=== PATIENT | female | born 1940 | race Caucasian/White ===

== ENCOUNTER 2017-04-11 11:36 | Inpatient (IN) | payer OTHER, MEDICARE ==
--- NOTE | 2017-04-11 12:20 | PDOC ---
Attending Attestation - Resident Resident Name: RomanNavneet - ED Attending Attestation I have performed the following: I have examined & evaluated the patient, The case was reviewed & discussed with the resident, I agree w/resident's findings & plan, Exceptions are as noted - HPI HPI: 04/11/17 12:33 76y F pmhx afib (on ac), cad, RA, hl, htn, presents with L neck pain radiating to the back, worsening with radaition of the L arm, has been worsening. No recent trauma/falls. Pt states it started gradually on Wednesday when she woke up , mild aching on the L shoulder/neck. Since then it had gotten gradually worse, until today it hurts with any movement. Pt states if sh eis sitting still and has her arm 'situated' sh eis pain free, but any movement of her arm, or trying to sit up will cause her pain. Pt does endorse some SOB since tihs started. Pt denies any numbness/tingling/wekaness, dizziness/vertigo, vision changes, hemoptysis, n/v, fever/chills, coughing, abd pain, back pain, trauma/falls/new excercises. On exam pt is in no distress until she tries to get up. GENERAL: The patient is awake, alert, and fully oriented, Nontoxic - in no acute distress. HEAD: Normocephalic, atraumatic. EYES: extraocular movements intact, sclera anicteric, conjunctiva clear. ENT: Normal voice, Moist mucous membranes. NECK: Normal range of motion, supple, no reproducible neck tenderness, no stridor/bruit LUNGS: bibasilar rales HEART: irregularly irregular ABDOMEN: Soft, nontender, normoactive bowel sounds. No guarding, no rebound. . No CVA tenderness EXTREMITIES: pulses symmetirc b/l, Normal range of motion, no edema. mild tendeness to the trapezius, anterior aspect of shoulder without rashes/ ecchymosis or signs of trauma NEUROLOGICAL: No facial assymetry, Normal speech, sensatio nsymmetric in face, arms/legs. PSYCH: Normal mood, normal affect. SKIN: Warm, Dry, normal turgor, ddx likely muscular pain, but consider possible carotid/aortic dissection, atypical acs will ck labs will obtain blood work, cxr ekg to screen for acs will reassess - Physicial Exam PE: 04/12/17 20:25 see above - Medical Decision Making 04/11/17 16:54 pts cxr noted for cardiomegaly obtained CTa Chest/abd to r/o disesction no dissection or PE however small to moderate effsion noted do not suspect that this is the caues of her pain, however may be relateble to her sob - will discuss with cardiology regarding disposition but anticipate admission/obs Heart Score/ECG Review - ECG Impressions Comment:: 04/11/17 13:05 Twelve-lead EKG was performed and reviewed by me. Irregularly irregular Rate of 102 T wave flattening in V5 V6, T-wave inversions in 1 and aVL
[2017-04-11] MEDS ORDERED: morphine CARPU-JECT 2 MG/1 ML DISP.SYRIN IVPUSH ONE (12:38)
[2017-04-11] MEDS ORDERED: MORPHINE SULFATE 10 MG/1 ML *VIAL ONE ×2 (12:40→15:22)
[2017-04-11 12:47] LABS: HEMATOCRIT 38.4 % (32.4-45.2); HEMOGLOBIN 13.2 GM/dL (10.7-15.3); MCH 34.9 pg (25.7-33.7); MCHC 34.3 g/dl (32.0-36.0); MEAN CELL VOLUME 101.6 fl (80-96); MEAN PLT VOLUME 7.3 fl (7.5-11.1); PLATELET COUNT 210 K/MM3 (134-434); RBC 3.78 M/mm3 (3.60-5.2); RDW 13.1 % (11.6-15.6)
[2017-04-11 12:59] LABS: INR 1.22 (0.82-1.09); PROTHROMBIN TIME (PATIENT) 13.8 SEC (9.98-11.88)
[2017-04-11 13:02] LABS: ACTIVATED PTT 40.3 SECONDS (26.9-34.4)
[2017-04-11] MEDS ORDERED: ACETAMINOPHEN 325 MG TABLET (FP) PO ONE (13:09)
[2017-04-11] MEDS ORDERED: ACETAMINOPHEN 325 MG TABLET (FP) ONE (13:41)
--- NOTE | 2017-04-11 13:44 | PDOC ---
History of Present Illness - General Chief Complaint: Chest Pain Stated Complaint: LT ARM PAIN, SOB Time Seen by Provider: 04/11/17 12:04 History Source: Patient Exam Limitations: No Limitations - History of Present Illness Initial Comments: 04/11/17 13:43 76F with pmh of gouty arthritis, cardiac disorder with stent placement, atrial fibrillation on Xarelto, hypertension, hyperlipidemia presents with pain over her left back of her neck down to her back to the right scapula and down the left arm since Wednesday. She states that she also has decreased range of motion in her left arm due to pain, No headache, nausea, vomiting, abdominal pain, weakness. 04/11/17 13:44 04/11/17 13:55 Past History - Past Medical History Allergies/Adverse Reactions: Allergies Allergy/AdvReac Type Severity Reaction Status Date / Time No Known Allergies Allergy Verified 04/11/17 11:38 Home Medications: Ambulatory Orders Aspirin 81 mg PO DAILY 04/11/17 Atorvastatin Ca [Lipitor] 20 mg PO HS 04/11/17 Diltiazem Cd [Cardizem Cd -] 240 mg PO DAILY 04/11/17 Lisinopril [Prinivil -] 40 mg PO DAILY 04/11/17 Rivaroxaban [Xarelto -] 20 mg PO DAILY 04/11/17 Cardiac Disorders: Yes (afib) CVA: No COPD: No HTN: Yes Kidney Stones: Yes - Surgical History Cardiac Surgery: Yes (card stent) - Suicide/Smoking/Psychosocial Hx Smoking History: Current every day smoker Number of Cigarettes Smoked Daily: 3 Information on smoking cessation initiated: Yes 'Breaking Loose' booklet given: 04/11/17 Hx Alcohol Use: No Drug/Substance Use Hx: No Substance Use Type: None Review of Systems - Review of Systems Able to Perform ROS?: Yes Is the patient limited Sinhala proficient: No Constitutional: No: Symptoms Reported HEENTM: No: Symptoms Reported Respiratory: No: Symptoms reported Cardiac (ROS): No: Symptoms Reported ABD/GI: No: Symptoms Reported : No: Symptoms Reported Musculoskeletal: Yes: See HPI Integumentary: No: Symptoms Reported Neurological: No: Symptoms reported All Other Systems: Reviewed and Negative *Physical Exam - Vital Signs Last Vital Signs Temp Pulse Resp BP Pulse Ox 98.3 F 94 H 18 148/100 100 04/11/17 11:39 04/11/17 11:39 04/11/17 11:39 04/11/17 11:39 04/11/17 11:39 - Physical Exam General Appearance: Yes: Nourished, Appropriately Dressed, Apparent Distress HEENT: positive: EOMI, SHANAE, Normal ENT Inspection Neck: positive: Tender Respiratory/Chest: positive: Lungs Clear, Normal Breath Sounds. negative: Chest Tender, Respiratory Distress Cardiovascular: positive: Regular Rhythm, Regular Rate, S1, S2 Gastrointestinal/Abdominal: positive: Normal Bowel Sounds, Flat, Soft. negative : Tender Extremity: positive: Normal Capillary Refill, Normal Inspection, Normal Range of Motion Neurologic: positive: Fully Oriented, Alert, Normal Mood/Affect, Normal Response ED Treatment Course - LABORATORY CBC & Chemistry Diagram: 04/11/17 12:30 04/11/17 13:53 - ADDITIONAL ORDERS Additional order review: Laboratory Results 04/11/17 04/11/17 04/11/17 Unknown 12:30 12:30 PT with INR INR PTT (Actin FS) Sodium Cancelled Potassium Cancelled Chloride Cancelled Carbon Dioxide Cancelled Anion Gap Cancelled BUN Cancelled Creatinine Cancelled Creat Clearance w eGFR Cancelled Random Glucose Cancelled Calcium Cancelled Total Bilirubin Cancelled AST Cancelled ALT Cancelled Alkaline Phosphatase Cancelled Creatine Kinase Cancelled Troponin I Cancelled Total Protein Cancelled Albumin Cancelled Blood Type O POSITIVE Antibody Screen Negative 04/11/17 12:30 PT with INR 13.80 H INR 1.22 H PTT (Actin FS) 40.3 H Sodium Potassium Chloride Carbon Dioxide Anion Gap BUN Creatinine Creat Clearance w eGFR Random Glucose Calcium Total Bilirubin AST ALT Alkaline Phosphatase Creatine Kinase Troponin I Total Protein Albumin Blood Type Antibody Screen 04/11/17 12:30 RBC 3.78 MCV 101.6 H MCHC 34.3 RDW 13.1 MPV 7.3 L Neutrophils % No Result Required. Lymphocytes % No Result Required. - Medications Given in the ED: ED Medications Discontinued Medications Generic Name Dose Route Start Last Admin Trade Name Freq PRN Reason Stop Dose Admin Morphine Sulfate 2 mg 04/11/17 12:38 04/11/17 12:44 Morphine Injection - IVPUSH 04/11/17 12:39 2 mg ONCE ONE Administration Medical Decision Making - Medical Decision Making 04/11/17 13:57 will evaluate pain with xray, b/l bp and basic labs. *DC/Admit/Observation/Transfer Diagnosis at time of Disposition: Pericardial effusion - Discharge Dispostion Disposition: HOME Condition at time of disposition: Good Admit: Yes - Referrals - Patient Instructions - Post Discharge Activity
[2017-04-11 14:06] LABS: PLATELET ESTIMATE ADEQUATE
--- NOTE | 2017-04-11 14:19 | EKG ---
Test Reason : Blood Pressure : / mmHG Vent. Rate : 102 BPM Atrial Rate : 105 BPM P-R Int : 000 ms QRS Dur : 108 ms QT Int : 336 ms P-R-T Axes : 000 -18 132 degrees QTc Int : 437 ms ATRIAL FIBRILLATION WITH RAPID VENTRICULAR RESPONSE MINIMAL VOLTAGE CRITERIA FOR LVH, MAY BE NORMAL VARIANT ABNORMAL ECG NO PREVIOUS ECGS AVAILABLE Confirmed by MD RADHA, CHRISTOPH ([id number]) on 04/11/2017 2:18:41 PM Referred By: Confirmed By:CHRISTOPH GARCIA MD
[2017-04-11 14:58] LABS: ALBUMIN 3.4 g/dl (3.4-5.0); ANION GAP 6 (8-16); BILIRUBIN,TOTAL 0.6 mg/dL (0.2-1.0); BLOOD UREA NITROGEN 10 mg/dL (7-18); CALCIUM 9.3 mg/dL (8.5-10.1); CHLORIDE 104 mmol/L (98-107); CO2 30 mmol/L (21-32); CREATININE 0.5 mg/dL (0.55-1.02); GLUCOSE,RANDOM 89 mg/dL (74-106); POTASSIUM 4.6 mmol/L (3.5-5.1); SGOT/AST 11 U/L (15-37); SGPT/ALT 13 U/L (12-78); SODIUM 140 mmol/L (136-145); TOT PROT 6.5 g/dl (6.4-8.2)
[2017-04-11 15:01] LABS: ALK PHOS 139 U/L (45-117)
[2017-04-11] MEDS ORDERED: morphine CARPU-JECT 4 MG/1 ML DISP.SYRIN IVPUSH ONE (15:20)
[2017-04-11] MEDS ORDERED: CYCLOBENZAPRINE HCL 10 MG TABLET (FP) PO ONE (16:14)
[2017-04-11] MEDS ORDERED: CYCLOBENZAPRINE HCL 10 MG TABLET (FP) ONE (16:33)
--- NOTE | 2017-04-11 19:34 | PN ---
Teaching Attending Note Name of Resident: Denice Herrera ATTENDING PHYSICIAN STATEMENT I saw and evaluated the patient. I reviewed the resident's note and discussed the case with the resident. I agree with the resident's findings and plan as documented. SUBJECTIVE: 76 F with pmhx. of gouty arthritits, Cardiac disorder?? CAD w stents, A-Fob on Xarelto, HTN, HLD, who presents with left back and neck pain radiating to right scapula. OBJECTIVE: Physical: VS: Vital Signs Period Temp Pulse Resp BP Sys/Wilder Pulse Ox Last 24 Hr 98.3 F 89-94 18-18 148-157/77-100 99-100 GEN: HEENT: CARD: RESP: ABD: EXT: CBCD WBC 8.0 K/mm3 (4.0-10.0) 04/11/17 12:30 RBC 3.78 M/mm3 (3.60-5.2) 04/11/17 12:30 Hgb 13.2 GM/dL (10.7-15.3) 04/11/17 12:30 Hct 38.4 % (32.4-45.2) 04/11/17 12:30 MCV 101.6 fl (80-96) H 04/11/17 12:30 MCHC 34.3 g/dl (32.0-36.0) 04/11/17 12:30 RDW 13.1 % (11.6-15.6) 04/11/17 12:30 Plt Count 210 K/MM3 (134-434) 04/11/17 12:30 MPV 7.3 fl (7.5-11.1) L 04/11/17 12:30 CMP Sodium 140 mmol/L (136-145) 04/11/17 13:53 Potassium 4.6 mmol/L (3.5-5.1) 04/11/17 13:53 Chloride 104 mmol/L (98-107) 04/11/17 13:53 Carbon Dioxide 30 mmol/L (21-32) 04/11/17 13:53 Anion Gap 6 (8-16) L 04/11/17 13:53 BUN 10 mg/dL (7-18) 04/11/17 13:53 Creatinine 0.5 mg/dL (0.55-1.02) L 04/11/17 13:53 Creat Clearance w eGFR > 60 (>60) 04/11/17 13:53 Random Glucose 89 mg/dL (74-106) 04/11/17 13:53 Calcium 9.3 mg/dL (8.5-10.1) 04/11/17 13:53 Total Bilirubin 0.6 mg/dL (0.2-1.0) 04/11/17 13:53 AST 11 U/L (15-37) L 04/11/17 13:53 ALT 13 U/L (12-78) 04/11/17 13:53 Alkaline Phosphatase 139 U/L (45-117) H 04/11/17 13:53 Total Protein 6.5 g/dl (6.4-8.2) 04/11/17 13:53 Albumin 3.4 g/dl (3.4-5.0) 04/11/17 13:53 CARDIAC ENZYMES Creatine Kinase Cancelled 04/11/17 Unknown Troponin I Cancelled 04/11/17 Unknown CHEST CTA: No PE, Small- Mod, Cardio Effusion, Small R. Renal Cyst 2cm, 2 cm R. adrenal lesion represents adrenal adenoma. NO Ct evidence of acute proces EKG: A-Fib 105 W RVR QtC 437, T wave flat V5/V6 TWI AVL. Abdomen CTA- Negative CXR- Cardiomegaly, No Acute Process ASSESSMENT AND PLAN: 76 F with gouty arthritis who presents with shoulder pain found to have a pericarial effusion.
[2017-04-11 21:24] VITALS: BMI 28.8
--- NOTE | 2017-04-11 22:11 | HP ---
Admitting History and Physical - Admission Chief Complaint: Left Shoulder/Arm pain, Neck Pain, SOB History of Present Illness: This is a 76 y/o woman from home. Who presents to the ED with left shoulder, left arm pain radiating to her neck and SOB x 2 days. Patient describes the pain as throbbing/aching increased on movement. Patient denies fall or recent trauma. Patient denies dizziness, CP or palpitations. Patient denies fever, chills, cough, AP, N/V/D, constipation, dysuria. History Source: Patient Limitations to Obtaining History: No Limitations - Past Medical History Cardiovascular: Yes: AFIB, CAD, HTN, Hyperlipdemia ...: No Musculoskeletal: Yes: Chronic low back pain, Osteoarthritis Rheumatology: Yes: Gout (Arthritis) - Past Surgical History Past Surgical History: Yes: Stent - Smoking History Smoking history: Current every day smoker Have you smoked in the past 12 months: Yes Aproximately how many cigarettes per day: 3 - Alcohol/Substance Use Hx Alcohol Use: No History of Substance Use: reports: None - Social History ADL: Independent History of Recent Travel: No Home Medications - Allergies Allergies/Adverse Reactions: Allergies Allergy/AdvReac Type Severity Reaction Status Date / Time No Known Allergies Allergy Verified 04/11/17 11:38 - Home Medications Home Medications: Ambulatory Orders Aspirin 81 mg PO DAILY 04/11/17 Atorvastatin Ca [Lipitor] 20 mg PO HS 04/11/17 Diltiazem Cd [Cardizem Cd -] 240 mg PO DAILY 04/11/17 Lisinopril [Prinivil -] 40 mg PO DAILY 04/11/17 Rivaroxaban [Xarelto -] 20 mg PO DAILY 04/11/17 Zolpidem Tartrate [Ambien] 10 mg PO HS 04/11/17 Review of Systems - Review of Systems Constitutional: reports: No Symptoms Eyes: reports: No Symptoms HENT: reports: No Symptoms Neck: reports: Decreased ROM, Pain on Movement Cardiovascular: reports: Shortness of Breath Respiratory: reports: SOB Gastrointestinal: reports: No Symptoms Genitourinary: reports: No Symptoms Breasts: reports: No Symptoms Reported Musculoskeletal: reports: Back Pain, Decreased ROM, Extremity Pain (left shoulder/humerus), Joint Pain Integumentary: reports: No Symptoms Neurological: reports: No Symptoms Endocrine: reports: No Symptoms Hematology/Lymphatic: reports: No Symptoms Psychiatric: reports: No Symptoms Physical Examination Vital Signs: Vital Signs Temperature 98.3 F 04/11/17 21:00 Pulse Rate 102 H 04/11/17 21:00 Respiratory Rate 20 04/11/17 21:00 Blood Pressure 178/90 04/11/17 21:00 O2 Sat by Pulse Oximetry (%) 98 04/11/17 21:00 Constitutional: Yes: Mild Distress, Obese Eyes: Yes: WNL, Conjunctiva Clear, PERRL HENT: Yes: WNL, Atraumatic, Normocephalic Neck: Yes: Supple, Trachea Midline, Decreased ROM, Tenderness Cardiovascular: Yes: Pulse Irregular, S1, S2 Respiratory: Yes: WNL, Regular, CTA Bilaterally Gastrointestinal: Yes: WNL, Normal Bowel Sounds, Soft, Abdomen, Obese ...Rectal Exam: Yes: Deferred Renal/: Yes: WNL Breast(s): Yes: WNL Musculoskeletal: Yes: Back Pain, Joint Stiffness Edema: No Peripheral Pulses WNL: Yes Integumentary: Yes: WNL Neurological: Yes: WNL, Alert, Oriented, Cran Nerves II-XII Intact ...Motor Strength: LUE (3/5), LLE (5/5), RUE (5/5), RLE (5/5) Psychiatric: Yes: WNL, Alert, Oriented Labs: CBC, BMP 04/11/17 12:30 04/11/17 13:53 Laboratory Results - last 24 hr 04/11/17 04/11/17 04/11/17 12:30 12:30 12:30 WBC 8.0 RBC 3.78 Hgb 13.2 Hct 38.4 MCV 101.6 H MCH 34.9 H MCHC 34.3 RDW 13.1 Plt Count 210 MPV 7.3 L Total Counted 100 Neutrophils % No Result Required. Neutrophils % (Manual) 71.0 Lymphocytes % No Result Required. Lymphocytes % (Manual) 6.0 L Monocytes % (Manual) 23 H* Platelet Estimate Adequate Platelet Comment No clumping noted PT with INR 13.80 H INR 1.22 H PTT (Actin FS) 40.3 H Sodium Potassium Chloride Carbon Dioxide Anion Gap BUN Creatinine Creat Clearance w eGFR Random Glucose Calcium Total Bilirubin AST ALT Alkaline Phosphatase Creatine Kinase Troponin I Total Protein Albumin Urine Color Urine Appearance Urine pH Ur Specific [place] Urine Protein Urine Glucose (UA) Urine Ketones Urine Blood Urine Nitrite Urine Bilirubin Urine Urobilinogen Ur Leukocyte Esterase Urine WBC (Auto) Urine RBC (Auto) Ur Epithelial Cells Urine Bacteria HIV 1&2 Antibody Screen HIV P24 Antigen Blood Type O POSITIVE Antibody Screen Negative 04/11/17 04/11/17 04/11/17 12:30 13:18 13:53 WBC RBC Hgb Hct MCV MCH MCHC RDW Plt Count MPV Total Counted Neutrophils % Neutrophils % (Manual) Lymphocytes % Lymphocytes % (Manual) Monocytes % (Manual) Platelet Estimate Platelet Comment PT with INR INR PTT (Actin FS) Sodium Cancelled 140 Potassium Cancelled 4.6 Chloride Cancelled 104 Carbon Dioxide Cancelled 30 Anion Gap Cancelled 6 L BUN Cancelled 10 Creatinine Cancelled 0.5 L Creat Clearance w eGFR Cancelled > 60 Random Glucose Cancelled 89 Calcium Cancelled 9.3 Total Bilirubin Cancelled 0.6 AST Cancelled 11 L ALT Cancelled 13 Alkaline Phosphatase Cancelled 139 H Creatine Kinase 21 L Troponin I < 0.02 Total Protein Cancelled 6.5 Albumin Cancelled 3.4 Urine Color Urine Appearance Urine pH Ur Specific [place] Urine Protein Urine Glucose (UA) Urine Ketones Urine Blood Urine Nitrite Urine Bilirubin Urine Urobilinogen Ur Leukocyte Esterase Urine WBC (Auto) Urine RBC (Auto) Ur Epithelial Cells Urine Bacteria HIV 1&2 Antibody Screen HIV P24 Antigen Blood Type O POSITIVE Antibody Screen 04/11/17 04/11/17 04/11/17 13:53 23:55 Unknown WBC RBC Hgb Hct MCV MCH MCHC RDW Plt Count MPV Total Counted Neutrophils % Neutrophils % (Manual) Lymphocytes % Lymphocytes % (Manual) Monocytes % (Manual) Platelet Estimate Platelet Comment PT with INR INR PTT (Actin FS) Sodium Potassium Chloride Carbon Dioxide Anion Gap BUN Creatinine Creat Clearance w eGFR Random Glucose Calcium Total Bilirubin AST ALT Alkaline Phosphatase Creatine Kinase Cancelled Troponin I < 0.02 Cancelled Total Protein Albumin Urine Color Urine Appearance Urine pH Ur Specific [place] Urine Protein Urine Glucose (UA) Urine Ketones Urine Blood Urine Nitrite Urine Bilirubin Urine Urobilinogen Ur Leukocyte Esterase Urine WBC (Auto) Urine RBC (Auto) Ur Epithelial Cells Urine Bacteria HIV 1&2 Antibody Screen Negative HIV P24 Antigen Negative Blood Type Antibody Screen 04/12/17 00:01 WBC RBC Hgb Hct MCV MCH MCHC RDW Plt Count MPV Total Counted Neutrophils % Neutrophils % (Manual) Lymphocytes % Lymphocytes % (Manual) Monocytes % (Manual) Platelet Estimate Platelet Comment PT with INR INR PTT (Actin FS) Sodium Potassium Chloride Carbon Dioxide Anion Gap BUN Creatinine Creat Clearance w eGFR Random Glucose Calcium Total Bilirubin AST ALT Alkaline Phosphatase Creatine Kinase Troponin I Total Protein Albumin Urine Color Straw Urine Appearance Clear Urine pH 6.0 Ur Specific [place] 1.019 Urine Protein 2+ H Urine Glucose (UA) Negative Urine Ketones Trace H Urine Blood Negative Urine Nitrite Negative Urine Bilirubin Negative Urine Urobilinogen Negative Ur Leukocyte Esterase Negative Urine WBC (Auto) <1 Urine RBC (Auto) 2 Ur Epithelial Cells Rare Urine Bacteria Few HIV 1&2 Antibody Screen HIV P24 Antigen Blood Type Antibody Screen Intake & Output 04/09/17 04/10/17 04/11/17 04/12/17 23:59 23:59 23:59 23:59 Output Total 100 Balance -100 Weight 78.744 kg Imaging - Results Chest X-ray: Report Reviewed, Image Reviewed Cat Scan: Report Reviewed, Image Reviewed EKG: Image Reviewed Problem List - Problems (1) Pericardial effusion Code(s): I31.3 - PERICARDIAL EFFUSION (NONINFLAMMATORY) (2) Joint effusion of knee Code(s): M25.469 - EFFUSION, UNSPECIFIED KNEE Qualifiers: Laterality: left Qualified Code(s): M25.462 - Effusion, left knee Hospitalist Screening - Colonoscopy Questionnaire Colonoscopy Questionnaire: Colonoscopy Questionnaire
[2017-04-11] MEDS: ATORVASTATIN CA 20 MG TABLET (FP) PO SCH (22:53)
[2017-04-11] MEDS: ZOLPIDEM TARTRATE 5 MG TABLET PO PRN (22:53)
[2017-04-11] MEDS: MORPHINE SULFATE 10 MG/1 ML *VIAL IVPUSH PRN (22:53)
[2017-04-11] MEDS ORDERED: RIVAROXABAN 20 MG TABLET PO ONE (23:18)
[2017-04-12 00:40] LABS: URINE APPEARANCE CLEAR; URINE BILIRUBIN NEGATIVE (NEGATIVE); URINE BLOOD NEGATIVE (NEGATIVE); URINE COLOR STRAW; URINE GLUCOSE (UA) NEGATIVE (NEGATIVE); URINE KETONE TRACE (NEGATIVE); URINE LEUK ESTERASE NEGATIVE (NEGATIVE); URINE NITRITE NEGATIVE (NEGATIVE); URINE UROBILINOGEN NEGATIVE mg/dL (0.2-1.0)
[2017-04-12 00:41] LABS: URINE PROTEIN 2+ (NEGATIVE)
[2017-04-12 00:42] LABS: EPI CELLS RARE /HPF (FEW); URINE BACTERIA FEW /hpf (NONE SEEN)
[2017-04-12] MEDS: MORPHINE SULFATE 10 MG/1 ML *VIAL IVPUSH PRN ×3 (04:50→16:27)
[2017-04-12 07:10] LABS: BASO % 0.4 % (0-2.0); EOS % 0.3 % (0-4.5); HEMATOCRIT 38.1 % (32.4-45.2); HEMOGLOBIN 13.4 GM/dL (10.7-15.3); LYMPH % 8.5 % (8-40); MCH 35.5 pg (25.7-33.7); MCHC 35.1 g/dl (32.0-36.0); MEAN CELL VOLUME 101.3 fl (80-96); MEAN PLT VOLUME 7.5 fl (7.5-11.1); MONO % 22.2 % (3.8-10.2); NEUT % 68.6 % (42.8-82.8); PLATELET COUNT 217 K/MM3 (134-434); RBC 3.76 M/mm3 (3.60-5.2); RDW 13.2 % (11.6-15.6); WHITE BLOOD COUNT 6.6 K/mm3 (4.0-10.0)
[2017-04-12 07:47] LABS: ANION GAP 10 (8-16); BLOOD UREA NITROGEN 9 mg/dL (7-18); CALCIUM 9.7 mg/dL (8.5-10.1); CHLORIDE 103 mmol/L (98-107); CO2 27 mmol/L (21-32); CREATININE 0.5 mg/dL (0.55-1.02); GLUCOSE,RANDOM 97 mg/dL (74-106); MAGNESIUM 1.7 mg/dL (1.8-2.4); PHOSPHOROUS 2.5 mg/dL (2.5-4.9); POTASSIUM 4.1 mmol/L (3.5-5.1); SODIUM 140 mmol/L (136-145)
[2017-04-12 09:34] LABS: CHOLESTEROL 167 mg/dL (50-200); HDL CHOLESTEROL 73 mg/dL (40-60); LDL CHOLESTEROL (ONLY SJRH) 81 mg/dL (5-100); TRIGLYCERIDES 117 mg/dL (35-160)
[2017-04-12] MEDS ORDERED: MAGNESIUM SULF 50% (8.12 MEQ/2 ML-1 GM VIAL) IVPB ONE (09:52)
[2017-04-12] MEDS: ASPIRIN 81 MG CHEWABLE TABLETS PO SCH (10:04)
[2017-04-12] MEDS: LISINOPRIL 20 MG TABLET (FP) PO SCH (10:04)
--- NOTE | 2017-04-12 10:43 | EKG ---
Test Reason : Blood Pressure : / mmHG Vent. Rate : 079 BPM Atrial Rate : 136 BPM P-R Int : 000 ms QRS Dur : 098 ms QT Int : 348 ms P-R-T Axes : 000 -05 142 degrees QTc Int : 399 ms ATRIAL FIBRILLATION SEPTAL INFARCT , AGE UNDETERMINED ABNORMAL ECG WHEN COMPARED WITH ECG OF 11-APR-2017 11:47, VENT. RATE HAS DECREASED Confirmed by LORE ALVAREZ MD ([id number]) on 04/12/2017 10:43:03 AM Referred By: Confirmed By:LORE ALVAREZ MD
[2017-04-12] MEDS ORDERED: MAGNESIUM SULFATE IN WATER 2 GM/50 ML IVPB IVPB ONE (11:00)
--- NOTE | 2017-04-12 11:45 | CON.CARD ---
Consult Consult Specialty:: cardio - History of Present Illness Chief Complaint: L neck/arm pain History of Present Illness: 76y F presents with severe pain in L neck pain radiating to the back, worsening with movement of the L arm. Going on few days. No pain if completely still, worse when moves the L arm. no chest pain. started noticing palpitations few days ago as well. has had this before with afib but hasn't felt this in a while. sees dr viera for cardio ([facility]), has been maintained on diltiazem at home with no palpitations in a long time. noticed episodic mild sob as well, at rest e.g. lying in bed--only since palpitations started pmhx: afib (on ac), cad, RA, hl, htn - Past Medical History Cardio/Vascular: Yes: AFIB, CAD, HTN, Hyperlipdemia ...: No Musculoskeletal: Yes: Chronic low back pain, Osteoarthritis Rheumatology: Yes: Gout (Arthritis) - Past Surgical History Past Surgical History: Yes: Stent - Alcohol/Substance Use Hx Alcohol Use: No History of Substance Use: reports: None - Smoking History Smoking history: Current every day smoker Have you smoked in the past 12 months: Yes Aproximately how many cigarettes per day: 3 - Social History ADL: Independent History of Recent Travel: No Home Medications - Allergies Allergies/Adverse Reactions: Allergies Allergy/AdvReac Type Severity Reaction Status Date / Time No Known Allergies Allergy Verified 04/11/17 11:38 - Home Medications Home Medications: Ambulatory Orders Aspirin 81 mg PO DAILY 04/11/17 Atorvastatin Ca [Lipitor] 20 mg PO HS 04/11/17 Diltiazem Cd [Cardizem Cd -] 240 mg PO DAILY 04/11/17 Lisinopril [Prinivil -] 40 mg PO DAILY 04/11/17 Rivaroxaban [Xarelto -] 20 mg PO DAILY 04/11/17 Zolpidem Tartrate [Ambien] 10 mg PO HS 04/11/17 Family Disease History - Family Disease History Family History: Denies (no known cmp) Review of Systems - Review of Systems Constitutional: denies: Chills, Fever Eyes: denies: Eye Pain HENT: denies: Nasal Congestion Neck: denies: Stiffness Cardiovascular: denies: Edema Respiratory: denies: Orthopnea, PND Gastrointestinal: denies: Diarrhea, Rectal Bleeding Genitourinary: denies: Burning, Hematuria Musculoskeletal: denies: Muscle Pain Integumentary: denies: Rash Neurological: denies: Numbness, Seizure, Syncope Endocrine: denies: Excessive Sweating Hematology/Lymphatic: denies: Excessive Bleeding Vital Signs: Vital Signs Temperature 99.4 F 04/12/17 05:40 Pulse Rate 96 H 04/12/17 05:40 Respiratory Rate 20 04/12/17 05:41 Blood Pressure 144/79 04/12/17 05:40 O2 Sat by Pulse Oximetry (%) 98 04/12/17 05:41 Constitutional: Yes: Well Nourished, No Distress Eyes: No: Sclera Icterus HENT: No: Nasal Congestion Neck: No: Decreased ROM Respiratory: Yes: CTA Bilaterally. No: Accessory Muscle Use, Rales, Wheezes Gastrointestinal: Yes: Normal Bowel Sounds. No: Distention, Hepatomegaly, Palpable Mass, Tenderness Cardiovascular: Yes: Pulse Irregular JVD: No Carotid Bruit: No PMI: Non-Displaced Heart Sounds: Yes: S1, S2. No: Gallop Murmur: No: Systolic Murmur, Diastolic Murmur Musculoskeletal: Yes: Other (No kyphosis) Extremities: No: Cold, Cyanosis Edema: No Peripheral Pulses: 2+ Left Carotid, 2+ Right Carotid, 2+ Left Doralis Pedis, 2+ Right Dorsalis Pedis Integumentary: No: Jaundice Neurological: Yes: Alert, Oriented (x3) Psychiatric: No: Agitated - Other Data Labs, Other Data: CBC, BMP 04/12/17 06:45 04/12/17 06:45 INR, PTT INR 1.22 (0.82-1.09) H 04/11/17 12:30 Troponin, BNP 04/11/17 04/11/17 04/11/17 13:53 23:55 Unknown Troponin I < 0.02 < 0.02 Cancelled 04/12/17 06:45 Troponin I < 0.02 Troponin, BNP 04/11/17 04/11/17 04/11/17 13:53 23:55 Unknown Troponin I < 0.02 < 0.02 Cancelled 04/12/17 06:45 Troponin I < 0.02 Laboratory Tests 04/11/17 04/11/17 04/12/17 13:53 23:55 06:45 WBC 6.6 Hgb 13.4 Plt Count 217 Sodium Potassium Carbon Dioxide BUN Creatinine AST 11 L ALT 13 Troponin I < 0.02 < 0.02 Triglycerides Cholesterol Total LDL Cholesterol HDL Cholesterol 04/12/17 06:45 WBC Hgb Plt Count Sodium 140 Potassium 4.1 Carbon Dioxide 27 BUN 9 Creatinine 0.5 L AST ALT Troponin I < 0.02 Triglycerides 117 Cholesterol 167 Total LDL Cholesterol 81 HDL Cholesterol 73 H tele: afib with HRs 120s-170s Assessment/Plan EKG 04/11: afib, HR 105. ? LVH with repol abn (nonsp ST-Ts). no path q's (no old ekg) #2: no change L neck/arm pain: -sx's clearly mskel, mainly occurs with movement -no isch ECG findings, trop neg x 3. -per hospitalist afib: -h/o afib, no recent sx's (palpitations) until few days prior to admission -rapid HRs here--suspect atypical sob at rest at home is related to rapid afib ( no signs chf here) -cont home cardizem 240 qd. received a dose last night and then 10am today. HR currently 100s. -add low dose metoprolol. -observe HR with activity--if HR mostly <120s with activity and no more afib sx' s, will defer to outpt f/u with cardio (dr viera) regarding ? 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
[2017-04-12] MEDS: metoPROLOL SUCCINATE 25 MG TAB.SR.24H (FP) PO SCH ×2 (13:33→21:18)
[2017-04-12 14:14] LABS: HBsAG SCREEN Negative (Negative)
[2017-04-12] MEDS: LIDOCAINE 5% TOPICAL PATCH TP SCH (16:27)
--- NOTE | 2017-04-12 17:53 | PN ---
Physical Exam: SUBJECTIVE: Patient seen and examined at the bedside. c/o of left should pain, tender to touch, unable to fully extend her left arm Denies trauma, falls, overexertion. OBJECTIVE: left shoulder xray now Lidoderm patch physical therapy Vital Signs Period Temp Pulse Resp BP Sys/Wilder Pulse Ox Last 24 Hr 98.3 F-99.7 F 82-104 18-20 134-178/64-90 96-99 GENERAL: The patient is awake, alert, and fully oriented, in no acute distress. HEAD: Normal with no signs of trauma. EYES: PERRL, extraocular movements intact, sclera anicteric, conjunctiva clear. No ptosis. ENT: Ears normal, nares patent, oropharynx clear without exudates, moist mucous membranes. NECK: Trachea midline, full range of motion, supple. LUNGS: Breath sounds equal, clear to auscultation bilaterally, no wheezes, no crackles, no accessory muscle use. HEART: Regular rate and rhythm, ABDOMEN: Soft, nontender, nondistended, normoactive bowel sounds, no guarding, no rebound, no hepatosplenomegaly, no masses. EXTREMITIES: left upper arm, limited ROM, painful/tender to touch on left shoulder, will xray left shoulder NEUROLOGICAL: Cranial nerves II through XII grossly intact. Normal speech, gait not observed. PSYCH: Normal mood, normal affect. SKIN: Warm, dry, normal turgor, no rashes or lesions noted Laboratory Results - last 24 hr 04/11/17 04/11/17 04/12/17 14:16 23:55 00:01 WBC RBC Hgb Hct MCV MCH MCHC RDW Plt Count MPV Neutrophils % Lymphocytes % Monocytes % Eosinophils % Basophils % Sodium Potassium Chloride Carbon Dioxide Anion Gap BUN Creatinine Random Glucose Hemoglobin A1c % Calcium Phosphorus Magnesium Troponin I < 0.02 Triglycerides Cholesterol Total LDL Cholesterol HDL Cholesterol Urine Color Straw Urine Appearance Clear Urine pH 6.0 Ur Specific Dudley 1.019 Urine Protein 2+ H Urine Glucose (UA) Negative Urine Ketones Trace H Urine Blood Negative Urine Nitrite Negative Urine Bilirubin Negative Urine Urobilinogen Negative Ur Leukocyte Esterase Negative Urine WBC (Auto) <1 Urine RBC (Auto) 2 Ur Epithelial Cells Rare Urine Bacteria Few Hep Bs Antigen Negative 04/12/17 04/12/17 04/12/17 06:45 06:45 06:45 WBC 6.6 RBC 3.76 Hgb 13.4 Hct 38.1 MCV 101.3 H MCH 35.5 H MCHC 35.1 RDW 13.2 Plt Count 217 MPV 7.5 Neutrophils % 68.6 Lymphocytes % 8.5 Monocytes % 22.2 H Eosinophils % 0.3 Basophils % 0.4 Sodium 140 Potassium 4.1 Chloride 103 Carbon Dioxide 27 Anion Gap 10 BUN 9 Creatinine 0.5 L Random Glucose 97 Hemoglobin A1c % Calcium 9.7 Phosphorus 2.5 Magnesium 1.7 L Troponin I < 0.02 Triglycerides 117 Cancelled Cholesterol 167 Cancelled Total LDL Cholesterol 81 Cancelled HDL Cholesterol 73 H Cancelled Urine Color Urine Appearance Urine pH Ur Specific Dudley Urine Protein Urine Glucose (UA) Urine Ketones Urine Blood Urine Nitrite Urine Bilirubin Urine Urobilinogen Ur Leukocyte Esterase Urine WBC (Auto) Urine RBC (Auto) Ur Epithelial Cells Urine Bacteria Hep Bs Antigen 04/12/17 06:45 WBC RBC Hgb Hct MCV MCH MCHC RDW Plt Count MPV Neutrophils % Lymphocytes % Monocytes % Eosinophils % Basophils % Sodium Potassium Chloride Carbon Dioxide Anion Gap BUN Creatinine Random Glucose Hemoglobin A1c % 4.8 Calcium Phosphorus Magnesium Troponin I Triglycerides Cholesterol Total LDL Cholesterol HDL Cholesterol Urine Color Urine Appearance Urine pH Ur Specific Dudley Urine Protein Urine Glucose (UA) Urine Ketones Urine Blood Urine Nitrite Urine Bilirubin Urine Urobilinogen Ur Leukocyte Esterase Urine WBC (Auto) Urine RBC (Auto) Ur Epithelial Cells Urine Bacteria Hep Bs Antigen Active Medications Generic Name Dose Route Start Last Admin Trade Name Freq PRN Reason Stop Dose Admin Aspirin 81 mg 04/12/17 10:00 04/12/17 10:04 Asa - PO 81 mg DAILY BRYCE Administration Atorvastatin Calcium 20 mg 04/11/17 22:00 04/11/17 22:53 Lipitor - PO 20 mg HS BRYCE Administration Diltiazem HCl 240 mg 04/12/17 10:00 04/12/17 10:05 Cardizem Cd - PO 240 mg DAILY BRYCE Administration Lidocaine 1 patch 04/12/17 15:45 04/12/17 16:27 Lidoderm Patch - TP 1 patch DAILY BRYCE Administration Lisinopril 40 mg 04/12/17 10:00 04/12/17 10:04 Prinivil PO 40 mg DAILY BRYCE Administration Metoprolol Succinate 25 mg 04/12/17 12:00 04/12/17 13:33 Toprol Xl - PO 25 mg BID BRYCE Administration Miscellaneous 1 each 04/12/17 22:00 Lidoderm Patch Removal MC DAILY@2200 [facility] Morphine Sulfate 4 mg 04/11/17 22:19 04/12/17 16:27 Morphine Injection - IVPUSH 04/12/17 22:18 4 mg Q6H PRN Administration PAIN LEVEL 7 - 10 Rivaroxaban 20 mg 04/12/17 17:30 Xarelto - PO DAILY@1730 [facility] Zolpidem Tartrate 5 mg 04/11/17 22:23 04/11/17 22:53 Ambien - PO 5 mg HS PRN Administration INSOMNIA ASSESSMENT/PLAN: Patient is a 76 year old female with a significant past medical history of atrial fibrillation, CAD, hypertension and hyperlipidemia. She presents to the ED with c/o left shoulder pain that radiates to her upper back into her right shoulder. She also presents with shortness of breath x 2 days. Patient describes the left shoulder pain as tender to touch 10/10 pain that limits her ability to move her left arm. She denies trauma of this arm, denies falls. She denies dizziness, chest pain or palpitations. On exam the left shoulder pain worsens with movement, there is a tender spot above the shoulder that is very tender to touch. She denies any shortness of breath, no chest pain. Imaging: Chest CTA: normal appearing thoracic and abd. aorta down through its bifurcation without evidence of aneurysmal dilatation aortic dissection. No PE. Small to moderate cardio effusion. Muscular: Left should pain, acute Pain on palpation of left shoulder Likely muscular, Will xray left shoulder CTA negative for PE No reported injury/trauma Lidoderm patch and pain control with Tylenol 650mg scheduled Ortho consult if pain not improving Physical therapy Cardiology: Atrial Fib, controlled hypertension, controlled Had episodes of rapid afib, now on metoprolol 25mg bid On Cardizem On Xarelto Shortness of breath, improving Troponins negative x 3 Tolerating room air ruled out for NC per cardiology CAD On ASA, Statin, Xarelto, Lisinopril 40mg daily HLD, chronic On Lipitor F.E.N. Fluids: tolerating PO Electrolytes: hypomag repleted Nutrition: low sodium diet Prophylaxis: DVT: on Xarelso GI: deferred Disposition: full code. On discharge, will need pre and post and follow up appointment with billet assembler. Visit type - Emergency Visit Emergency Visit: Yes ED Registration Date: 04/11/17 Care time: The patient presented to the Emergency Department on the above date and was hospitalized for further evaluation of their emergent condition. - New Patient This patient is new to me today: Yes Date on this admission: 04/12/17 - Critical Care Critical Care patient: No
[2017-04-12] MEDS ORDERED: ACETAMINOPHEN 325 MG TABLET (FP) PO PRN (17:58)
[2017-04-12] MEDS: RIVAROXABAN 20 MG TABLET PO SCH (18:29)
[2017-04-12] MEDS: ATORVASTATIN CA 20 MG TABLET (FP) PO SCH (21:18)
[2017-04-12] MEDS: ZOLPIDEM TARTRATE 5 MG TABLET PO PRN (21:18)
[2017-04-12] MEDS: ACETAMINOPHEN 325 MG TABLET (FP) PO SCH (21:18)
[2017-04-12] MEDS ORDERED: LIDOCAINE PATCH REMOVAL MC SCH (22:00)
[2017-04-12] MEDS ORDERED: oxyCODONE HCL 5 MG TABLET PO ONE (23:20)
[2017-04-13] MEDS ORDERED: oxyCODONE HCL 5 MG TABLET PO ONE (05:23)
[2017-04-13 07:06] LABS: HEMATOCRIT 39.4 % (32.4-45.2); HEMOGLOBIN 13.6 GM/dL (10.7-15.3); MCH 34.8 pg (25.7-33.7); MCHC 34.6 g/dl (32.0-36.0); MEAN CELL VOLUME 100.6 fl (80-96); MEAN PLT VOLUME 7.5 fl (7.5-11.1); PLATELET COUNT 245 K/MM3 (134-434); RBC 3.91 M/mm3 (3.60-5.2); RDW 13.4 % (11.6-15.6); WHITE BLOOD COUNT 8.2 K/mm3 (4.0-10.0)
[2017-04-13 07:34] LABS: ALBUMIN 3.3 g/dl (3.4-5.0); ALK PHOS 146 U/L (45-117); ANION GAP 10 (8-16); BILIRUBIN,TOTAL 0.8 mg/dL (0.2-1.0); BLOOD UREA NITROGEN 13 mg/dL (7-18); CALCIUM 9.7 mg/dL (8.5-10.1); CHLORIDE 100 mmol/L (98-107); CO2 28 mmol/L (21-32); CREATININE 0.6 mg/dL (0.55-1.02); GLUCOSE,RANDOM 113 mg/dL (74-106); MAGNESIUM 2.1 mg/dL (1.8-2.4); POTASSIUM 4.1 mmol/L (3.5-5.1); SGOT/AST 11 U/L (15-37); SGPT/ALT 10 U/L (12-78); SODIUM 138 mmol/L (136-145); TOT PROT 7.1 g/dl (6.4-8.2)
[2017-04-13] MEDS: metoPROLOL SUCCINATE 25 MG TAB.SR.24H (FP) PO SCH ×2 (09:44→21:42)
[2017-04-13] MEDS: ASPIRIN 81 MG CHEWABLE TABLETS PO SCH (09:44)
[2017-04-13] MEDS: ACETAMINOPHEN 325 MG TABLET (FP) PO SCH ×4 (09:44→21:39)
[2017-04-13] MEDS: LIDOCAINE 5% TOPICAL PATCH TP SCH ×2 (09:44→14:44)
[2017-04-13] MEDS: LISINOPRIL 20 MG TABLET (FP) PO SCH (09:45)
--- NOTE | 2017-04-13 10:58 | PN ---
Physical Exam: SUBJECTIVE: Patient seen and examined. Did not have a good night, was in alot of pain. Left shoulder pain improved with lidoderm patch, but now right shoulder hurts Left knee swollen, painful. No falls or trauma overnight. Patient informed me that she takes allopurinol at home,but does not take it daily. 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 Mary Oliveros April 15 @ 1pm. Waiting for physical therapy to come see patient prior to discharge. Vital Signs Period Temp Pulse Resp BP Sys/Wilder Pulse Ox Last 24 Hr 98 F-100.0 F 80-98 18-20 119-140/72-82 97-97 GENERAL: The patient is awake, alert, and fully oriented, facial grimacing, uncomfortable secondary to pain HEAD: Normal with no signs of trauma. EYES: PERRL, extraocular movements intact, sclera anicteric, conjunctiva clear. No ptosis. ENT: Ears normal, nares patent, oropharynx clear without exudates, moist mucous membranes. NECK: Trachea midline, full range of motion, supple. LUNGS: Breath sounds equal, clear to auscultation bilaterally, no wheezes, no crackles, no accessory muscle use. HEART: Regular rate and rhythm, ABDOMEN: Soft, nontender, nondistended, normoactive bowel sounds, no guarding, no rebound, no hepatosplenomegaly, no masses. EXTREMITIES: left upper arm, limited ROM but improving, painful/tender to touch on left shoulder, Right shoulder pain, left knee swelling, hot to touch NEUROLOGICAL: Normal speech, gait not observed. PSYCH: Normal mood, normal affect. Laboratory Results - last 24 hr 04/11/17 04/13/17 04/13/17 14:16 06:30 06:30 WBC 8.2 RBC 3.91 Hgb 13.6 Hct 39.4 MCV 100.6 H MCH 34.8 H MCHC 34.6 RDW 13.4 Plt Count 245 MPV 7.5 Sodium 138 Potassium 4.1 Chloride 100 Carbon Dioxide 28 Anion Gap 10 BUN 13 Creatinine 0.6 Creat Clearance w eGFR > 60 Random Glucose 113 H Calcium 9.7 Magnesium 2.1 Total Bilirubin 0.8 D AST 11 L ALT 10 L Alkaline Phosphatase 146 H Total Protein 7.1 Albumin 3.3 L Hep Bs Antigen Negative Active Medications Generic Name Dose Route Start Last Admin Trade Name Freq PRN Reason Stop Dose Admin Acetaminophen 650 mg 04/12/17 22:00 04/13/17 09:44 Tylenol - PO 650 mg QID BRYCE Administration Aspirin 81 mg 04/12/17 10:00 04/13/17 09:44 Asa - PO 81 mg DAILY BRYCE Administration Atorvastatin Calcium 20 mg 04/11/17 22:00 04/12/17 21:18 Lipitor - PO 20 mg HS BRYCE Administration Diltiazem HCl 240 mg 04/12/17 10:00 04/13/17 09:44 Cardizem Cd - PO 240 mg DAILY BRYCE Administration Lidocaine 1 patch 04/12/17 15:45 04/13/17 09:44 Lidoderm Patch - TP 1 patch DAILY BRYCE Administration Lisinopril 40 mg 04/12/17 10:00 04/13/17 09:45 Prinivil PO 40 mg DAILY BRYCE Administration Metoprolol Succinate 25 mg 04/12/17 12:00 04/13/17 09:44 Toprol Xl - PO 25 mg BID BRYCE Administration Miscellaneous 1 each 04/12/17 22:00 04/12/17 21:21 Lidoderm Patch Removal MC 1 each DAILY@2200 BRYCE Administration Rivaroxaban 20 mg 04/12/17 17:30 04/12/17 18:29 Xarelto - PO 20 mg DAILY@1730 BRYCE Administration Zolpidem Tartrate 5 mg 04/11/17 22:23 04/12/17 21:18 Ambien - PO 5 mg HS PRN Administration INSOMNIA ASSESSMENT/PLAN: Patient is a 76 year old female with a significant past medical history of atrial fibrillation, CAD, hypertension and hyperlipidemia. She presents to the ED with c/o left shoulder pain that radiates to her upper back into her right shoulder. She also presents with shortness of breath x 2 days. Patient describes the left shoulder pain as tender to touch 10/10 pain that limits her ability to move her left arm. She denies trauma of this arm, denies falls. She denies dizziness, chest pain or palpitations. On exam the left shoulder pain worsens with movement, there is a tender spot above the shoulder that is very tender to touch. She denies any shortness of breath, no chest pain. Imaging: Chest CTA: normal appearing thoracic and abd. aorta down through its bifurcation without evidence of aneurysmal dilatation aortic dissection. No PE. Small to moderate cardio effusion. Muscular: Left should pain and right shoulder, improving/resolving with Lidoderm patches No reported injury/trauma, Shoulder xray pending CTA negative for PE Ortho consulted but patient can also follow up outpatient Left knee swelling/hot, tender to touch Likely gout flare Given Allopurinol and Prednisone 40mg daily (continue this daily until seen by Dr. Randall Oliveros) Discussed with patient's primary care physician Dr.Cruz Oliveros Patient having difficulty ambulating 2/2 to left knee gout flare, can be discharged once PT evaluates Outpatient follow up with Dr. Randall Oliveros on , appt made for 1pm 04/15 Cardiology: Atrial Fib, controlled hypertension, controlled Had episodes of rapid afib, now on metoprolol 25mg bid On Cardizem 240mg, On Xarelto Shortness of breath, resolved Troponins negative x 3 Tolerating room air ruled out for [place] per cardiology CAD On ASA, Statin, Xarelto, Lisinopril 40mg daily HLD, chronic On Lipitor F.E.N. Fluids: tolerating PO Electrolytes: hypomag repleted Nutrition: low sodium diet Prophylaxis: DVT: on Xarelso GI: deferred Disposition: full code. Physical therapy prior to discharge to assess ambulatory status and safety. Visit type - Emergency Visit Emergency Visit: Yes ED Registration Date: 04/11/17 Care time: The patient presented to the Emergency Department on the above date and was hospitalized for further evaluation of their emergent condition. - New Patient This patient is new to me today: No - Critical Care Critical Care patient: No - Discharge Referral Referred to [facility] No
[2017-04-13] MEDS ORDERED: ALLOPURINOL 100 MG TABLET (FP) PO ONE ×2 (11:06→15:00)
--- NOTE | 2017-04-13 13:20 | PN ---
Progress Note (short form) - Note Progress Note: Chief Complaint: L neck/arm pain History of Present Illness: MSK pain on left flank, shoulder, arm is still severe. Exacerbated by inhalation --> unable to take a deep breath. had echo yesterday - reviewed. Added toprol 25 bid yesterday and rate control significantly improved today. no palps, sob, dizziness. cards dr viera for cardio (penny) Current Medications Acetaminophen (Tylenol -) 650 mg PO QID [facility] Last Admin: 04/13/17 09:44 Dose: 650 mg Aspirin (Asa -) 81 mg PO DAILY [facility] Last Admin: 04/13/17 09:44 Dose: 81 mg Atorvastatin Calcium (Lipitor -) 20 mg PO HS [facility] Last Admin: 04/12/17 21:18 Dose: 20 mg Diltiazem HCl (Cardizem Cd -) 240 mg PO DAILY [facility] Last Admin: 04/13/17 09:44 Dose: 240 mg Lidocaine (Lidoderm Patch -) 3 patch TP DAILY [facility] Lisinopril (Prinivil) 40 mg PO DAILY [facility] Last Admin: 04/13/17 09:45 Dose: 40 mg Metoprolol Succinate (Toprol Xl -) 25 mg PO BID [facility] Last Admin: 04/13/17 09:44 Dose: 25 mg Miscellaneous (Lidoderm Patch Removal) 1 each MC DAILY@2200 [facility] Prednisone (Deltasone -) 40 mg PO ONCE ONE Stop: 04/13/17 12:50 Rivaroxaban (Xarelto -) 20 mg PO DAILY@1730 [facility] Last Admin: 04/12/17 18:29 Dose: 20 mg Zolpidem Tartrate (Ambien -) 5 mg PO PRN PRN Reason: INSOMNIA Last Admin: 04/12/17 21:18 Dose: 5 mg Vital Signs - 24 hr 04/12/17 04/12/17 04/13/17 18:00 21:00 02:00 Temperature 100.0 F H 99.1 F 98.8 F Pulse Rate 98 H 87 80 Respiratory 20 18 18 Rate Blood Pressure 130/82 140/76 120/77 O2 Sat by Pulse 97 Oximetry (%) 04/13/17 04/13/17 06:00 07:47 Temperature 98 F 98 F Pulse Rate 89 84 Respiratory 18 18 Rate Blood Pressure 119/72 128/78 O2 Sat by Pulse 97 Oximetry (%) Intake & Output 04/11/17 04/12/17 04/13/17 04/14/17 07:59 07:59 07:59 07:59 Intake Total 600 Output Total 100 Balance -100 600 Weight 173 lb 9.6 oz Constitutional: Yes: Well Nourished, No Distress Eyes: No: Sclera Icterus HENT: No: Nasal Congestion Neck: No: Decreased ROM Respiratory: Yes: CTA Bilaterally. poor effort due to discomfort. No: Accessory Muscle Use, Rales, Wheezes Gastrointestinal: Yes: Normal Bowel Sounds. No: Distention, Hepatomegaly, Palpable Mass, Tenderness Cardiovascular: Yes: Pulse Irregular JVD: No Carotid Bruit: No PMI: Non-Displaced Heart Sounds: Yes: S1, S2. No: Gallop Murmur: No: Systolic Murmur, Diastolic Murmur Musculoskeletal: Yes: Other (No kyphosis) Extremities: No: Cold, Cyanosis Edema: No Peripheral Pulses: 2+ Left Carotid, 2+ Right Carotid, 2+ Left Doralis Pedis, 2+ Right Dorsalis Pedis Integumentary: No: Jaundice Neurological: Yes: Alert, Oriented (x3) Psychiatric: No: Agitated - Other Data Labs, Other Data: CBC, BMP 04/13/17 06:30 04/13/17 06:30 Laboratory Tests 04/13/17 06:30 Magnesium 2.1 Total Bilirubin 0.8 D AST 11 L ALT 10 L Alkaline Phosphatase 146 H Albumin 3.3 L tele: rate controlled afib echo 04/2017: nl lv/rv size/fn + LAE. mod mac. 1+ mr. mild phtn. mild ao dilation. small pericardial effusion EKG 04/11: afib, HR 105. ? LVH with repol abn (nonsp ST-Ts). no path q's (no old ekg) #2: no change Assessment/Plan 76 yo smoker with h/o afib, cad, htn, hl, RA, OA, gout presents with severe pain in L neck pain radiating to the back, worsening with movement of the L arm with associated palps. L neck/arm pain: -sx's clearly mskel/arthritic (in patient with known h/o RA, OA, gout), mainly occurs with movement including inspiration -no isch ECG findings, trop neg x 3. -per hospitalist afib: -h/o afib, no recent sx's (palpitations) until few days prior to admission -rapid HRs here--suspect atypical sob at rest at home is related to rapid afib ( no signs chf here) -cont home cardizem 240 qd. added low dose metoprolol 04/12 --> now rate controlled. . -will defer to outpt f/u with cardio (dr viera) regarding ? 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
[2017-04-13] MEDS: predniSONE 20 MG TABLET (UD) PO ONE ×2 (13:40→14:43)
--- NOTE | 2017-04-13 17:16 | PN ---
Progress Note (short form) - Note Progress Note: Pt seen and examined. She is a 76 yo Female pt with about 5 days of severe pain in the left side of the neck, going up the cervical muscles to the left posterior base of the skull. That pain has largely resolved. She still has pain in the left shoulder with motion. She has no pain in the shoulder when she is still. PE Cervical spine has good ROM throughout, only very mild stiffness. Left shoulder is not swollen, no erythema, no effusion, no signs of infection. + pain with any motion Looks like acute bursitis. Xrays Left shoulder - are normal. No acute or chronic christian pathology. Imp Left shoulder acute bursitis. Rec She is on Xeralto, so she cannot take NSAIDS. I recommend a cortisone injection into the left shoulder if cleared by PMD and cardiology. Can also be done as an out pt.
[2017-04-13] MEDS: RIVAROXABAN 20 MG TABLET PO SCH (17:50)
[2017-04-13] MEDS: ZOLPIDEM TARTRATE 5 MG TABLET PO PRN (21:42)
[2017-04-13] MEDS: ATORVASTATIN CA 20 MG TABLET (FP) PO SCH (21:42)
[2017-04-13] MEDS ORDERED: LIDOCAINE PATCH REMOVAL MC SCH ×2 (22:00)
--- NOTE | 2017-04-13 22:18 | DS ---
Physical Exam: SUBJECTIVE: Patient seen and examined OBJECTIVE: Vital Signs Period Temp Pulse Resp BP Sys/Wilder Pulse Ox Last 24 Hr 97.5 F-98.9 F 78-89 18-18 119-128/69-78 97 PHYSICAL EXAM GENERAL: The patient is awake, alert, and fully oriented, in no acute distress. HEAD: Normal with no signs of trauma. EYES: PERRL, extraocular movements intact, sclera anicteric, conjunctiva clear. ENT: Ears normal, nares patent, oropharynx clear without exudates, moist mucous membranes. NECK: Trachea midline, full range of motion, supple. LUNGS: Breath sounds equal, clear to auscultation bilaterally, no wheezes, no crackles, no accessory muscle use. HEART: Regular rate and rhythm, S1, S2 without murmur, rub or gallop. ABDOMEN: Soft, nontender, nondistended, normoactive bowel sounds, no guarding, no rebound, no hepatosplenomegaly, no masses. EXTREMITIES: 2+ pulses, warm, well-perfused, no edema. NEUROLOGICAL: Cranial nerves II through XII grossly intact. Normal speech, gait not observed. PSYCH: Normal mood, normal affect. SKIN: Warm, dry, normal turgor, no rashes or lesions noted. LABS Laboratory Results - last 24 hr 04/13/17 04/13/17 06:30 06:30 WBC 8.2 RBC 3.91 Hgb 13.6 Hct 39.4 MCV 100.6 H MCH 34.8 H MCHC 34.6 RDW 13.4 Plt Count 245 MPV 7.5 Sodium 138 Potassium 4.1 Chloride 100 Carbon Dioxide 28 Anion Gap 10 BUN 13 Creatinine 0.6 Creat Clearance w eGFR > 60 Random Glucose 113 H Calcium 9.7 Magnesium 2.1 Total Bilirubin 0.8 D AST 11 L ALT 10 L Alkaline Phosphatase 146 H Total Protein 7.1 Albumin 3.3 L HOSPITAL COURSE: Date of Admission:04/11/17 Date of Discharge: 04/13/17 Discharge Summary Reason For Visit: PERICARDIAL EFFUSION Current Active Problems Pericardial effusion (Acute) Condition: Improved - Instructions Diet, Activity, Other Instructions: Mrs. Winters Please return to the ER with any new or worsening symptoms. You have an appointment with your primary care doctor, Dr. Fajardo on 04/15/2017 , @ 1pm. Please follow up with Dr. Yanez, next week as discussed. New Medications: Allopurinol 100mg daily (for gout flare) Prednisone 40mg daily (until you see your primary care doctor on , She may taper you off this steriod as your gout resolves). Metoprolol 25mg twice day (helps control your heart rate) Thank you for allowing us to care for you. In addition, we recommend that you follow up with Dr. Hernandez (orthopedic) for your shoulder pain. A brick offbearer referral is included in your discharge packet. [facility] [phone] Referrals: Mary Morejon MD [Staff Physician] - (April 15 1pm) Luis Antonio Tracey MD [Staff Physician] - 1 Week Garrison Hernandez MD [Staff Physician] - 1 Week Disposition: HOME - Home Medications Comprehensive Discharge Medication List: Ambulatory Orders Aspirin 81 mg PO DAILY 04/11/17 Atorvastatin Ca [Lipitor] 20 mg PO HS 04/11/17 Diltiazem Cd [Cardizem Cd -] 240 mg PO DAILY 04/11/17 Lisinopril [Prinivil -] 40 mg PO DAILY 04/11/17 Rivaroxaban [Xarelto -] 20 mg PO DAILY 04/11/17 Zolpidem Tartrate [Ambien] 10 mg PO HS 04/11/17 Allopurinol [Zyloprim -] 100 mg PO DAILY #30 tablet 04/13/17 Diltiazem Cd [Cardizem Cd -] 240 mg PO DAILY #0 cap.cd.24h 04/13/17 Lidocaine 5% Patch [Lidoderm -] 3 patch TP DAILY #10 patch 04/13/17 Metoprolol Succinate [Toprol XL -] 25 mg PO BID #60 tab.sr.24h 04/13/17 Prednisone [Deltasone] 40 mg PO DAILY #10 tablet 04/13/17 - Discharge Referral Referred to [facility] No
[2017-04-14 06:01] VITALS: TEMP 98.3
[2017-04-14 09:05] VITALS: BP 115/66; PULSE 81
[2017-04-14] MEDS: ACETAMINOPHEN 325 MG TABLET (FP) PO SCH (09:24)
[2017-04-14] MEDS: LISINOPRIL 20 MG TABLET (FP) PO SCH (09:25)
[2017-04-14] MEDS: LIDOCAINE 5% TOPICAL PATCH TP SCH (09:25)
[2017-04-14] MEDS: metoPROLOL SUCCINATE 25 MG TAB.SR.24H (FP) PO SCH (09:25)
[2017-04-14] MEDS: ASPIRIN 81 MG CHEWABLE TABLETS PO SCH (09:25)
[2017-04-14] MEDS ORDERED: predniSONE 20 MG TABLET (UD) PO SCH (10:00)
[2017-04-14] MEDS ORDERED: ALLOPURINOL 100 MG TABLET (FP) PO SCH (10:00)
--- NOTE | 2017-04-14 10:15 | HOSP ---
Physical Examination Vital Signs: Vital Signs Temperature 98.3 F 04/14/17 06:00 Pulse Rate 81 04/14/17 09:05 Respiratory Rate 20 04/14/17 09:05 Blood Pressure 115/66 04/14/17 09:05 O2 Sat by Pulse Oximetry (%) 98 04/14/17 09:00 Findings/Remarks: PE Neuro: alert, awake, cn 2-12intact Pulm: diminished, cler R>L - tenderness with deep inspiration CV: s1 s2 irregular rhythm regular rate Abd: s nt nd + bs Ext: L knee lateral tenderness to palpation, swelling, no erythema Labs: CBC, BMP 04/13/17 06:30 04/13/17 06:30 Hospitalist Encounter Assessment: Patient seen and examined. She is able to ambulate with PT. L knee tenderness and swelling however tolerable with lidocaine patches Will DC home with prednisone 20mg x3 more days for acute gout and lidocaine patches Pt and son aware and agree to above plan
--- NOTE | 2017-04-14 10:28 | PN ---
Progress Note (short form) - Note Progress Note: Chief Complaint: L neck/arm pain History of Present Illness: MSK pain on left flank, shoulder, arm is better. Exacerbated by inhalation. no palps, sob, dizziness. cards dr viera for cardio ([place]) Current Medications Generic Name Dose Route Start Last Admin Trade Name Freq PRN Reason Stop Dose Admin Acetaminophen 650 mg 04/12/17 22:00 04/14/17 09:24 Tylenol - PO 650 mg QID BRYCE Administration Allopurinol 100 mg 04/14/17 10:00 04/14/17 09:25 Zyloprim - PO 100 mg DAILY BRYCE Administration Aspirin 81 mg 04/12/17 10:00 04/14/17 09:25 Asa - PO 81 mg DAILY BRYCE Administration Atorvastatin Calcium 20 mg 04/11/17 22:00 04/13/17 21:42 Lipitor - PO 20 mg HS BRYCE Administration Diltiazem HCl 240 mg 04/12/17 10:00 04/14/17 09:25 Cardizem Cd - PO 240 mg DAILY BRYCE Administration Lidocaine 3 patch 04/13/17 11:15 04/14/17 09:25 Lidoderm Patch - TP 3 patch DAILY BRYCE Administration Lisinopril 40 mg 04/12/17 10:00 04/14/17 09:25 Prinivil PO 40 mg DAILY BRYCE Administration Metoprolol Succinate 25 mg 04/12/17 12:00 04/14/17 09:25 Toprol Xl - PO 25 mg BID BRYCE Administration Miscellaneous 1 each 04/13/17 22:00 04/13/17 21:40 Lidoderm Patch Removal MC 1 each DAILY@2200 BRYCE Administration Prednisone 40 mg 04/14/17 10:00 04/14/17 09:25 Deltasone - PO 40 mg DAILY BRYCE Administration Rivaroxaban 20 mg 04/12/17 17:30 04/13/17 17:50 Xarelto - PO 20 mg DAILY@1730 BRYCE Administration Zolpidem Tartrate 5 mg 04/11/17 22:23 04/13/17 21:42 Ambien - PO 5 mg HS PRN Administration INSOMNIA Vital Signs Period Temp Pulse Resp BP Sys/Wilder Pulse Ox Last 24 Hr 97.5 F-99.2 F 75-89 18-20 115-135/65-78 98-98 Constitutional: Yes: Well Nourished, No Distress Eyes: No: Sclera Icterus HENT: No: Nasal Congestion Neck: No: Decreased ROM Respiratory: Yes: CTA Bilaterally. poor effort due to discomfort. No: Accessory Muscle Use, Rales, Wheezes Gastrointestinal: Yes: Normal Bowel Sounds. No: Distention, Hepatomegaly, Palpable Mass, Tenderness Cardiovascular: Yes: Pulse Irregular JVD: No Heart Sounds: Yes: S1, S2. No: Gallop Murmur: No: Systolic Murmur, Diastolic Murmur Extremities: No: Cold, Cyanosis Edema: No Integumentary: No: Jaundice Neurological: Yes: Alert, Oriented (x3) Psychiatric: No: Agitated - Other Data Labs, Other Data: CBC, BMP 04/13/17 06:30 04/13/17 06:30 tele: rate controlled afib echo 04/2017: nl lv/rv size/fn + LAE. mod mac. 1+ mr. mild phtn. mild ao dilation. small pericardial effusion EKG 04/11: afib, HR 105. ? LVH with repol abn (nonsp ST-Ts). no path q's (no old ekg) #2: no change Assessment/Plan 76 yo smoker with h/o afib, cad, htn, hl, RA, OA, gout presents with severe pain in L neck pain radiating to the back, worsening with movement of the L arm with associated palps. L neck/arm pain: -sx's clearly mskel/arthritic (in patient with known h/o RA, OA, gout), mainly occurs with movement including inspiration -no isch ECG findings, trop neg x 3. -per hospitalist afib: -h/o afib, no recent sx's (palpitations) until few days prior to admission -rapid HRs here--suspect atypical sob at rest at home is related to rapid afib ( no signs chf here) -cont home cardizem 240 qd. added low dose metoprolol 3/ --> now rate controlled. . -will defer to outpt f/u with cardio (dr viera) regarding ? 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
== END 2017-04-14 10:49 | disposition home or self-care (01) | DRG 558 ==
LOC: JER 11:36 → JERBED 19:21 → J4W 20:54
PROVIDERS: ADMIT Internal Medicine; ATTEND Nurse Practitioner Acute Care
DX: M75.52 Bursitis of left shoulder (principal); I31.3 Pericardial effusion (noninflammatory); J90 Pleural effusion, not elsewhere classified; I48.91 Unspecified atrial fibrillation; I25.10 Atherosclerotic heart disease of native coronary artery without angina pectoris; I10 Essential (primary) hypertension; M10.9 Gout, unspecified; E78.5 Hyperlipidemia, unspecified
CPT/HCPCS: 36415; 71046-TC-FY; 71275-TC; 73030-TC-LT-FY; 74175-TC; 80048; 80053; 80061; 81003; 81015; 82550; 83036; 83721; 83735; 84100; 84484; 85025; 85027; 85610; 85730; 86850; 86900; 86901; 87040; 87340; 87389; 93005; 93010; 93306-TC; 97116-GP; 97161-GP; 99284-25

== ENCOUNTER 2017-09-13 10:15 | Inpatient (IN) | payer OTHER ==
[2017-09-13 10:25] VITALS: BMI 29.9
[2017-09-13] MEDS ORDERED: SODIUM CHLORIDE 1,000 ML IV STA ×2 (10:57→13:48)
--- NOTE | 2017-09-13 11:19 | PDOC ---
History of Present Illness - General Chief Complaint: Weakness Stated Complaint: VAGINAL BLEEDING, VOMITING Time Seen by Provider: 09/13/17 10:55 History Source: Patient Exam Limitations: No Limitations - History of Present Illness Initial Comments: 09/13/17 12:55 Patient is a 77-year-old female with past medical history of A. fib on the rolled toe, hypertension, hyperlipidemia, who presents to the emergency department today with 3 days of hematuria, right flank pain, right abdominal discomfort. Patient states that she has also felt nauseous and has been unable to eat or drink during this time. She states that she feels lightheaded. Denies fevers, chills, shortness of breath, difficulty breathing, chest pain, diarrhea , constipation and vomiting. Past History - Travel Traveled outside of the country in the last 30 days: No Close contact w/someone who was outside of country & ill: No - Past Medical History Allergies/Adverse Reactions: Allergies Allergy/AdvReac Type Severity Reaction Status Date / Time No Known Allergies Allergy Verified 09/13/17 10:19 Home Medications: Ambulatory Orders Aspirin 81 mg PO DAILY 04/11/17 Atorvastatin Ca [Lipitor] 20 mg PO HS 04/11/17 Lisinopril [Prinivil -] 40 mg PO DAILY 04/11/17 Rivaroxaban [Xarelto -] 20 mg PO DAILY 04/11/17 Allopurinol [Zyloprim -] 100 mg PO DAILY #30 tablet 04/13/17 Diltiazem Cd [Cardizem Cd -] 240 mg PO DAILY #0 cap.cd.24h 04/13/17 Cardiac Disorders: Yes (afib) CVA: No COPD: No HTN: Yes Hypercholesterolemia: Yes Kidney Stones: Yes - Surgical History Cardiac Surgery: Yes (card stent) - Suicide/Smoking/Psychosocial Hx Smoking History: Current some day smoker Have you smoked in the past 12 months: Yes Number of Cigarettes Smoked Daily: 3 Information on smoking cessation initiated: No 'Breaking Loose' booklet given: 04/11/17 Hx Alcohol Use: No Drug/Substance Use Hx: No Substance Use Type: None Hx Substance Use Treatment: No Review of Systems - Review of Systems Able to Perform ROS?: Yes Comments:: 09/13/17 11:47 CONSTITUTIONAL: Present: fatigue Absent: fever, chills, diaphoresis, generalized weakness, malaise, loss of appetite HEENT: Absent: rhinorrhea, nasal congestion, throat pain, throat swelling, difficulty swallowing, mouth swelling, ear pain, eye pain, visual Changes CARDIOVASCULAR: Absent: chest pain, loss of consciousness, palpitations, irregular heart rate, peripheral edema RESPIRATORY: Absent: cough, shortness of breath, dyspnea with exertion, orthopnea, wheezing, stridor, hemoptysis GASTROINTESTINAL: Present: nausea Absent: abdominal pain, abdominal distension, vomiting, diarrhea, constipation, melena, hematochezia GENITOURINARY: Present: hematuria vs vaginal bleeding Absent: dysuria, frequency, urgency, hesitancy, flank pain, genital pain MUSCULOSKELETAL: Absent: myalgia, arthralgia, joint swelling SKIN: Absent: rash, itching, pallor HEMATOLOGIC/IMMUNOLOGIC: Absent: easy bleeding, easy bruising, lymphadenopathy, frequent infections ENDOCRINE: Absent: unexplained weight gain, unexplained weight loss, heat intolerance, cold intolerance NEUROLOGIC: Absent: headache, focal weakness or paresthesias, dizziness, unsteady gait, seizure, mental status changes, bladder or bowel incontinence PSYCHIATRIC: Absent: anxiety, depression, suicidal or homicidal ideation, hallucinations. Is the patient limited Vietnamese proficient: No *Physical Exam - Vital Signs Last Vital Signs Temp Pulse Resp BP Pulse Ox 98.4 F 95 H 20 103/55 96 09/13/17 10:19 09/13/17 10:19 09/13/17 10:19 09/13/17 10:19 09/13/17 10:19 - Physical Exam Comments: 09/13/17 11:52 GENERAL: Well developed, well nourished. Awake and alert. No acute distress. HEENT: Normocephalic, atraumatic. PERRLA, EOMI. No conjunctival pallor. Sclera are non- icteric. Moist mucous membranes. Oropharynx is clear. NECK: Supple. Full ROM. No JVD. Carotid pulses 2+ and symmetric, without bruits. No thyromegaly. No lymphadenopathy. CARDIOVASCULAR: Regular rate and rhythm. No murmurs, rubs, or gallops. Distal pulses are 2+ and symmetric. PULMONARY: No evidence of respiratory distress. Lungs clear to auscultation bilaterally. No wheezing, rales or rhonchi. ABDOMINAL: RLQ, RUQ , eipgastric discomfort. Soft. Non-tender. Non-distended. No rebound or guarding. No organomegaly. Normoactive bowel sounds. MUSCULOSKELETAL (+) R sided CVA tenderness. Normal range of motion at all joints. No bony deformities or tenderness. Exam: Bimanual exam: no blood noted on glove. No CMT, adenexal tenderness. Rectal exam : good rectal tone. Multiple external hemorrhoids surrounding the entire rectum. No internal hemorrhoids palpated. EXTREMITIES: No cyanosis. No clubbing. No edema. No calf tenderness. SKIN: Warm and dry. Normal capillary refill. No rashes. No jaundice. NEUROLOGICAL: Alert, awake, appropriate. Cranial nerves 2-12 intact. No deficits to light touch and temperature in face, upper extremities and lower extremities. No motor deficits in the in face, upper extremities and lower extremities. Normoreflexic in the upper and lower extremities. Normal speech. Toes are down- going bilaterally. Gait is normal without ataxia. PSYCHIATRIC: Cooperative. Good eye contact. Appropriate mood and affect. ED Treatment Course - LABORATORY CBC & Chemistry Diagram: 09/13/17 11:00 09/13/17 11:03 - RADIOLOGY Radiology Studies Ordered: Category Date Time Status CHEST X-RAY PORTABLE* [RAD] Stat Radiology 09/13/17 10:56 Ordered Medical Decision Making - Medical Decision Making 09/13/17 12:55 Patient is a 77-year-old female with past medical history of A. fib on Xarelto, hypertension, hyperlipidemia, who presents emergency department today with 3 days of flank pain, nausea and hematuria. On exam patient with discomfort to the right lower and right upper quadrants. Positive CVA tenderness on the right. Vaginal exam is negative for blood. I suspect the patient has Pedro versus UTI versus stones at this time. 1.labs, urine, urine culture, blood culture 2.IV fluids, pain control 3.CT AP, 4.EKG 5.reevaluate 09/13/17 16:21 Lab work is notable for positive urine. Patient also with BERNIE at this time. Creatinine bump to 1.2 from 0.5. Lactic acid also elevated at 2.1 --> 2.2 in the ED despite fluids. Troponin is 0.06. I suspect that this is demand ischemia due to the elevated creatinine. Stool for occult blood negative. Patient still pending CT scan. CT scan shows no evidence of hydronephrosis, ureteral stones, or other acute pathology. Given findings patient with clinical pyelonephritis. Dose of Rocephin given in the emergency department. Patient to be admitted to the hospitalist. 09/13/17 16:[address] Quispe, who agrees with admission at this time. Given elevated troponin we'll place patient to telemetry. Repeat troponin ordered. EKG rate 88 bpm, patient A. fib at this time with occasional PVCs. Inverted T waves in lead 1, aVL. Abnormal EKG however unchanged for patient. *DC/Admit/Observation/Transfer Diagnosis at time of Disposition: BERNIE (acute kidney injury), Pyelonephritis - Discharge Dispostion Condition at time of disposition: Stable Decision to Admit order: Yes - Referrals Referrals: Mary Morejon MD [Primary Care Provider] - - Patient Instructions - Post Discharge Activity
--- NOTE | 2017-09-13 11:22 | PDOC ---
*Physical Exam - Vital Signs Last Vital Signs Temp Pulse Resp BP Pulse Ox 98.4 F 95 H 20 103/55 96 09/13/17 10:19 09/13/17 10:19 09/13/17 10:19 09/13/17 10:19 09/13/17 10:19 ED Treatment Course - LABORATORY CBC & Chemistry Diagram: 09/16/17 05:30 09/14/17 06:30 - ADDITIONAL ORDERS Additional order review: Laboratory Results 09/13/17 11:00 Sodium Cancelled Potassium Cancelled Chloride Cancelled Carbon Dioxide Cancelled Anion Gap Cancelled BUN Cancelled Creatinine Cancelled Creat Clearance w eGFR Cancelled Random Glucose Cancelled Calcium Cancelled Total Bilirubin Cancelled AST Cancelled ALT Cancelled Alkaline Phosphatase Cancelled Total Protein Cancelled Albumin Cancelled Medical Decision Making - Medical Decision Making 09/13/17 11:22 Case discussed with BLANE Gaston. Plan as per BLANE Gaston *DC/Admit/Observation/Transfer Diagnosis at time of Disposition: BERNIE (acute kidney injury), Pyelonephritis - Discharge Dispostion Condition at time of disposition: Stable - Referrals - Patient Instructions - Post Discharge Activity
[2017-09-13 11:24] LABS: BASO % 0.2 % (0-2.0); HEMATOCRIT 39.4 % (32.4-45.2); HEMOGLOBIN 13.7 GM/dL (10.7-15.3); LYMPH % 4.4 % (8-40); MCH 35.5 pg (25.7-33.7); MCHC 34.8 g/dl (32.0-36.0); MEAN PLT VOLUME 8.2 fl (7.5-11.1); NEUT % 69.4 % (42.8-82.8); PLATELET COUNT 109 K/MM3 (134-434); RBC 3.87 M/mm3 (3.60-5.2); RDW 13.9 % (11.6-15.6); WHITE BLOOD COUNT 10.6 K/mm3 (4.0-10.0)
[2017-09-13 11:44] LABS: ALBUMIN 3.2 g/dl (3.4-5.0); ANION GAP 9 (8-16); BILIRUBIN,TOTAL 0.6 mg/dL (0.2-1.0); BLOOD UREA NITROGEN 27 mg/dL (7-18); CALCIUM 9.1 mg/dL (8.5-10.1); CHLORIDE 103 mmol/L (98-107); CO2 27 mmol/L (21-32); CREATININE 1.2 mg/dL (0.55-1.02); GLUCOSE,RANDOM 149 mg/dL (74-106); POTASSIUM 3.3 mmol/L (3.5-5.1); SGOT/AST 20 U/L (15-37); SGPT/ALT 18 U/L (12-78); SODIUM 139 mmol/L (136-145); TOT PROT 6.6 g/dl (6.4-8.2)
[2017-09-13 11:47] LABS: ALK PHOS 104 U/L (45-117)
[2017-09-13 12:02] LABS: INR 1.36 (0.83-1.09); PROTHROMBIN TIME (PATIENT) 15.4 SEC (9.7-13.0)
[2017-09-13 12:25] LABS: URINE APPEARANCE CLOUDY; URINE BILIRUBIN NEGATIVE (<2.0 mg/dL); URINE COLOR AMBER; URINE GLUCOSE (UA) NEGATIVE (NEGATIVE); URINE KETONE NEGATIVE (NEGATIVE); URINE NITRITE NEGATIVE (NEGATIVE)
[2017-09-13 12:38] LABS: URINE LEUK ESTERASE 2+ (NEGATIVE); URINE PROTEIN 3+ (NEGATIVE)
[2017-09-13 12:47] LABS: EPI CELLS FEW /HPF (FEW); URINE HYALINE CAST 7 /lpf; URINE MUCUS RARE
[2017-09-13 14:19] LABS: ANISOCYTOSIS 0; MACROCYTOSIS 1+; PLATELET ESTIMATE DECREASED
[2017-09-13] MEDS ORDERED: ACETAMINOPHEN 1000 MG/100 ML VIAL (NON FORMULARY) IVPB ONE (14:32)
[2017-09-13] MEDS ORDERED: ACETAMINOPHEN INJECTION 100 ML IVPB ONE (15:14)
[2017-09-13] MEDS ORDERED: CEFTRIAXONE 1,000 MG in DEXTROSE 5%-WATER - 50 ML IVPB ONE (15:57)
[2017-09-13] MEDS ORDERED: morphine CARPU-JECT 4 MG/1 ML DISP.SYRIN IVPUSH ONE (15:57)
[2017-09-13] MEDS ORDERED: ONDANSETRON 4 MG/2 ML VIAL IVPUSH ONE (16:00)
[2017-09-13] MEDS ORDERED: ONDANSETRON 4 MG/2 ML VIAL ONE (17:47)
[2017-09-13] MEDS ORDERED: MORPHINE SULFATE 2 MG/ML VIAL ONE (17:47)
[2017-09-13] MEDS ORDERED: CEFTRIAXONE 1 GM/50 ML BAG ONE (17:48)
--- NOTE | 2017-09-13 18:38 | PN ---
Teaching Attending Note Name of Resident: Niesha Loya ATTENDING PHYSICIAN STATEMENT I saw and evaluated the patient. I reviewed the resident's note and discussed the case with the resident. I agree with the resident's findings and plan as documented with exceptions below. SUBJECTIVE: 77 yof with PMhx of Afib on xarelto, CAD s/p RI/LCx PCI in 2009, CHF, (last Echo 2018 EF 50-55% with normal LV function), small pericardial effusion, obesity, nephrolithiais s/p stent years ago, comes with right flank pain constant, associated with nausea, chills, urinary frequency, weakness and minimal oral intake. She also reports non productive cough and some blood on her tissues yesterday. Denies any chest pain, palpitations, diaphoresis, jaw or arm pain or recent h/o exertional chest pain/dyspnea, orthopnea, PND, leg swelling or weight gain. 12 point ROS neg except above. Currently feels overall unchanged than prior. OBJECTIVE: Vital Signs Period Temp Pulse Resp BP Sys/Wilder Pulse Ox Last 24 Hr 98.4 F 90-95 18-20 103-116/55-70 96-96 Intake & Output 09/10/17 09/11/17 09/12/17 09/13/17 23:59 23:59 23:59 23:59 Weight 180 lb GENERAL: Awake, alert, and fully oriented, in no acute distress. HEAD: Normal with no signs of trauma. EYES: Pupils equal, round and reactive to light, extraocular movements intact, sclera anicteric, conjunctiva clear. No lid lag. EARS, NOSE, THROAT: Ears normal, nares patent, oropharynx clear without exudates. mildy dry mucous membrane NECK: soft, supple, no JVD visualized LUNGS: Breath sounds equal, clear to auscultation bilaterally. No wheezes, and no crackles. No accessory muscle use. HEART: S1S2 irregular ABDOMEN: Soft,tenderness RMQ/Right pradeep-umbilical area, not distended, normoactive bowel sounds, no guarding, no rebound, no masses. MUSCULOSKELETAL: Right CVA tenderness UPPER EXTREMITIES: 2+ pulses, warm, well-perfused. No cyanosis. No clubbing. No peripheral edema. LOWER EXTREMITIES: 2+ pulses, warm, well-perfused. No calf tenderness. No peripheral edema. NEUROLOGICAL: Cranial nerves II-XII intact. Normal speech. gait deferred, facial symmetry, tongue midline PSYCHIATRIC: Cooperative. Good eye contact. Appropriate mood and affect. SKIN: Warm, dry, mild decreased turgor, no rashes or lesions noted, normal capillary refill. Home Medications Medication Instructions Recorded Aspirin 81 mg PO DAILY 04/11/17 Atorvastatin Ca [Lipitor] 20 mg PO HS 04/11/17 Lisinopril [Prinivil -] 40 mg PO DAILY 04/11/17 Rivaroxaban [Xarelto -] 20 mg PO DAILY 04/11/17 Allopurinol [Zyloprim -] 100 mg PO DAILY #30 tablet 04/13/17 Diltiazem Cd [Cardizem Cd -] 240 mg PO DAILY #0 cap.cd.24h 04/13/17 Laboratory Results - last 24 hr 09/13/17 09/13/17 09/13/17 11:00 11:00 11:00 WBC 10.6 H RBC 3.87 Hgb 13.7 Hct 39.4 MCV 102.0 H MCH 35.5 H MCHC 34.8 RDW 13.9 Plt Count 109 L D MPV 8.2 Absolute Neuts (auto) 7.3 Neutrophils % 69.4 Neutrophils % (Manual) 71.0 Band Neutrophils % 2.1 Lymphocytes % 4.4 L D Lymphocytes % (Manual) 4.3 L D Monocytes % 26.0 H Monocytes % (Manual) 23 H Eosinophils % 0.0 D Eosinophils % (Manual) 0.0 Basophils % 0.2 Basophils % (Manual) 0.0 Myelocytes % (Man) 0 Promyelocytes % (Man) 0 Blast Cells % (Manual) 0 Nucleated RBC % 1 H Metamyelocytes 0 Hypochromia 0 Platelet Estimate Decreased Polychromasia 1+ Poikilocytosis 0 Anisocytosis 0 Microcytosis 0 Macrocytosis 1+ PT with INR 15.40 H INR 1.36 H Sodium Cancelled Potassium Cancelled Chloride Cancelled Carbon Dioxide Cancelled Anion Gap Cancelled BUN Cancelled Creatinine Cancelled Creat Clearance w eGFR Cancelled Random Glucose Cancelled Lactic Acid Calcium Cancelled Total Bilirubin Cancelled AST Cancelled ALT Cancelled Alkaline Phosphatase Cancelled Creatine Kinase Troponin I Total Protein Cancelled Albumin Cancelled Urine Color Urine Appearance Urine pH Ur Specific Stopover Urine Protein Urine Glucose (UA) Urine Ketones Urine Blood Urine Nitrite Urine Bilirubin Urine Urobilinogen Ur Leukocyte Esterase Urine WBC (Auto) Urine RBC (Auto) Ur Epithelial Cells Hyaline Casts Urine Mucus Stool Occult Blood 09/13/17 09/13/17 09/13/17 11:00 11:03 12:15 WBC RBC Hgb Hct MCV MCH MCHC RDW Plt Count MPV Absolute Neuts (auto) Neutrophils % Neutrophils % (Manual) Band Neutrophils % Lymphocytes % Lymphocytes % (Manual) Monocytes % Monocytes % (Manual) Eosinophils % Eosinophils % (Manual) Basophils % Basophils % (Manual) Myelocytes % (Man) Promyelocytes % (Man) Blast Cells % (Manual) Nucleated RBC % Metamyelocytes Hypochromia Platelet Estimate Polychromasia Poikilocytosis Anisocytosis Microcytosis Macrocytosis PT with INR INR Sodium 139 Potassium 3.3 L Chloride 103 Carbon Dioxide 27 Anion Gap 9 BUN 27 H Creatinine 1.2 H Creat Clearance w eGFR 43.68 Random Glucose 149 H Lactic Acid 2.1 H Calcium 9.1 Total Bilirubin 0.6 AST 20 ALT 18 Alkaline Phosphatase 104 Creatine Kinase 47 Troponin I 0.06 H Total Protein 6.6 Albumin 3.2 L Urine Color Becky Urine Appearance Cloudy Urine pH 5.0 Ur Specific Stopover 1.022 Urine Protein 3+ H Urine Glucose (UA) Negative Urine Ketones Negative Urine Blood 3+ H Urine Nitrite Negative Urine Bilirubin Negative Urine Urobilinogen 2.0 H Ur Leukocyte Esterase 2+ H Urine WBC (Auto) 1107 Urine RBC (Auto) 615 Ur Epithelial Cells Few Hyaline Casts 7 Urine Mucus Rare Stool Occult Blood 09/13/17 09/13/17 09/13/17 12:30 13:10 16:02 WBC RBC Hgb Hct MCV MCH MCHC RDW Plt Count MPV Absolute Neuts (auto) Neutrophils % Neutrophils % (Manual) Band Neutrophils % Lymphocytes % Lymphocytes % (Manual) Monocytes % Monocytes % (Manual) Eosinophils % Eosinophils % (Manual) Basophils % Basophils % (Manual) Myelocytes % (Man) Promyelocytes % (Man) Blast Cells % (Manual) Nucleated RBC % Metamyelocytes Hypochromia Platelet Estimate Polychromasia Poikilocytosis Anisocytosis Microcytosis Macrocytosis PT with INR INR Sodium Potassium Chloride Carbon Dioxide Anion Gap BUN Creatinine Creat Clearance w eGFR Random Glucose Lactic Acid 2.2 H* Calcium Total Bilirubin AST ALT Alkaline Phosphatase Creatine Kinase 71 Troponin I 0.03 Total Protein Albumin Urine Color Urine Appearance Urine pH Ur Specific Stopover Urine Protein Urine Glucose (UA) Urine Ketones Urine Blood Urine Nitrite Urine Bilirubin Urine Urobilinogen Ur Leukocyte Esterase Urine WBC (Auto) Urine RBC (Auto) Ur Epithelial Cells Hyaline Casts Urine Mucus Stool Occult Blood Negative CT A/P - Cardiomegaly with mild pericardial effusion, non obstructive uropathy, renal vascular calcification, right inguinal hernia EKG Afib with PVC, no acute ST-T changes CXR - no active pulmonary disease ASSESSMENT AND PLAN: 77 yof with PMHx of Afib on xarelto, CAD s/p RI/LCx PCI in 2009, CHF, (last Echo 2018 EF 50-55% with normal LV function), small pericardial effusion, obesity, nephrolithiais s/p stent years ago, comes with urinary/flank symptoms and decreased oral intake. -Acute lower uncomplicated UTI _Acute right pyelonephritis -BERNIE, likely from hpovolumia -Non obstructive uropathy -Elevated troponin suspect demand from above, repeat Neg. -Lactic acidosis, likely hypovolumia, +/- early sepsis -Chronic small pericardial effusoin -Chronic CHF (recent EF improved) -HTN -CAD -HLD Plan: Ceftriaxone, blood/urine cultures sent from ED. Urology input if fails to improve or new concerns. Gentle hdyration with 1/2 NS at 42 ml/hr. Patient advised to drink more fluids today. Hold lisinopril for now. Monitor renal function, strict I/Os, daily weights. Repeat trop neg. EKG non concerning. Telemetry, cardiology input. Repeat 2D echo. Renally dose xarelto to 15 mg daily. ASA as tolerated. Continue statin. DVTPPX as above Dispo pending clinical improvement. PT eval once improved Plan discussed with patient in detail, all questions answered. Total admit time 60 min.
--- NOTE | 2017-09-13 18:41 | HP ---
CHIEF COMPLAINT: PCP: Dr. Morejon Cardiology: Dr. Yanez ([facility]) HISTORY OF PRESENT ILLNESS: 77 y/o F with PMHx significant for AFib (on xarelto), CAD (NSTEMI s/p LCX stent in 2009), Kidney stones (R Kidney Stent placed 3 years ago at [facility]), HTN, HLD , Gout and CHF presents with Nausea and back pain. Patient has had decrease PO intake and been unable to keep anything down since Wednesday. Patient complains of Nightly chills that last 2 hours, Shakes (?Rigors), Wet cough, Fatigued, 9/ 10 R Flank pain, Headache, Urinary urgency and frequency. Patient has noted some blood in the bowl and blood when wiping after urination. She has tried 2 extra strength tylenols that have helped somewhat. She has not had a BM in 2 days. Patient has not taken her home medications taste. Denies recent Abx use, Medication changes, Recent travel, sick contacts. ER course was notable for: (1) UA: 3+ Protein, 3+ Blood, 2.0 Urobilinogen, 2+ Leuk Esterase, 1107 WBC, 614 RBC (2) WBC 10.6, K+ 3.3, BUN 27, Cr 1.2, Lactic acid 2.1 --> 2.2, Trop 0.06 --> 0.03, FOBT negative (3) Rocephin, Zofran, NS, Morphine Recent Travel: Denies PAST MEDICAL HISTORY: - Paroxysmal AFib (on xarelto) - CAD (NSTEMI s/p LCX stent in 2009) - Kidney stones (R Kidney Stent placed 3 years ago at [facility]) - HTN - Valvular Heart disease - HLD - Gout - CHF PAST SURGICAL HISTORY: Denies Social History: Smokin cigarettes/day x 14 years Alcohol: 4-5 drinks every other weekend Drugs: Denies Family History: Denies Allergies No Known Allergies Allergy (Verified 09/13/17 10:19) HOME MEDICATIONS: Home Medications Medication Instructions Recorded Aspirin 81 mg PO DAILY 04/11/17 Atorvastatin Ca [Lipitor] 20 mg PO HS 04/11/17 Lisinopril [Prinivil -] 40 mg PO DAILY 04/11/17 Rivaroxaban [Xarelto -] 20 mg PO DAILY 04/11/17 Allopurinol [Zyloprim -] 100 mg PO DAILY #30 tablet 04/13/17 Diltiazem Cd [Cardizem Cd -] 240 mg PO DAILY #0 cap.cd.24h 04/13/17 REVIEW OF SYSTEMS CONSTITUTIONAL: Present: chills, Fatigue Absent: fever, diaphoresis, generalized weakness, malaise, loss of appetite, weight change HEENT: Absent: rhinorrhea, nasal congestion, throat pain, throat swelling, difficulty swallowing, mouth swelling, ear pain, eye pain, visual changes CARDIOVASCULAR: Absent: chest pain, syncope, palpitations, irregular heart rate, lightheadedness , peripheral edema RESPIRATORY: Present: Cough Absent: shortness of breath, dyspnea with exertion, orthopnea, wheezing, stridor , hemoptysis GASTROINTESTINAL: Present: nausea Absent: abdominal pain, abdominal distension, vomiting, diarrhea, constipation , melena, hematochezia GENITOURINARY: Present: frequency, urgency, hematuria, flank pain Absent: dysuria, hesitancy, genital pain MUSCULOSKELETAL: Present: CVA Tenderness Absent: myalgia, arthralgia, joint swelling, back pain, neck pain SKIN: Absent: rash, itching, pallor HEMATOLOGIC/IMMUNOLOGIC: Absent: easy bleeding, easy bruising, lymphadenopathy, frequent infections ENDOCRINE: Absent: unexplained weight gain, unexplained weight loss, heat intolerance, cold intolerance NEUROLOGIC: Present: Headache Absent: focal weakness or paresthesias, dizziness, unsteady gait, seizure, mental status changes, bladder or bowel incontinence PSYCHIATRIC: Absent: anxiety, depression, suicidal or homicidal ideation, hallucinations. PHYSICAL EXAMINATION Vital Signs - 24 hr 09/13/17 09/13/17 10:19 13:05 Temperature 98.4 F Pulse Rate 95 H Pulse Rate [ 90 Radial] Respiratory 20 18 Rate Blood Pressure 103/55 Blood Pressure 116/70 [Right Arm] O2 Sat by Pulse 96 96 Oximetry (%) GENERAL: Awake, alert, and fully oriented, in no acute distress. NECK: No JVD LUNGS: Breath sounds equal, clear to auscultation bilaterally. No wheezes, and no crackles. No accessory muscle use. HEART: Regular rate and rhythm, normal S1 and S2 without murmur. ABDOMEN: Soft, Right lateral tenderness, not distended, normoactive bowel sounds , no guarding, no rebound BACK: Right CVA tenderness, + [employer] punch UPPER EXTREMITIES: 2+ pulses, warm, Tophi present on each first digit LOWER EXTREMITIES: 2+ pulses, warm, No peripheral edema. Laboratory Results - last 24 hr 09/13/17 09/13/17 09/13/17 11:00 11:00 11:00 WBC 10.6 H RBC 3.87 Hgb 13.7 Hct 39.4 MCV 102.0 H MCH 35.5 H MCHC 34.8 RDW 13.9 Plt Count 109 L D MPV 8.2 Absolute Neuts (auto) 7.3 Neutrophils % 69.4 Neutrophils % (Manual) 71.0 Band Neutrophils % 2.1 Lymphocytes % 4.4 L D Lymphocytes % (Manual) 4.3 L D Monocytes % 26.0 H Monocytes % (Manual) 23 H Eosinophils % 0.0 D Eosinophils % (Manual) 0.0 Basophils % 0.2 Basophils % (Manual) 0.0 Myelocytes % (Man) 0 Promyelocytes % (Man) 0 Blast Cells % (Manual) 0 Nucleated RBC % 1 H Metamyelocytes 0 Hypochromia 0 Platelet Estimate Decreased Polychromasia 1+ Poikilocytosis 0 Anisocytosis 0 Microcytosis 0 Macrocytosis 1+ PT with INR 15.40 H INR 1.36 H Sodium Cancelled Potassium Cancelled Chloride Cancelled Carbon Dioxide Cancelled Anion Gap Cancelled BUN Cancelled Creatinine Cancelled Creat Clearance w eGFR Cancelled Random Glucose Cancelled Lactic Acid Calcium Cancelled Total Bilirubin Cancelled AST Cancelled ALT Cancelled Alkaline Phosphatase Cancelled Creatine Kinase Troponin I Total Protein Cancelled Albumin Cancelled Urine Color Urine Appearance Urine pH Ur Specific [place] Urine Protein Urine Glucose (UA) Urine Ketones Urine Blood Urine Nitrite Urine Bilirubin Urine Urobilinogen Ur Leukocyte Esterase Urine WBC (Auto) Urine RBC (Auto) Ur Epithelial Cells Hyaline Casts Urine Mucus Stool Occult Blood 09/13/17 09/13/17 09/13/17 11:00 11:03 12:15 WBC RBC Hgb Hct MCV MCH MCHC RDW Plt Count MPV Absolute Neuts (auto) Neutrophils % Neutrophils % (Manual) Band Neutrophils % Lymphocytes % Lymphocytes % (Manual) Monocytes % Monocytes % (Manual) Eosinophils % Eosinophils % (Manual) Basophils % Basophils % (Manual) Myelocytes % (Man) Promyelocytes % (Man) Blast Cells % (Manual) Nucleated RBC % Metamyelocytes Hypochromia Platelet Estimate Polychromasia Poikilocytosis Anisocytosis Microcytosis Macrocytosis PT with INR INR Sodium 139 Potassium 3.3 L Chloride 103 Carbon Dioxide 27 Anion Gap 9 BUN 27 H Creatinine 1.2 H Creat Clearance w eGFR 43.68 Random Glucose 149 H Lactic Acid 2.1 H Calcium 9.1 Total Bilirubin 0.6 AST 20 ALT 18 Alkaline Phosphatase 104 Creatine Kinase 47 Troponin I 0.06 H Total Protein 6.6 Albumin 3.2 L Urine Color Becky Urine Appearance Cloudy Urine pH 5.0 Ur Specific [place] 1.022 Urine Protein 3+ H Urine Glucose (UA) Negative Urine Ketones Negative Urine Blood 3+ H Urine Nitrite Negative Urine Bilirubin Negative Urine Urobilinogen 2.0 H Ur Leukocyte Esterase 2+ H Urine WBC (Auto) 1107 Urine RBC (Auto) 615 Ur Epithelial Cells Few Hyaline Casts 7 Urine Mucus Rare Stool Occult Blood 09/13/17 09/13/17 09/13/17 12:30 13:10 16:02 WBC RBC Hgb Hct MCV MCH MCHC RDW Plt Count MPV Absolute Neuts (auto) Neutrophils % Neutrophils % (Manual) Band Neutrophils % Lymphocytes % Lymphocytes % (Manual) Monocytes % Monocytes % (Manual) Eosinophils % Eosinophils % (Manual) Basophils % Basophils % (Manual) Myelocytes % (Man) Promyelocytes % (Man) Blast Cells % (Manual) Nucleated RBC % Metamyelocytes Hypochromia Platelet Estimate Polychromasia Poikilocytosis Anisocytosis Microcytosis Macrocytosis PT with INR INR Sodium Potassium Chloride Carbon Dioxide Anion Gap BUN Creatinine Creat Clearance w eGFR Random Glucose Lactic Acid 2.2 H* Calcium Total Bilirubin AST ALT Alkaline Phosphatase Creatine Kinase 71 Troponin I 0.03 Total Protein Albumin Urine Color Urine Appearance Urine pH Ur Specific [place] Urine Protein Urine Glucose (UA) Urine Ketones Urine Blood Urine Nitrite Urine Bilirubin Urine Urobilinogen Ur Leukocyte Esterase Urine WBC (Auto) Urine RBC (Auto) Ur Epithelial Cells Hyaline Casts Urine Mucus Stool Occult Blood Negative Active Medications Ceftriaxone Sodium 1 gm/ (Dextrose) 50 mls @ 100 mls/hr IVPB DAILY BRYCE; Protocol Sodium Chloride (1/2 Normal Saline) 1,000 mls @ 42 mls/hr IV ASDIR BRYCE Last Admin: 09/13/17 20:50 Dose: 42 mls/hr IMAGING: - CT A/P: Cardiomegaly and pericardial effusion. Bilateral renal vascular calcification and nonobstructing calculi with no evidence of hydronephrosis or obstructive uropathy. Right inguinal hernia. No evidence of acute pathology within the abdomen or pelvis. Please see above discussion. - CXR: No evidence of active pulmonary disease - EKG: AFib with PVC, No acute ST-T wave changes ASSESSMENT/PLAN: 77 y/o F with PMHx significant for AFib (on xarelto), CAD (NSTEMI s/p LCX stent in 2009), Kidney stones (R Kidney Stent placed 3 years ago at [facility]) HTN, HLD, Gout and CHF presents with Nausea, back pain and decreased PO intake is found to have a UTI, BERNIE and elevated troponins. 1. Acute right Pyleonephritis - Hx of Kidney stones (R Kidney Stent placed 3 years ago at [facility]) - Complains of Urinary urgency and frequency, Blood in bowl and with vaginal wiping - + R [employer] punch, + R CVA Tenderness - Afebrile, WBC 10.6, Cr 1.2 - UA: 3+ Protein, 3+ Blood, 2.0 Urobilinogen, 2+ Leuk Esterase, 1107 WBC, 614 RBC - CT A/P: Bilateral renal vascular calcification and nonobstructing calculi with no evidence of hydronephrosis or obstructive uropathy. - Blood cx, Urine Cx pending - Started on Ceftriaxone 1 gm IVPB (09/13) - Continue 1/2 Normal Saline @ 42 mls/hr IV - Pain control via IV Acetaminophen - IV Zofran 4mg - Nephrology and Urology consult considered if failure to improve - Monitor Renal function - Strict I/O's, daily wieghts 2. UTI - Complains of Urinary urgency and frequency, Blood in bowl and with vaginal wiping - UA: 3+ Protein, 3+ Blood, 2.0 Urobilinogen, 2+ Leuk Esterase, 1107 WBC, 614 RBC - Urine Cx pending - Started on Ceftriaxone 1 gm IVPB (09/13) - Continue 1/2 Normal Saline @ 42 mls/hr IV 3. BERNIE - Cr 1.2 - Likely from hypovolemia - Continue 1/2 Normal Saline @ 42 mls/hr IV - Avoid Nephrotoxic medications - Nephrology consult considered if failure to improve - Monitor Renal function 4. Tropinemia - 0.06 --> 0.03 - EKG: AFib with PVC, No acute ST-T wave changes - Denies any chest pain, pressure or tightness - Likely demand from Acute Pyleonephritis and Acute UTI - Telemetry - Cardiology (Dr. Garza) consulted - Repeat Echo 5. Atrial fibrillation - EKG: AFib with PVC, No acute ST-T wave changes - Renally dose Xarelto to 15mg daily - Continue home dose aspirin as tolerated 6. CAD (NSTEMI s/p LCX stent in 2009) - Cardiology (Dr. Garza) consulted - Repeat Echo - Continue to monitor 7. HTN - BP: 103/55 - Home dose lisinopril held 8. HLD - Continue home dose Atorvastatin 20 mg PO HS 9. Gout - Tophi present on each first digit - Continue home dose Allopurinol 100 mg PO DAILY 10. FEN - Continue 1/2 Normal Saline @ 42 mls/hr IV - Replete as needed - Cardiac (Cholesterol/Na) diet Dispo: Admit to tele Visit type - Emergency Visit Emergency Visit: Yes ED Registration Date: 09/13/17 Care time: The patient presented to the Emergency Department on the above date and was hospitalized for further evaluation of their emergent condition. - New Patient This patient is new to me today: Yes Date on this admission: 09/14/17 - Critical Care Critical Care patient: No Hospitalist Screening - Colonoscopy Questionnaire Colonoscopy Questionnaire: Colonoscopy Questionnaire - Patient: 50 - 75 years old and never had a screening colonoscopy: Unknown History of colon or rectal polyps, or CA: Unknown History of IBD, Crohn's disease or UC: Unknown History of abdominal radiation therapy as a child: Unknown - Relative: 1 with colon or rectal CA, or polyps at age 60 or younger: Unknown Colon or rectal CA diagnosed at age 45 or younger: Unknown Multiple relatives with colon or rectal CA: Unknown - Outcome: Screening Result: Negative Screen
[2017-09-13] MEDS: SODIUM CHLORIDE 0.45% 1,000 ML IV SCH (20:50)
[2017-09-13] MEDS: ZOLPIDEM TARTRATE 5 MG TABLET PO PRN (22:48)
[2017-09-13] MEDS ORDERED: ZOLPIDEM TARTRATE 5 MG TABLET ONE (22:49)
[2017-09-13] MEDS ORDERED: ZOLPIDEM TARTRATE 5 MG TABLET PO ONE (23:15)
[2017-09-14] MEDS ORDERED: ACETAMINOPHEN 325 MG TABLET (FP) ONE ×3 (01:18→16:41)
[2017-09-14] MEDS ORDERED: ONDANSETRON 4 MG/2 ML VIAL ONE (01:26)
[2017-09-14] MEDS: ONDANSETRON 4 MG/2 ML VIAL IVPUSH PRN (01:28)
[2017-09-14] MEDS: ACETAMINOPHEN 325 MG TABLET (FP) PO PRN ×2 (01:28→22:00)
[2017-09-14 07:43] LABS: BASO % 0.1 % (0-2.0); HEMATOCRIT 34.6 % (32.4-45.2); MCH 35.6 pg (25.7-33.7); MCHC 34.7 g/dl (32.0-36.0); MEAN CELL VOLUME 102.6 fl (80-96); MEAN PLT VOLUME 8.4 fl (7.5-11.1); MONO % 28.9 % (3.8-10.2); PLATELET COUNT 85 K/MM3 (134-434); RBC 3.37 M/mm3 (3.60-5.2); RDW 13.7 % (11.6-15.6); WHITE BLOOD COUNT 10.8 K/mm3 (4.0-10.0)
[2017-09-14 08:11] LABS: ALBUMIN 2.7 g/dl (3.4-5.0); ANION GAP 10 (8-16); BLOOD UREA NITROGEN 19 mg/dL (7-18); CALCIUM 8.9 mg/dL (8.5-10.1); CHLORIDE 107 mmol/L (98-107); CO2 27 mmol/L (21-32); GLUCOSE,RANDOM 100 mg/dL (74-106); MAGNESIUM 1.9 mg/dL (1.8-2.4); POTASSIUM 3.8 mmol/L (3.5-5.1); SODIUM 144 mmol/L (136-145)
[2017-09-14 08:14] LABS: ALK PHOS 86 U/L (45-117); BILIRUBIN,TOTAL 0.8 mg/dL (0.2-1.0); CREATININE 0.8 mg/dL (0.55-1.02); PHOSPHOROUS 2.5 mg/dL (2.5-4.9); SGOT/AST 14 U/L (15-37); SGPT/ALT 13 U/L (12-78); TOT PROT 5.4 g/dl (6.4-8.2)
[2017-09-14] MEDS ORDERED: CEFTRIAXONE 1 GM in DEXTROSE 5%-WATER - 50 ML IVPB SCH (10:00)
[2017-09-14] MEDS ORDERED: CEFTRIAXONE 1 GM/50 ML BAG ONE (10:12)
--- NOTE | 2017-09-14 10:37 | CON.CARD ---
Consult Consult Specialty:: Cardiology Referred by:: Hospitalist Reason for Consultation:: Cardiac evaluation - History of Present Illness Chief Complaint: Right flank pain History of Present Illness: Patient is a 77 year old female with underlying history of persistent AF on NOAC (Xarelto), CAD with history of NSTEMI s/p PCI/stent to LCx in 2009, nephrolithiasis (history of stone extraction and stent at [facility]), HTN, hyperlipidemia, gout and CHF who presents with back pain and right flank pain. Monitor reveals AF with RVR at 120's. She denies chest pain or SOB. She denies nausea, vomiting, diarrhea or abdominal pain. She complains of chills but no fever. She also complains of shakes and also has had hematuria and urinary urgency. She sees Dr. Natanael Yanez ([employer] affiliated with [facility] [place]). ER course is noted abnormal UA with protein and blood in the urine and probable UTI. Troponin was also elevated likely due to demand ischemia. She states she has not taken her cardiac medications since Wednesday due to pain. - History Source History Provided By: Patient, Medical Record Limitations to Obtaining History: No Limitations - Past Medical History Cardio/Vascular: Yes: AFIB, CAD, HTN, Hyperlipdemia Renal/: Yes: Hematuria, Renal Calculi Musculoskeletal: Yes: Chronic low back pain, Osteoarthritis Rheumatology: Yes: Gout (Arthritis) Endocrine: No: Diabetes Mellitus - Past Surgical History Past Surgical History: Yes: Stent Additional Surgical History: Surgery for nephrolithiasis - Alcohol/Substance Use Hx Alcohol Use: No History of Substance Use: reports: None - Smoking History Smoking history: Current some day smoker Have you smoked in the past 12 months: Yes Aproximately how many cigarettes per day: 3 - Social History ADL: Independent History of Recent Travel: No Home Medications - Allergies Allergies/Adverse Reactions: Allergies Allergy/AdvReac Type Severity Reaction Status Date / Time No Known Allergies Allergy Verified 09/13/17 10:19 - Home Medications Home Medications: Ambulatory Orders Aspirin 81 mg PO DAILY 04/11/17 Atorvastatin Ca [Lipitor] 20 mg PO HS 04/11/17 Lisinopril [Prinivil -] 40 mg PO DAILY 04/11/17 Rivaroxaban [Xarelto -] 20 mg PO DAILY 04/11/17 Allopurinol [Zyloprim -] 100 mg PO DAILY #30 tablet 04/13/17 Diltiazem Cd [Cardizem Cd -] 240 mg PO DAILY #0 cap.cd.24h 04/13/17 Zolpidem Tartrate [Ambien] 10 mg PO HS 09/13/17 Review of Systems - Review of Systems Constitutional: reports: Chills. denies: Fever Cardiovascular: denies: Chest Pain, Palpitations, Shortness of Breath Respiratory: denies: Cough, Hemoptysis, Orthopnea, PND, SOB, SOB on Exertion Gastrointestinal: denies: Abdominal Pain, Constipation, Diarrhea, Melena, Nausea , Rectal Bleeding, Vomiting Genitourinary: reports: Flank Pain, Hematuria, Urgency Musculoskeletal: reports: Back Pain. denies: Joint Pain Neurological: denies: Dizziness, Headache, Seizure, Syncope Vital Signs: Vital Signs Temperature 99.0 F 09/14/17 08:51 Pulse Rate 100 H 09/14/17 08:51 Respiratory Rate 18 09/14/17 08:51 Blood Pressure 141/82 09/14/17 08:51 O2 Sat by Pulse Oximetry (%) 100 09/14/17 08:51 Eyes: Yes: PERRL HENT: Yes: Atraumatic Neck: Yes: Supple Respiratory: Yes: CTA Bilaterally Gastrointestinal: Yes: Normal Bowel Sounds, Soft. No: Tenderness Renal/: Yes: CVA Tenderness - Right, Hematuria Cardiovascular: Yes: Tachycardia, Pulse Irregular JVD: No Carotid Bruit: No PMI: Non-Displaced Heart Sounds: Yes: S1, S2. No: Gallop Edema: No - Other Data Labs, Other Data: CBC, BMP 09/14/17 06:30 09/14/17 06:30 INR, PTT INR 1.36 (0.83-1.09) H 09/13/17 11:00 Troponin, BNP 09/13/17 09/13/17 09/14/17 11:03 16:02 01:25 Troponin I 0.06 H 0.03 0.02 Laboratory Results - last 24 hr 09/13/17 09/13/17 09/13/17 11:00 11:00 11:00 WBC 10.6 H RBC 3.87 Hgb 13.7 Hct 39.4 MCV 102.0 H MCH 35.5 H MCHC 34.8 RDW 13.9 Plt Count 109 L D MPV 8.2 Absolute Neuts (auto) 7.3 Neutrophils % 69.4 Neutrophils % (Manual) 71.0 Band Neutrophils % 2.1 Lymphocytes % 4.4 L D Lymphocytes % (Manual) 4.3 L D Monocytes % 26.0 H Monocytes % (Manual) 23 H Eosinophils % 0.0 D Eosinophils % (Manual) 0.0 Basophils % 0.2 Basophils % (Manual) 0.0 Myelocytes % (Man) 0 Promyelocytes % (Man) 0 Blast Cells % (Manual) 0 Nucleated RBC % 1 H Metamyelocytes 0 Hypochromia 0 Platelet Estimate Decreased Polychromasia 1+ Poikilocytosis 0 Anisocytosis 0 Microcytosis 0 Macrocytosis 1+ PT with INR 15.40 H INR 1.36 H Sodium Cancelled Potassium Cancelled Chloride Cancelled Carbon Dioxide Cancelled Anion Gap Cancelled BUN Cancelled Creatinine Cancelled Creat Clearance w eGFR Cancelled Random Glucose Cancelled Lactic Acid Calcium Cancelled Phosphorus Magnesium Total Bilirubin Cancelled AST Cancelled ALT Cancelled Alkaline Phosphatase Cancelled Creatine Kinase Troponin I Total Protein Cancelled Albumin Cancelled Urine Color Urine Appearance Urine pH Ur Specific [place] Urine Protein Urine Glucose (UA) Urine Ketones Urine Blood Urine Nitrite Urine Bilirubin Urine Urobilinogen Ur Leukocyte Esterase Urine WBC (Auto) Urine RBC (Auto) Ur Epithelial Cells Hyaline Casts Urine Mucus Stool Occult Blood 09/13/17 09/13/17 09/13/17 11:00 11:03 12:15 WBC RBC Hgb Hct MCV MCH MCHC RDW Plt Count MPV Absolute Neuts (auto) Neutrophils % Neutrophils % (Manual) Band Neutrophils % Lymphocytes % Lymphocytes % (Manual) Monocytes % Monocytes % (Manual) Eosinophils % Eosinophils % (Manual) Basophils % Basophils % (Manual) Myelocytes % (Man) Promyelocytes % (Man) Blast Cells % (Manual) Nucleated RBC % Metamyelocytes Hypochromia Platelet Estimate Polychromasia Poikilocytosis Anisocytosis Microcytosis Macrocytosis PT with INR INR Sodium 139 Potassium 3.3 L Chloride 103 Carbon Dioxide 27 Anion Gap 9 BUN 27 H Creatinine 1.2 H Creat Clearance w eGFR 43.68 Random Glucose 149 H Lactic Acid 2.1 H Calcium 9.1 Phosphorus Magnesium Total Bilirubin 0.6 AST 20 ALT 18 Alkaline Phosphatase 104 Creatine Kinase 47 Troponin I 0.06 H Total Protein 6.6 Albumin 3.2 L Urine Color Becky Urine Appearance Cloudy Urine pH 5.0 Ur Specific [place] 1.022 Urine Protein 3+ H Urine Glucose (UA) Negative Urine Ketones Negative Urine Blood 3+ H Urine Nitrite Negative Urine Bilirubin Negative Urine Urobilinogen 2.0 H Ur Leukocyte Esterase 2+ H Urine WBC (Auto) 1107 Urine RBC (Auto) 615 Ur Epithelial Cells Few Hyaline Casts 7 Urine Mucus Rare Stool Occult Blood 09/13/17 09/13/17 09/13/17 12:30 13:10 16:02 WBC RBC Hgb Hct MCV MCH MCHC RDW Plt Count MPV Absolute Neuts (auto) Neutrophils % Neutrophils % (Manual) Band Neutrophils % Lymphocytes % Lymphocytes % (Manual) Monocytes % Monocytes % (Manual) Eosinophils % Eosinophils % (Manual) Basophils % Basophils % (Manual) Myelocytes % (Man) Promyelocytes % (Man) Blast Cells % (Manual) Nucleated RBC % Metamyelocytes Hypochromia Platelet Estimate Polychromasia Poikilocytosis Anisocytosis Microcytosis Macrocytosis PT with INR INR Sodium Potassium Chloride Carbon Dioxide Anion Gap BUN Creatinine Creat Clearance w eGFR Random Glucose Lactic Acid 2.2 H* Calcium Phosphorus Magnesium Total Bilirubin AST ALT Alkaline Phosphatase Creatine Kinase 71 Troponin I 0.03 Total Protein Albumin Urine Color Urine Appearance Urine pH Ur Specific [place] Urine Protein Urine Glucose (UA) Urine Ketones Urine Blood Urine Nitrite Urine Bilirubin Urine Urobilinogen Ur Leukocyte Esterase Urine WBC (Auto) Urine RBC (Auto) Ur Epithelial Cells Hyaline Casts Urine Mucus Stool Occult Blood Negative 09/14/17 09/14/17 09/14/17 01:25 06:30 06:30 WBC 10.8 H RBC 3.37 L Hgb 12.0 Hct 34.6 MCV 102.6 H MCH 35.6 H MCHC 34.7 RDW 13.7 Plt Count 85 L D MPV 8.4 Absolute Neuts (auto) 7.0 Neutrophils % 65.0 Neutrophils % (Manual) Band Neutrophils % Lymphocytes % 6.0 L D Lymphocytes % (Manual) Monocytes % 28.9 H Monocytes % (Manual) Eosinophils % 0.0 Eosinophils % (Manual) Basophils % 0.1 Basophils % (Manual) Myelocytes % (Man) Promyelocytes % (Man) Blast Cells % (Manual) Nucleated RBC % 0 Metamyelocytes Hypochromia Platelet Estimate Polychromasia Poikilocytosis Anisocytosis Microcytosis Macrocytosis PT with INR INR Sodium 144 Potassium 3.8 Chloride 107 Carbon Dioxide 27 Anion Gap 10 BUN 19 H Creatinine 0.8 Creat Clearance w eGFR > 60 Random Glucose 100 Lactic Acid Calcium 8.9 Phosphorus 2.5 Magnesium 1.9 Total Bilirubin 0.8 AST 14 L ALT 13 Alkaline Phosphatase 86 D Creatine Kinase Troponin I 0.02 Total Protein 5.4 L Albumin 2.7 L Urine Color Urine Appearance Urine pH Ur Specific [place] Urine Protein Urine Glucose (UA) Urine Ketones Urine Blood Urine Nitrite Urine Bilirubin Urine Urobilinogen Ur Leukocyte Esterase Urine WBC (Auto) Urine RBC (Auto) Ur Epithelial Cells Hyaline Casts Urine Mucus Stool Occult Blood Atrial fibrillation with RVR Imaging - Results Chest X-ray: Report Reviewed (Unremarkable) Cat Scan: Report Reviewed (Abdominal CT: renal calculi, cardiomegaly and ? pericardial effusion) EKG: Report Reviewed Problem List - Problems (1) Atrial fibrillation Code(s): I48.91 - UNSPECIFIED ATRIAL FIBRILLATION Qualifiers: Atrial fibrillation type: persistent Qualified Code(s): I48.1 - Persistent atrial fibrillation (2) HTN (hypertension) Code(s): I10 - ESSENTIAL (PRIMARY) HYPERTENSION Qualifiers: Hypertension type: essential hypertension Qualified Code(s): I10 - Essential (primary) hypertension (3) Hypercholesterolemia Code(s): E78.00 - PURE HYPERCHOLESTEROLEMIA, UNSPECIFIED (4) Demand ischemia Code(s): I24.8 - OTHER FORMS OF ACUTE ISCHEMIC HEART DISEASE (5) BERNIE (acute kidney injury) Code(s): N17.9 - ACUTE KIDNEY FAILURE, UNSPECIFIED (6) Pyelonephritis Code(s): N12 - TUBULO-INTERSTITIAL NEPHRITIS, NOT SPCF ACUTE OR CHRONIC Assessment/Plan 1. Atrial fibrillation with RVR due to pain 2. Nephrolithiasis with right flank pain 3. Pyelonephritis 4. HTN 5. Hypercholesterolemia 6. Demand ischemia PLAN: 1. Continue Xarelto 20 mg once a day (not the lower dose) 2 Continue Cardizem CD 3. Continue Lisinopril 4. Statin therapy 5. Antibiotic coverage for presumed pyelonephritis 6. input to follow 7. Trend troponin (back to normal) Follow up with Dr. Natanael Yanez upon discharge Ricky Hassan MD
[2017-09-14 12:44] LABS: ANISOCYTOSIS 1+; MACROCYTOSIS 1+; OVALOCYTE 1+; PLATELET ESTIMATE DECREASED
--- NOTE | 2017-09-14 13:23 | PN ---
Progress Note (short form) - Note Progress Note: ID Consult dictated Gram Negative bacteremia/ sepsis secondary to Acute R pyelonephritis Await c/s Empiric ceftriaxone IVF hydration
--- NOTE | 2017-09-14 16:28 | EKG ---
Test Reason : Blood Pressure : / mmHG Vent. Rate : 088 BPM Atrial Rate : 277 BPM P-R Int : 000 ms QRS Dur : 096 ms QT Int : 352 ms P-R-T Axes : 000 -10 158 degrees QTc Int : 425 ms ATRIAL FIBRILLATION WITH PREMATURE VENTRICULAR OR ABERRANTLY CONDUCTED COMPLEXES MINIMAL VOLTAGE CRITERIA FOR LVH, MAY BE NORMAL VARIANT SEPTAL INFARCT (CITED ON OR BEFORE 11-APR-2017) ABNORMAL ECG WHEN COMPARED WITH ECG OF 11-APR-2017 20:00, NO SIGNIFICANT CHANGE WAS FOUND Confirmed by Bj Mathis MD ([id number]) on 09/14/2017 4:27:23 PM Referred By: Confirmed By:Bj Mathis MD
--- NOTE | 2017-09-14 16:36 | CONS ---
INFECTIOUS DISEASE CONSULTATION DATE OF CONSULTATION: DATE OF DICTATION: 09/14/2017 The patient is a 77-year-old female who is evaluated for sepsis. She presents to the emergency room with a 3-day history of worsening right flank pain, urinary frequency, hematuria, nausea, chills. She was found on exam to have right CVA tenderness. The urinalysis showed many white cells. Blood and urine cultures are now growing gram-negative gaurav. Patient reports urinary frequency and urgency. She had a history of gross hematuria. She has been feeling nauseous and has been unable to eat or drink anything. She has a history of nephrolithiasis in the past and had undergone placement of a right ureteral stent approximately 3 years ago. She denies any recent hospitalizations or recent antibiotic therapy. No known history of resistant urinary tract pathogens. PAST MEDICAL HISTORY: Positive for atrial fibrillation, hypertension, hyperlipidemia, coronary artery disease, congestive heart failure. PAST SURGICAL HISTORY: Status post coronary artery stent, a history of nephrolithiasis with right ureteral stent. ALLERGIES: No known allergies. MEDICATIONS: Aspirin, Lipitor, Prinivil, Xarelto, Zyloprim, Cardizem. SOCIAL HISTORY: Positive for tobacco use. SYSTEMS REVIEW: Neurologic: No loss of consciousness, seizure activity, focal weakness. Cardiac: Negative chest pain or palpitations. Respiratory: Negative cough or sputum production. Gastrointestinal: Positive for nausea. No vomiting or diarrhea. Genitourinary: As per HPI. LABORATORY DATA: White count 10.8, hematocrit 34.6, platelet count 85. Creatinine 0.8. Urinalysis 1107 white cells. Blood and urine cultures are pending. CAT scan: Cardiomegaly with pericardial effusion, bilateral renal vascular calcification, nonobstructing calculi. Negative hydronephrosis. Right inguinal hernia. PHYSICAL EXAMINATION: General: She is awake and alert. She is in moderate distress secondary to right flank pain. Vital Signs: Temperature is 99; blood pressure 133/90; pulse 99, regular; respirations 20 per minute. HEENT: Sclerae are anicteric. Heart: Sounds S1, S2. Lungs: Clear. Abdomen: Soft. Right-sided abdominal tenderness to palpation. Right CVA tenderness to palpation. Extremities: Edema 1+. IMPRESSION: 1. Gram-negative bacteremia/sepsis secondary to genitourinary tract. 2. Acute right pyelonephritis. 3. Thrombocytopenia, likely secondary to sepsis. Await culture results. Empiric antibiotic therapy with ceftriaxone. IV fluid hydration. Consider a urology consult. Will follow. Thank you for the kind referral. RAZ JORDAN M.D. [id number]
[2017-09-14] MEDS ORDERED: CEFTRIAXONE 1 GM in DEXTROSE 5%-WATER - 50 ML IVPB ONE (16:45)
--- NOTE | 2017-09-14 17:46 | PN ---
Progress Note (short form) - Note Progress Note: Subjective: The patient was seen and examined at the bedside, she still has complaints of right flank pain. Afebrile Blood culture prelim 1/2 bottles lactose fermenting neg bacilli Urine culture with lactose fermenting neg bacilli Current Medications Generic Name Dose Route Start Last Admin Trade Name Freq PRN Reason Stop Dose Admin Acetaminophen 650 mg 09/13/17 22:22 09/14/17 01:28 Tylenol - PO 650 mg Q6H PRN Administration Pain Atorvastatin Calcium 40 mg 09/14/17 22:00 Lipitor - PO HS BRYCE Diltiazem HCl 240 mg 09/14/17 10:45 09/14/17 13:04 Cardizem Cd - PO 240 mg DAILY BRYCE Administration Sodium Chloride 1,000 mls @ 42 mls/hr 09/13/17 19:30 09/13/17 20:50 1/2 Normal Saline IV 42 mls/hr ASDIR BRYCE Administration Ceftriaxone Sodium 2 gm/ 100 mls @ 200 mls/hr 09/15/17 10:00 Dextrose IVPB DAILY [facility] Protocol Ondansetron HCl 4 mg 09/13/17 22:24 09/14/17 01:28 Zofran Injection IVPUSH 4 mg Q6H PRN Administration NAUSEA AND/OR VOMITING Rivaroxaban 20 mg 09/14/17 18:00 Xarelto - PO DAILY@1800 BRYCE Zolpidem Tartrate 5 mg 09/13/17 22:27 09/13/17 22:48 Ambien - PO 5 mg HS PRN Administration INSOMNIA Objective: Vital Signs Period Temp Pulse Resp BP Sys/Wilder Pulse Ox Last 24 Hr 98.9 F-99.0 F 85-128 18-24 130-141/74-90 96-100 Physical Exam: General: NAD, A&Ox3 Lungs: CTA bilaterally Heart: Irregular pulse, S1S2 Abd: Soft, non-tender, non-distended Ext: Warm, well-perfused CBCD WBC 10.8 K/mm3 (4.0-10.0) H 09/14/17 06:30 RBC 3.37 M/mm3 (3.60-5.2) L 09/14/17 06:30 Hgb 12.0 GM/dL (10.7-15.3) 09/14/17 06:30 Hct 34.6 % (32.4-45.2) 09/14/17 06:30 MCV 102.6 fl (80-96) H 09/14/17 06:30 MCHC 34.7 g/dl (32.0-36.0) 09/14/17 06:30 RDW 13.7 % (11.6-15.6) 09/14/17 06:30 Plt Count 85 K/MM3 (134-434) L D 09/14/17 06:30 MPV 8.4 fl (7.5-11.1) 09/14/17 06:30 CMP Sodium 144 mmol/L (136-145) 09/14/17 06:30 Potassium 3.8 mmol/L (3.5-5.1) 09/14/17 06:30 Chloride 107 mmol/L (98-107) 09/14/17 06:30 Carbon Dioxide 27 mmol/L (21-32) 09/14/17 06:30 Anion Gap 10 (8-16) 09/14/17 06:30 BUN 19 mg/dL (7-18) H 09/14/17 06:30 Creatinine 0.8 mg/dL (0.55-1.02) 09/14/17 06:30 Creat Clearance w eGFR > 60 (>60) 09/14/17 06:30 Random Glucose 100 mg/dL (74-106) 09/14/17 06:30 Calcium 8.9 mg/dL (8.5-10.1) 09/14/17 06:30 Total Bilirubin 0.8 mg/dL (0.2-1.0) 09/14/17 06:30 AST 14 U/L (15-37) L 09/14/17 06:30 ALT 13 U/L (12-78) 09/14/17 06:30 Alkaline Phosphatase 86 U/L (45-117) D 09/14/17 06:30 Total Protein 5.4 g/dl (6.4-8.2) L 09/14/17 06:30 Albumin 2.7 g/dl (3.4-5.0) L 09/14/17 06:30 CARDIAC ENZYMES Creatine Kinase 71 IU/L (26-192) 09/13/17 16:02 Troponin I 0.02 ng/ml (0.00-0.05) 09/14/17 01:25 Microbiology 09/13/17 13:02 Blood - Peripheral Venous Blood Culture - Preliminary Lactose Fermenting Neg Bacilli 09/13/17 13:02 Blood - Peripheral Venous Blood Culture - Preliminary NO GROWTH OBTAINED AFTER 24 HOURS, INCUBATION TO CONTINUE FOR 4 DAYS. 09/13/17 12:15 Urine - Urine Clean Catch Urine Culture - Preliminary Lactose Fermenting Neg Bacilli Pending Organism Assessment: This is a 77 year old female with PMHx of A.fib (on Xarelto), CAD, NSTEMI 2010, kidney stones, HTN, hyperlipidemia, gout, chf who presented to the ED with nausea, right flank pain. Plan: 1) Sepsis 2/2 UTI, acute pyelonephritis, gram negative bacteremia - Continue empiric Ceftriaxone - Awaiting final cultures and sensitivities - Lactic acidosis resolved - Monitor for fevers - Monitor WBC - Appreciate ID consult 2) BERNIE - Resolved 3) Elevated troponins - Mildly elevated, peaked at 0.06 4) A.fib - Continue Xarelto 20mg po daily 5) CAD - Continue home medications 6) F/E/N: - Cardiac diet - Monitor electrolytes 7) Prophylaxis: - On Xarelto - PT evaluation 8) Dispo: - Requires continued inpatient care CODE STATUS: FULL CODE Visit type - Emergency Visit Emergency Visit: Yes ED Registration Date: 09/13/17 Care time: The patient presented to the Emergency Department on the above date and was hospitalized for further evaluation of their emergent condition. - New Patient This patient is new to me today: Yes Date on this admission: 09/14/17 - Critical Care Critical Care patient: No
[2017-09-14] MEDS ORDERED: RIVAROXABAN 15 MG TABLET PO SCH (18:00)
[2017-09-14] MEDS: RIVAROXABAN 20 MG TABLET PO SCH (18:54)
[2017-09-14] MEDS: SODIUM CHLORIDE 0.45% 1,000 ML IV SCH (20:00)
[2017-09-14] MEDS: ATORVASTATIN CA 40 MG TABLET (FP) PO SCH (22:00)
[2017-09-14] MEDS: ZOLPIDEM TARTRATE 5 MG TABLET PO PRN (22:01)
[2017-09-15] MEDS: ACETAMINOPHEN 325 MG TABLET (FP) PO PRN ×2 (06:30→17:24)
[2017-09-15 06:36] LABS: BASO % 0.2 % (0-2.0); EOS % 0.2 % (0-4.5); HEMATOCRIT 32.3 % (32.4-45.2); HEMOGLOBIN 11.4 GM/dL (10.7-15.3); LYMPH % 7.6 % (8-40); MCH 35.8 pg (25.7-33.7); MCHC 35.2 g/dl (32.0-36.0); MEAN CELL VOLUME 101.6 fl (80-96); MEAN PLT VOLUME 8.3 fl (7.5-11.1); MONO % 23.1 % (3.8-10.2); NEUT % 68.9 % (42.8-82.8); PLATELET COUNT 98 K/MM3 (134-434); RBC 3.18 M/mm3 (3.60-5.2); RDW 13.8 % (11.6-15.6); WHITE BLOOD COUNT 8.2 K/mm3 (4.0-10.0)
--- NOTE | 2017-09-15 09:39 | PN ---
Progress Note, Physician History of Present Illness: Continued right flank, no further chills, afib rate-controlled. - Current Medication List Current Medications: Active Medications Acetaminophen (Tylenol -) 650 mg PO Q6H PRN PRN Reason: Pain Last Admin: 09/15/17 06:30 Dose: 650 mg Atorvastatin Calcium (Lipitor -) 40 mg PO HS BRYCE Last Admin: 09/14/17 22:00 Dose: 40 mg Diltiazem HCl (Cardizem Cd -) 240 mg PO DAILY [facility] Last Admin: 09/14/17 13:04 Dose: 240 mg Sodium Chloride (1/2 Normal Saline) 1,000 mls @ 42 mls/hr IV ASDIR BRYCE Last Admin: 09/14/17 20:00 Dose: 42 mls/hr Ceftriaxone Sodium 2 gm/ (Dextrose) 100 mls @ 200 mls/hr IVPB DAILY [facility]; Protocol Ondansetron HCl (Zofran Injection) 4 mg IVPUSH Q6H PRN PRN Reason: NAUSEA AND/OR VOMITING Last Admin: 09/14/17 01:28 Dose: 4 mg Rivaroxaban (Xarelto -) 20 mg PO DAILY@1800 BR[facility]CE Last Admin: 09/14/17 18:54 Dose: 20 mg Zolpidem Tartrate (Ambien -) 5 mg PO HS PRN PRN Reason: INSOMNIA Last Admin: 09/14/17 22:01 Dose: 5 mg - Objective Vital Signs: Vital Signs Temperature 99.0 F 09/15/17 05:40 Pulse Rate 90 09/15/17 05:40 Respiratory Rate 20 09/15/17 05:40 Blood Pressure 137/76 09/15/17 05:40 O2 Sat by Pulse Oximetry (%) 99 09/14/17 21:00 Constitutional: Yes: No Distress, Calm Neck: Yes: Supple Cardiovascular: Yes: Pulse Irregular Respiratory: Yes: Regular, Diminished, On Nasal O2 Gastrointestinal: Yes: Normal Bowel Sounds, Soft Genitourinary: Yes: CVA Tenderness - Right Edema: No Labs: CBC, BMP 09/15/17 05:30 09/14/17 06:30 INR, PTT INR 1.36 (0.83-1.09) H 09/13/17 11:00 - ....Imaging EKG: Report Reviewed (Tele: Rate-controlled afib) Problem List - Problems (1) S/P coronary artery stent placement Code(s): Z95.5 - PRESENCE OF CORONARY ANGIOPLASTY IMPLANT AND GRAFT (2) Diastolic dysfunction Code(s): I51.9 - HEART DISEASE, UNSPECIFIED (3) Old myocardial infarction Code(s): I25.2 - OLD MYOCARDIAL INFARCTION (4) Coronary artery disease Code(s): I25.10 - ATHSCL HEART DISEASE OF [place] CORONARY ARTERY W/O ANG PCTRS Qualifiers: Coronary Disease-Associated Artery/Lesion type: [place] artery [place] vs. transplanted heart: [place] heart Associated angina: without angina Qualified Code(s): I25.10 - Atherosclerotic heart disease of [place] coronary artery without angina pectoris (5) BERNIE (acute kidney injury) Code(s): N17.9 - ACUTE KIDNEY FAILURE, UNSPECIFIED (6) Atrial fibrillation Code(s): I48.91 - UNSPECIFIED ATRIAL FIBRILLATION Qualifiers: Atrial fibrillation type: persistent Qualified Code(s): I48.1 - Persistent atrial fibrillation (7) Demand ischemia Code(s): I24.8 - OTHER FORMS OF ACUTE ISCHEMIC HEART DISEASE (8) HTN (hypertension) Code(s): I10 - ESSENTIAL (PRIMARY) HYPERTENSION Qualifiers: Hypertension type: essential hypertension Qualified Code(s): I10 - Essential (primary) hypertension (9) Hypercholesterolemia Code(s): E78.00 - PURE HYPERCHOLESTEROLEMIA, UNSPECIFIED (10) Pyelonephritis Code(s): N12 - TUBULO-INTERSTITIAL NEPHRITIS, NOT SPCF ACUTE OR CHRONIC Assessment/Plan 1. Atrial fibrillation with RVR due to pain 2. Nephrolithiasis with right flank pain 3. Pyelonephritis 4. HTN 5. Hypercholesterolemia 6. CAD h/o NSTEMI s/p LCX stent in 2009, demand ischemia 7. Diastolic dysfunction PLAN: 1. Continue Xarelto 20 mg once a day 2 Continue Cardizem CD 240 qd, Lipitor 40 qhs, resume lisinopril 10 qd now that renal function improved to baseline & titrate as hemodynamics tolerate 3. Complete antibiotic coverage for presumed pyelonephritis 4. input to follow 5. Troponin have peaked
[2017-09-15] MEDS ORDERED: DEXTROSE 5%-WATER 100 ML IVPB ONE (10:24)
--- NOTE | 2017-09-15 10:50 | PN ---
Progress Note (short form) - Note Progress Note: Subjective: The patient was seen and examined at the bedside, she states she is feeling better today Current Medications Generic Name Dose Route Start Last Admin Trade Name Lui PRN Reason Stop Dose Admin Acetaminophen 650 mg 09/13/17 22:22 09/15/17 06:30 Tylenol - PO 650 mg Q6H PRN Administration Pain Atorvastatin Calcium 40 mg 09/14/17 22:00 09/14/17 22:00 Lipitor - PO 40 mg HS BRYCE Administration Diltiazem HCl 240 mg 09/14/17 10:45 09/14/17 13:04 Cardizem Cd - PO 240 mg DAILY BRYCE Administration Sodium Chloride 1,000 mls @ 42 mls/hr 09/13/17 19:30 09/14/17 20:00 1/2 Normal Saline IV 42 mls/hr ASDIR BRYCE Administration Ceftriaxone Sodium 2 gm/ 100 mls @ 200 mls/hr 09/15/17 10:00 Dextrose IVPB DAILY BRYCE Protocol Lisinopril 10 mg 09/15/17 10:00 Prinivil PO DAILY BRYCE Ondansetron HCl 4 mg 09/13/17 22:24 09/14/17 01:28 Zofran Injection IVPUSH 4 mg Q6H PRN Administration NAUSEA AND/OR VOMITING Rivaroxaban 20 mg 09/14/17 18:00 09/14/17 18:54 Xarelto - PO 20 mg DAILY@1800 BRYCE Administration Zolpidem Tartrate 5 mg 09/13/17 22:27 09/14/17 22:01 Ambien - PO 5 mg HS PRN Administration INSOMNIA Objective: Vital Signs Period Temp Pulse Resp BP Sys/Wilder Pulse Ox Last 24 Hr 97.6 F-99.0 F 82-99 18-20 130-137/74-90 99-100 Physical Exam: General: NAD, A&Ox3 Lungs: CTA bilaterally Heart: Irregular pulse, S1S2 Abd: Soft, non-tender, non-distended Ext: Warm, well-perfused CBCD WBC 8.2 K/mm3 (4.0-10.0) 09/15/17 05:30 RBC 3.18 M/mm3 (3.60-5.2) L 09/15/17 05:30 Hgb 11.4 GM/dL (10.7-15.3) 09/15/17 05:30 Hct 32.3 % (32.4-45.2) L 09/15/17 05:30 MCV 101.6 fl (80-96) H 09/15/17 05:30 MCHC 35.2 g/dl (32.0-36.0) 09/15/17 05:30 RDW 13.8 % (11.6-15.6) 09/15/17 05:30 Plt Count 98 K/MM3 (134-434) L 09/15/17 05:30 MPV 8.3 fl (7.5-11.1) 09/15/17 05:30 CMP Sodium 144 mmol/L (136-145) 09/14/17 06:30 Potassium 3.8 mmol/L (3.5-5.1) 09/14/17 06:30 Chloride 107 mmol/L (98-107) 09/14/17 06:30 Carbon Dioxide 27 mmol/L (21-32) 09/14/17 06:30 Anion Gap 10 (8-16) 09/14/17 06:30 BUN 19 mg/dL (7-18) H 09/14/17 06:30 Creatinine 0.8 mg/dL (0.55-1.02) 09/14/17 06:30 Creat Clearance w eGFR > 60 (>60) 09/14/17 06:30 Random Glucose 100 mg/dL (74-106) 09/14/17 06:30 Calcium 8.9 mg/dL (8.5-10.1) 09/14/17 06:30 Total Bilirubin 0.8 mg/dL (0.2-1.0) 09/14/17 06:30 AST 14 U/L (15-37) L 09/14/17 06:30 ALT 13 U/L (12-78) 09/14/17 06:30 Alkaline Phosphatase 86 U/L (45-117) D 09/14/17 06:30 Total Protein 5.4 g/dl (6.4-8.2) L 09/14/17 06:30 Albumin 2.7 g/dl (3.4-5.0) L 09/14/17 06:30 CARDIAC ENZYMES Creatine Kinase 71 IU/L (26-192) 09/13/17 16:02 Troponin I 0.02 ng/ml (0.00-0.05) 09/14/17 01:25 Microbiology 09/13/17 12:15 Urine - Urine Clean Catch Urine Culture - Preliminary Lactose Fermenting Neg Bacilli Pending Organism 09/13/17 13:02 Blood - Peripheral Venous Blood Culture - Preliminary Lactose Fermenting Neg Bacilli Pending Organism 09/13/17 13:02 Blood - Peripheral Venous Blood Culture - Preliminary NO GROWTH OBTAINED AFTER 24 HOURS, INCUBATION TO CONTINUE FOR 4 DAYS. Assessment: This is a 77 year old female with PMHx of A.fib (on Xarelto), CAD, NSTEMI 2009, kidney stones, HTN, hyperlipidemia, gout, chf who presented to the ED with nausea, right flank pain. Plan: 1) Sepsis 2/2 UTI, acute pyelonephritis, gram negative bacteremia - Continue empiric Ceftriaxone - Awaiting final cultures and sensitivities - Lactic acidosis resolved - Monitor for fevers - WBC wnl - Repeat blood cultures - Appreciate ID consult 2) BERNIE - Resolved 3) Elevated troponins - Mildly elevated, peaked at 0.06 4) A.fib - Continue Xarelto 20mg po daily 5) CAD - Continue home medications 6) HTN - Resume Lisinopril 6) F/E/N: - Cardiac diet - Monitor electrolytes 7) Prophylaxis: - On Xarelto - PT evaluation 8) Dispo: - Requires continued inpatient care CODE STATUS: FULL CODE Visit type - Emergency Visit Emergency Visit: Yes ED Registration Date: 09/13/17 Care time: The patient presented to the Emergency Department on the above date and was hospitalized for further evaluation of their emergent condition. - New Patient This patient is new to me today: No - Critical Care Critical Care patient: No
[2017-09-15] MEDS: CEFTRIAXONE 2 GM in DEXTROSE 5%-WATER 100 ML IVPB SCH (10:54)
[2017-09-15] MEDS: LISINOPRIL 10 MG TABLET (FP) PO SCH (10:55)
[2017-09-15] MEDS ORDERED: oxyCODONE HCL 5 MG TABLET PO ONE (10:59)
[2017-09-15 12:23] LABS: ANISOCYTOSIS 1+; MACROCYTOSIS 1+; OVALOCYTE 1+; PLATELET ESTIMATE DECREASED
[2017-09-15] MEDS: RIVAROXABAN 20 MG TABLET PO SCH (17:24)
[2017-09-15] MEDS: SODIUM CHLORIDE 0.45% 1,000 ML IV SCH (20:00)
[2017-09-15] MEDS: ATORVASTATIN CA 40 MG TABLET (FP) PO SCH (21:16)
[2017-09-15] MEDS: ZOLPIDEM TARTRATE 5 MG TABLET PO PRN (21:17)
[2017-09-16] MEDS: ACETAMINOPHEN 325 MG TABLET (FP) PO PRN ×3 (01:54→17:04)
[2017-09-16 06:33] LABS: BASO % 0.3 % (0-2.0); EOS % 0.3 % (0-4.5); HEMATOCRIT 32.2 % (32.4-45.2); HEMOGLOBIN 11.5 GM/dL (10.7-15.3); LYMPH % 12.5 % (8-40); MCH 35.7 pg (25.7-33.7); MCHC 35.6 g/dl (32.0-36.0); MEAN CELL VOLUME 100.4 fl (80-96); NEUT % 64.9 % (42.8-82.8); PLATELET COUNT 119 K/MM3 (134-434); RDW 13.7 % (11.6-15.6); WHITE BLOOD COUNT 6.1 K/mm3 (4.0-10.0)
[2017-09-16] MEDS: ONDANSETRON 4 MG/2 ML VIAL IVPUSH PRN (08:00)
[2017-09-16] MEDS ORDERED: DEXTROSE 5%-WATER 100 ML IVPB ONE (09:00)
[2017-09-16] MEDS ORDERED: traMADol HCL 50 MG TABLET PO ONE (09:15)
[2017-09-16] MEDS ORDERED: ALBUTEROL SO4 2.5/IPRATROPIUM 0.5 INH SOL 3 ML VIAL.NEB. NEB ONE (09:15)
[2017-09-16] MEDS: LISINOPRIL 10 MG TABLET (FP) PO SCH (09:19)
--- NOTE | 2017-09-16 09:38 | PN ---
Progress Note, Physician History of Present Illness: Continued right flank, afebrile no further chills, afib rate-controlled. - Current Medication List Current Medications: Active Medications Acetaminophen (Tylenol -) 650 mg PO Q6H PRN PRN Reason: Pain Last Admin: 09/16/17 08:01 Dose: 650 mg Atorvastatin Calcium (Lipitor -) 40 mg PO HS [facility] Last Admin: 09/15/17 21:16 Dose: 40 mg Diltiazem HCl (Cardizem Cd -) 240 mg PO DAILY [facility] Last Admin: 09/16/17 09:20 Dose: 240 mg Sodium Chloride (1/2 Normal Saline) 1,000 mls @ 42 mls/hr IV ASDIR [facility] Last Admin: 09/15/17 20:00 Dose: 42 mls/hr Ceftriaxone Sodium 2 gm/ (Dextrose) 100 mls @ 200 mls/hr IVPB DAILY [facility]; Protocol Last Admin: 09/15/17 10:54 Dose: 200 mls/hr Lisinopril (Prinivil) 10 mg PO DAILY [facility] Last Admin: 09/16/17 09:19 Dose: 10 mg Ondansetron HCl (Zofran Injection) 4 mg IVPUSH Q6H PRN PRN Reason: NAUSEA AND/OR VOMITING Last Admin: 09/16/17 08:00 Dose: 4 mg Rivaroxaban (Xarelto -) 20 mg PO DAILY@1800 [facility] Last Admin: 09/15/17 17:24 Dose: 20 mg Zolpidem Tartrate (Ambien -) 5 mg PO HS PRN PRN Reason: INSOMNIA Last Admin: 09/15/17 21:17 Dose: 5 mg - Objective Vital Signs: Vital Signs Temperature 98.6 F 09/16/17 06:00 Pulse Rate 91 H 09/16/17 06:00 Respiratory Rate 20 09/16/17 06:00 Blood Pressure 152/91 09/16/17 06:00 O2 Sat by Pulse Oximetry (%) 95 09/15/17 20:54 Constitutional: Yes: No Distress, Calm Neck: Yes: Supple Cardiovascular: Yes: Pulse Irregular Respiratory: Yes: Regular, Diminished Gastrointestinal: Yes: Normal Bowel Sounds, Soft Genitourinary: Yes: CVA Tenderness - Right (Improved) Edema: No Labs: CBC, BMP 09/16/17 05:30 09/14/17 06:30 INR, PTT INR 1.36 (0.83-1.09) H 09/13/17 11:00 - ....Imaging EKG: Report Reviewed (Tele: Rate-controlled afib) Problem List - Problems (1) S/P coronary artery stent placement Code(s): Z95.5 - PRESENCE OF CORONARY ANGIOPLASTY IMPLANT AND GRAFT (2) Diastolic dysfunction Code(s): I51.9 - HEART DISEASE, UNSPECIFIED (3) Old myocardial infarction Code(s): I25.2 - OLD MYOCARDIAL INFARCTION (4) Coronary artery disease Code(s): I25.10 - ATHSCL HEART DISEASE OF [place] CORONARY ARTERY W/O ANG PCTRS Qualifiers: Coronary Disease-Associated Artery/Lesion type: [place] artery [place] vs. transplanted heart: [place] heart Associated angina: without angina Qualified Code(s): I25.10 - Atherosclerotic heart disease of [place] coronary artery without angina pectoris (5) BERNIE (acute kidney injury) Code(s): N17.9 - ACUTE KIDNEY FAILURE, UNSPECIFIED (6) Atrial fibrillation Code(s): I48.91 - UNSPECIFIED ATRIAL FIBRILLATION Qualifiers: Atrial fibrillation type: persistent Qualified Code(s): I48.1 - Persistent atrial fibrillation (7) Demand ischemia Code(s): I24.8 - OTHER FORMS OF ACUTE ISCHEMIC HEART DISEASE (8) HTN (hypertension) Code(s): I10 - ESSENTIAL (PRIMARY) HYPERTENSION Qualifiers: Hypertension type: essential hypertension Qualified Code(s): I10 - Essential (primary) hypertension (9) Hypercholesterolemia Code(s): E78.00 - PURE HYPERCHOLESTEROLEMIA, UNSPECIFIED (10) Pyelonephritis Code(s): N12 - TUBULO-INTERSTITIAL NEPHRITIS, NOT SPCF ACUTE OR CHRONIC Assessment/Plan 1. Atrial fibrillation with RVR due to pain 2. Nephrolithiasis with right flank pain 3. Pyelonephritis, e. coli sepsis 4. HTN 5. Hypercholesterolemia 6. CAD h/o NSTEMI s/p LCX stent in 2009, demand ischemia 7. Diastolic dysfunction PLAN: 1. Continue Xarelto 20 mg once a day 2. Continue Cardizem CD 240 qd, Lipitor 40 qhs, increase lisinopril 20 qd now that renal function improved to baseline & titrate as hemodynamics tolerate 3. Complete antibiotic coverage for pyelonephritis 4. input to follow 5. Troponin have peaked
--- NOTE | 2017-09-16 09:57 | PN ---
Physical Exam: SUBJECTIVE: Patient seen and examined. Pt c/o frontal MELTON and back pain. She is eager to go home. Denies SOB. OBJECTIVE: Vital Signs Period Temp Pulse Resp BP Sys/Wilder Pulse Ox Last 24 Hr 98.0 F-98.7 F 85-92 18-20 122-152/74-91 95-99 PE Neuro: alert, awake, cn 2-12intact Pulm: clear bases bilaterally, anterior wheeze + nc CV: s1 s2 irregular Abd: s nt nd +bs Ext: no le edema Laboratory Results - last 24 hr 09/15/17 09/16/17 05:30 05:30 WBC 6.1 RBC 3.20 L Hgb 11.5 Hct 32.2 L MCV 100.4 H MCH 35.7 H MCHC 35.6 RDW 13.7 Plt Count 119 L D MPV 8.0 Absolute Neuts (auto) 4.0 Neutrophils % 64.9 Neutrophils % (Manual) 64.2 Band Neutrophils % 3.2 Lymphocytes % 12.5 D Lymphocytes % (Manual) 8.4 D Monocytes % 22.0 H Monocytes % (Manual) 22 H Eosinophils % 0.3 Eosinophils % (Manual) 0.0 Basophils % 0.3 Basophils % (Manual) 0.0 Myelocytes % (Man) 2 D Promyelocytes % (Man) 0 Blast Cells % (Manual) 0 Nucleated RBC % 0 Metamyelocytes 0 D Hypochromia 0 Platelet Estimate Decreased Polychromasia 0 Poikilocytosis 1+ Anisocytosis 1+ Microcytosis 1+ Macrocytosis 1+ Ovalocytes 1+ Active Medications Generic Name Dose Route Start Last Admin Trade Name Lucienq PRN Reason Stop Dose Admin Acetaminophen 650 mg 09/13/17 22:22 09/16/17 08:01 Tylenol - PO 650 mg Q6H PRN Administration Pain Atorvastatin Calcium 40 mg 09/14/17 22:00 09/15/17 21:16 Lipitor - PO 40 mg HS [facility] Administration Diltiazem HCl 240 mg 09/14/17 10:45 09/16/17 09:20 Cardizem Cd - PO 240 mg DAILY [facility] Administration Sodium Chloride 1,000 mls @ 42 mls/hr 09/13/17 19:30 09/15/17 20:00 1/2 Normal Saline IV 42 mls/hr ASDIR [facility] Administration Ceftriaxone Sodium 2 gm/ 100 mls @ 200 mls/hr 09/15/17 10:00 09/15/17 10:54 Dextrose IVPB 200 mls/hr DAILY [facility] Administration Protocol Lisinopril 20 mg 09/16/17 09:51 Prinivil PO DAILY [facility] Ondansetron HCl 4 mg 09/13/17 22:24 09/16/17 08:00 Zofran Injection IVPUSH 4 mg Q6H PRN Administration NAUSEA AND/OR VOMITING Rivaroxaban 20 mg 09/14/17 18:00 09/15/17 17:24 Xarelto - PO 20 mg DAILY@1800 [facility] Administration Zolpidem Tartrate 5 mg 09/13/17 22:27 09/15/17 21:17 Ambien - PO 5 mg HS PRN Administration INSOMNIA Microbiology 09/13/17 13:02 Blood - Peripheral Venous Blood Culture - Preliminary Escherichia Coli Staphylococcus Coagulase Neg 09/13/17 13:02 Blood - Peripheral Venous Blood Culture - Preliminary NO GROWTH OBTAINED AFTER 48 HOURS, INCUBATION TO CONTINUE FOR 3 DAYS. 09/13/17 12:15 Urine - Urine Clean Catch Urine Culture - Final Escherichia Coli Diphtheroid/Corynebacterium Assessment: 77 year old female with PMHx of A.fib (on Xarelto), CAD, NSTEMI 2010 , kidney stones, HTN, hyperlipidemia, gout, chf admitted with nausea, right flank pain. Plan: 1. Sepsis 2/2 E coli UTI, acute pyelonephritis, gram negative bacteremia - Repeat BC pending - Pending clearance; transition to PO abx 2. BERNIE - Resolved 3. Elevated troponins - Mildly elevated, peaked at 0.06 4. A.fib - Continue Xarelto 20mg po daily - Cardizem CD 240mg daily 5. HTN - Lisinopril 20mg daily 6. DVT ppx - On Xarelto - Daily PT Visit type - Emergency Visit Emergency Visit: Yes ED Registration Date: 09/13/17 Care time: The patient presented to the Emergency Department on the above date and was hospitalized for further evaluation of their emergent condition. - New Patient This patient is new to me today: Yes Date on this admission: 09/16/17 - Critical Care Critical Care patient: No
[2017-09-16] MEDS: CEFTRIAXONE 2 GM in DEXTROSE 5%-WATER 100 ML IVPB SCH (10:43)
[2017-09-16 10:59] LABS: MACROCYTOSIS 1+; PLATELET ESTIMATE SLT DECREASE
[2017-09-16] MEDS ORDERED: LISINOPRIL 10 MG TABLET (FP) PO ONE (15:16)
[2017-09-16 16:43] LABS: ANION GAP 8 (8-16); BLOOD UREA NITROGEN 13 mg/dL (7-18); CALCIUM 9.8 mg/dL (8.5-10.1); CHLORIDE 105 mmol/L (98-107); CO2 33 mmol/L (21-32); CREATININE 0.7 mg/dL (0.55-1.02); GLUCOSE,RANDOM 155 mg/dL (74-106); MAGNESIUM 1.7 mg/dL (1.8-2.4); PHOSPHOROUS 3.5 mg/dL (2.5-4.9); POTASSIUM 4.2 mmol/L (3.5-5.1); SODIUM 146 mmol/L (136-145)
[2017-09-16] MEDS ORDERED: MAGNESIUM SULF 50% (8.12 MEQ/2 ML-1 GM VIAL) IVPB ONE (17:00)
--- NOTE | 2017-09-16 17:57 | PN ---
Progress Note, Physician History of Present Illness: Reports improvement R flank pain + Polyuria Denies dysuria/ hematuria No c/o fever/ chills Afebrile WBC , plt improved - Current Medication List Current Medications: Active Medications Acetaminophen (Tylenol -) 650 mg PO Q6H PRN PRN Reason: Pain Last Admin: 09/16/17 17:04 Dose: 650 mg Atorvastatin Calcium (Lipitor -) 40 mg PO HS [facility] Last Admin: 09/15/17 21:16 Dose: 40 mg Diltiazem HCl (Cardizem Cd -) 240 mg PO DAILY [facility] Last Admin: 09/16/17 09:20 Dose: 240 mg Diphenhydramine HCl (Benadryl -) 25 mg PO HS [facility] Ceftriaxone Sodium 2 gm/ (Dextrose) 100 mls @ 200 mls/hr IVPB DAILY [facility]; Protocol Last Admin: 09/16/17 10:43 Dose: 200 mls/hr Lisinopril (Prinivil) 20 mg PO DAILY [facility] Ondansetron HCl (Zofran Injection) 4 mg IVPUSH Q6H PRN PRN Reason: NAUSEA AND/OR VOMITING Last Admin: 09/16/17 08:00 Dose: 4 mg Rivaroxaban (Xarelto -) 20 mg PO DAILY@1800 [facility] Last Admin: 09/15/17 17:24 Dose: 20 mg Zolpidem Tartrate (Ambien -) 5 mg PO HS PRN PRN Reason: INSOMNIA Last Admin: 09/15/17 21:17 Dose: 5 mg - Objective Vital Signs: Vital Signs Temperature 97.6 F 09/16/17 15:00 Pulse Rate 88 09/16/17 15:00 Respiratory Rate 20 09/16/17 15:00 Blood Pressure 144/90 09/16/17 15:00 O2 Sat by Pulse Oximetry (%) 90 L 09/16/17 10:00 Constitutional: Yes: No Distress Eyes: Yes: Conjunctiva Clear Cardiovascular: Yes: Regular Rate and Rhythm, S1, S2 Respiratory: Yes: CTA Bilaterally Gastrointestinal: Yes: Normal Bowel Sounds, Soft. No: Tenderness Genitourinary: No: CVA Tenderness - Left, CVA Tenderness - Right Labs: CBC, BMP 09/16/17 05:30 09/16/17 14:30 INR, PTT INR 1.36 (0.83-1.09) H 09/13/17 11:00 Assessment/Plan Gram Negative bacteremia/ sepsis secondary to source Pyelonephritis Thrombocytopenia secondary to sepsis Lactic acidosis- resolved + BC SCN= contaminant Day #4 IV antibiotics Continue ceftriaxone ?PICC for outpatient antibiotic therapy
[2017-09-16] MEDS: RIVAROXABAN 20 MG TABLET PO SCH (18:51)
[2017-09-16] MEDS: ZOLPIDEM TARTRATE 5 MG TABLET PO PRN (21:17)
[2017-09-16] MEDS: ATORVASTATIN CA 40 MG TABLET (FP) PO SCH (21:17)
[2017-09-16] MEDS ORDERED: diphenhydrAMINE HCL 25 MG CAPSULE (FP) PO SCH (22:00)
[2017-09-17] MEDS: ACETAMINOPHEN 325 MG TABLET (FP) PO PRN ×2 (03:23→09:50)
--- NOTE | 2017-09-17 08:31 | PN ---
Progress Note, Physician History of Present Illness: Right flank has resolved, afebrile no further chills, afib rate-controlled. - Current Medication List Current Medications: Active Medications Acetaminophen (Tylenol -) 650 mg PO Q6H PRN PRN Reason: Pain Last Admin: 09/17/17 03:23 Dose: 650 mg Atorvastatin Calcium (Lipitor -) 40 mg PO HS [facility] Last Admin: 09/16/17 21:17 Dose: 40 mg Diltiazem HCl (Cardizem Cd -) 240 mg PO DAILY [facility] Last Admin: 09/16/17 09:20 Dose: 240 mg Diphenhydramine HCl (Benadryl -) 25 mg PO HS [facility] Last Admin: 09/16/17 21:17 Dose: 25 mg Ceftriaxone Sodium 2 gm/ (Dextrose) 100 mls @ 200 mls/hr IVPB DAILY [facility]; Protocol Last Admin: 09/16/17 10:43 Dose: 200 mls/hr Lisinopril (Prinivil) 20 mg PO DAILY [facility] Ondansetron HCl (Zofran Injection) 4 mg IVPUSH Q6H PRN PRN Reason: NAUSEA AND/OR VOMITING Last Admin: 09/16/17 08:00 Dose: 4 mg Rivaroxaban (Xarelto -) 20 mg PO DAILY@1800 [facility] Last Admin: 09/16/17 18:51 Dose: 20 mg - Objective Vital Signs: Vital Signs Temperature 98.9 F 09/17/17 06:00 Pulse Rate 87 09/17/17 06:00 Respiratory Rate 18 09/17/17 06:00 Blood Pressure 177/100 09/17/17 06:00 O2 Sat by Pulse Oximetry (%) 93 L 09/16/17 21:00 Constitutional: Yes: No Distress, Calm Neck: Yes: Supple Cardiovascular: Yes: Pulse Irregular Respiratory: Yes: Regular, CTA Bilaterally Gastrointestinal: Yes: Normal Bowel Sounds, Soft, Abdomen, Obese Edema: No Labs: CBC, BMP 09/16/17 05:30 09/16/17 14:30 INR, PTT INR 1.36 (0.83-1.09) H 09/13/17 11:00 Problem List - Problems (1) S/P coronary artery stent placement Code(s): Z95.5 - PRESENCE OF CORONARY ANGIOPLASTY IMPLANT AND GRAFT (2) Diastolic dysfunction Code(s): I51.9 - HEART DISEASE, UNSPECIFIED (3) Old myocardial infarction Code(s): I25.2 - OLD MYOCARDIAL INFARCTION (4) Coronary artery disease Code(s): I25.10 - ATHSCL HEART DISEASE OF [place] CORONARY ARTERY W/O ANG PCTRS Qualifiers: Coronary Disease-Associated Artery/Lesion type: [place] artery [place] vs. transplanted heart: [place] heart Associated angina: without angina Qualified Code(s): I25.10 - Atherosclerotic heart disease of [place] coronary artery without angina pectoris (5) BERNIE (acute kidney injury) Code(s): N17.9 - ACUTE KIDNEY FAILURE, UNSPECIFIED (6) Atrial fibrillation Code(s): I48.91 - UNSPECIFIED ATRIAL FIBRILLATION Qualifiers: Atrial fibrillation type: persistent Qualified Code(s): I48.1 - Persistent atrial fibrillation (7) Demand ischemia Code(s): I24.8 - OTHER FORMS OF ACUTE ISCHEMIC HEART DISEASE (8) HTN (hypertension) Code(s): I10 - ESSENTIAL (PRIMARY) HYPERTENSION Qualifiers: Hypertension type: essential hypertension Qualified Code(s): I10 - Essential (primary) hypertension (9) Hypercholesterolemia Code(s): E78.00 - PURE HYPERCHOLESTEROLEMIA, UNSPECIFIED (10) Pyelonephritis Code(s): N12 - TUBULO-INTERSTITIAL NEPHRITIS, NOT SPCF ACUTE OR CHRONIC Assessment/Plan 1. Atrial fibrillation with RVR due to pain 2. Nephrolithiasis with right flank pain 3. Pyelonephritis, e. coli sepsis 4. HTN 5. Hypercholesterolemia 6. CAD h/o NSTEMI s/p LCX stent in 2009, demand ischemia 7. Diastolic dysfunction PLAN: 1. Continue Xarelto 20 mg once a day 2. Continue Cardizem CD 240 qd, Lipitor 40 qhs, increase lisinopril 40 qd (home dose) now that renal function improved to baseline & titrate as hemodynamics tolerate 3. Complete antibiotic coverage for pyelonephritis via PICC
[2017-09-17] MEDS ORDERED: DEXTROSE 5%-WATER 100 ML IVPB ONE (09:28)
[2017-09-17] MEDS: CEFTRIAXONE 2 GM in DEXTROSE 5%-WATER 100 ML IVPB SCH (09:51)
[2017-09-17] MEDS ORDERED: LISINOPRIL 20 MG TABLET (FP) PO SCH ×2 (10:00→10:03)
[2017-09-17] MEDS ORDERED: PICC LINE 8 ML FLUSH PROTOCOL IVPUSH PRN (10:39)
--- NOTE | 2017-09-17 11:10 | DS ---
Physical Exam: SUBJECTIVE: Patient seen and examined. C/o left knee pain similar to gout attacks in past OBJECTIVE: Vital Signs Period Temp Pulse Resp BP Sys/[place]ilder Pulse Ox Last 24 Hr 97.6 F-98.9 F 86-94 18-20 144-177/70-103 93 PE Neuro: alert, awake, cn 2-12intact Pulm: clear bases bilaterally, anterior wheeze + nc CV: s1 s2 irregular Abd: s nt nd +bs Ext: Left knee mild swelling, no erythema, no warmth, small area of effusion Laboratory Results - last 24 hr 09/16/17 14:30 Sodium 146 H Potassium 4.2 Chloride 105 Carbon Dioxide 33 H Anion Gap 8 BUN 13 Creatinine 0.7 Creat Clearance w eGFR > 60 Random Glucose 155 H Calcium 9.8 Phosphorus 3.5 Magnesium 1.7 L HOSPITAL COURSE: Date of Admission:09/13/17 Date of Discharge: 09/17/17 Minutes to complete discharge: 36 Discharge Summary Reason For Visit: ACUTE KIDNEY INJURY/ELEVATED TROPONIN LEVEL/PYELON Current Active Problems BERNIE (acute kidney injury) (Acute) Atrial fibrillation (Acute) Coronary artery disease (Acute) Demand ischemia (Acute) Diastolic dysfunction (Acute) HTN (hypertension) (Acute) Hypercholesterolemia (Acute) Old myocardial infarction (Acute) Pyelonephritis (Acute) S/P coronary artery stent placement (Acute) Hospital Course: Initial Hospital Course: Briefly, this 77 year old female with PMHx significant for AFib (on xarelto), CAD (NSTEMI s/p LCX stent in 2009), Kidney stones (R Kidney Stent placed 3 years ago at [place]), HTN, HLD, Gout and CHF presented with Nausea and back pain. Patient had decrease PO intake and been unable to keep anything down since Wednesday. Patient complained of chills that last 2 hours, rigors, cough, fatigue 9/10 R Flank pain, Headache, Urinary urgency and frequency. Patient has noted some blood in the bowl and blood when wiping after urination. She has tried 2 extra strength tylenols that have helped somewhat. She has not had a BM in 2 days Subsequent Hospital Course/Progress Note/ DC summary: Assessment: 77 year old female with PMHx of A.fib (on Xarelto), CAD, NSTEMI 2009 , kidney stones, HTN, hyperlipidemia, gout, chf admitted with nausea, right flank pain. Plan: 1. Sepsis 2/2 E coli UTI, acute pyelonephritis, gram negative bacteremia - Repeat BC negative - Will need at least 7 days IV abx, ceftriaxone 2mg daily - PICC line insertion today for IV home infusion, home nurse 2. BERNIE - Resolved 3. Elevated troponins - Mildly elevated, peaked at 0.06 4. A.fib - Continue Xarelto 20mg po daily - Cardizem CD 240mg daily 5. HTN - Resume home dose lisinopril 40mg daily 6. Left knee pain, swelling, hx of gout - Allopurinol daily at home, was held here - L knee xray neg for acute pathology - Can send home with prednisone 30mg x4days , first dose now - Follow up with ortho if worsens, referral enclosed Dispo: - Home with IV abx infusion - PCP Follow up in 1 week Condition: Stable - Instructions Diet, Activity, Other Instructions: Please return to the ED for any new, persistent, or worsening symptoms. Follow up with your PCP in 1 week Resume home medications as directed Continue antibiotic infusions as directed and until completed Referrals: Ivan Miguel MD [Staff Physician] - Mary Morejon MD [Primary Care Provider] - Bro Garza MD [Staff Physician] - Tru Freedman MD [Staff Physician] - (follow up in 1 week if left knee gout does not improve. may need an aspiration of fluid ) Disposition: VNS/HOME HEALTH CARE - Home Medications Comprehensive Discharge Medication List: Ambulatory Orders Aspirin 81 mg PO DAILY 04/11/17 Atorvastatin Ca [Lipitor] 20 mg PO HS 04/11/17 Lisinopril [Prinivil -] 40 mg PO DAILY 04/11/17 Rivaroxaban [Xarelto -] 20 mg PO DAILY 04/11/17 Allopurinol [Zyloprim -] 100 mg PO DAILY #30 tablet 04/13/17 Diltiazem Cd [Cardizem Cd -] 240 mg PO DAILY #0 cap.cd.24h 04/13/17 Zolpidem Tartrate [Ambien] 10 mg PO HS 09/13/17 This patient is new to me today: No Emergency Visit: Yes ED Registration Date: 09/13/17 Care time: The patient presented to the Emergency Department on the above date and was hospitalized for further evaluation of their emergent condition. Critical Care patient: No - Discharge Referral Referred to [facility] Med P.C.: No
--- NOTE | 2017-09-17 13:48 | PN ---
Progress Note, Physician History of Present Illness: Reports resolution R flank pain Now with L knee pain attributed to gout by pt Denies dysuria/ hematuria No c/o fever/ chills Afebrile WBC , plt improved - Current Medication List Current Medications: Active Medications Acetaminophen (Tylenol -) 650 mg PO Q6H PRN PRN Reason: Pain Last Admin: 09/17/17 09:50 Dose: 650 mg Atorvastatin Calcium (Lipitor -) 40 mg PO HS [facility] Last Admin: 09/16/17 21:17 Dose: 40 mg Diltiazem HCl (Cardizem Cd -) 240 mg PO DAILY [facility] Last Admin: 09/17/17 09:51 Dose: 240 mg Diphenhydramine HCl (Benadryl -) 25 mg PO HS [facility] Last Admin: 09/16/17 21:17 Dose: 25 mg IV Flush (Picc Line Flush) 8 ml IVPUSH PRN PRN PRN Reason: Protocol Ceftriaxone Sodium 2 gm/ (Dextrose) 100 mls @ 200 mls/hr IVPB DAILY [facility]; Protocol Last Admin: 09/17/17 09:51 Dose: 200 mls/hr Lisinopril (Prinivil) 40 mg PO DAILY [facility] Ondansetron HCl (Zofran Injection) 4 mg IVPUSH Q6H PRN PRN Reason: NAUSEA AND/OR VOMITING Last Admin: 09/16/17 08:00 Dose: 4 mg Rivaroxaban (Xarelto -) 20 mg PO DAILY@1800 [facility] Last Admin: 09/16/17 18:51 Dose: 20 mg - Objective Vital Signs: Vital Signs Temperature 98.7 F 09/17/17 10:03 Pulse Rate 94 H 09/17/17 10:03 Respiratory Rate 18 09/17/17 09:00 Blood Pressure 148/103 09/17/17 10:03 O2 Sat by Pulse Oximetry (%) 95 09/17/17 09:00 Constitutional: Yes: No Distress Cardiovascular: Yes: Regular Rate and Rhythm, S1, S2 Respiratory: Yes: CTA Bilaterally Gastrointestinal: Yes: Normal Bowel Sounds, Soft. No: Tenderness Genitourinary: No: CVA Tenderness - Left, CVA Tenderness - Right Extremities: Yes: Other (L knee swelling No erythema/ tenderness) Labs: CBC, BMP 09/16/17 05:30 09/16/17 14:30 INR, PTT INR 1.36 (0.83-1.09) H 09/13/17 11:00 Assessment/Plan Gram Negative bacteremia/ sepsis secondary to source Pyelonephritis Thrombocytopenia secondary to sepsis Lactic acidosis- resolved + BC SCN= contaminant Continue ceftriaxone 2gm IVPB q24h via PICC x 7d
[2017-09-17] MEDS ORDERED: predniSONE 10 MG TABLET (UD) PO ONE (16:00)
[2017-09-17] MEDS: RIVAROXABAN 20 MG TABLET PO SCH ×2 (16:00→17:51)
[2017-09-17 18:08] VITALS: BP 140/78; PULSE 96; TEMP 97.8
== END 2017-09-17 18:06 | disposition home health service (06) | DRG 872 ==
LOC: JER 10:15 → JERBED 16:04 → J4W 09-14 16:55
PROVIDERS: ADMIT Hospitalist; ATTEND Nurse Practitioner Acute Care
DX: A41.51 Sepsis due to Escherichia coli [E. coli] (principal); N10 Acute pyelonephritis; N17.9 Acute kidney failure, unspecified; E87.2 Acidosis; I24.8 Other forms of acute ischemic heart disease; I11.0 Hypertensive heart disease with heart failure; I25.10 Atherosclerotic heart disease of native coronary artery without angina pectoris; I50.9 Heart failure, unspecified; I48.2 Chronic atrial fibrillation; E78.5 Hyperlipidemia, unspecified; Z95.5 Presence of coronary angioplasty implant and graft; Z79.01 Long term (current) use of anticoagulants; I25.2 Old myocardial infarction; E66.9 Obesity, unspecified; Z68.30 Body mass index [BMI] 30.0-30.9, adult; K40.90 Unilateral inguinal hernia, without obstruction or gangrene, not specified as recurrent; E86.1 Hypovolemia; M10.9 Gout, unspecified; F17.210 Nicotine dependence, cigarettes, uncomplicated; M25.562 Pain in left knee
CPT/HCPCS: 36415; 36569; 71045-TC-FY; 73562-TC-LT-FY; 74176; 77001-TC-FY; 80048; 80053; 81003; 81015; 82272; 82550; 83605; 83735; 84100; 84484; 85025; 85610; 87040; 87077; 87086; 87186; 93005; 93010; 94640; 97116-GP; 97161-GP; 99285-25; C1751; J0131; J7030; J7620

== ENCOUNTER 2021-11-16 20:03 | Emergency (ER) | payer OTHER ==
[2021-11-16 20:19] VITALS: BP 178/86; PULSE 54; RESP 18; TEMP 97.3; BMI 27.4
[2021-11-16] MEDS ORDERED: ACETAMINOPHEN 500 MG TABLET (FP) PO ONE (20:30)
[2021-11-16] MEDS ORDERED: LIDOCAINE 5% TOPICAL PATCH TP ONE (21:01)
[2021-11-16] MEDS ORDERED: METOCLOPRAMIDE HCL INJECTION 10 MG/2 ML VIAL IVPUSH ONE (21:08)
[2021-11-16] MEDS ORDERED: LIDOCAINE 5% TOPICAL PATCH ONE (21:20)
[2021-11-16] MEDS ORDERED: METOCLOPRAMIDE HCL INJECTION 10 MG/2 ML VIAL ONE (21:20)
[2021-11-16 21:29] LABS: CALCIUM 9.7 mg/dL (8.5-10.1)
[2021-11-16 21:31] LABS: ALBUMIN 3.6 g/dl (3.4-5.0); BASO % 0.3 % (0-2.0); BLOOD UREA NITROGEN 11.1 mg/dL (7-18); EOS % 0.2 % (0-4.5); HEMATOCRIT 40.8 % (32.4-45.2); HEMOGLOBIN 13.5 GM/dL (10.7-15.3); LYMPH % 19.1 % (8-40); MCH 35.7 pg (25.7-33.7); MCHC 33.1 g/dl (32.0-36.0); MEAN PLT VOLUME 7.2 fl (7.5-11.1); MONO % 27.7 % (3.8-10.2); NEUT % 52.7 % (42.8-82.8); PLATELET COUNT 148 10^3/uL (134-434); RBC 3.78 M/mm3 (3.60-5.2); RDW 14.8 % (11.6-15.6); WHITE BLOOD COUNT 4.4 K/mm3 (4.0-10.0)
[2021-11-16 21:33] LABS: CREATININE 0.6 mg/dL (0.55-1.3)
[2021-11-16 21:34] LABS: BILIRUBIN,TOTAL 0.4 mg/dL (0.2-1); EPI CELLS 15 /uL (0-25.1); HYALINE CASTS 2 /uL (0-3.1); URINE APPEARANCE TURBID; URINE BACTERIA 49 /uL (0-1359); URINE BILIRUBIN 1+ (NEGATIVE); URINE COLOR RED; URINE GLUCOSE (UA) NEGATIVE (NEGATIVE); URINE KETONE NEGATIVE (NEGATIVE); URINE LEUK ESTERASE 1+ (NEGATIVE); URINE NITRITE NEGATIVE (NEGATIVE); URINE PROTEIN 3+ (NEGATIVE); URINE RBC 24147 /uL (0-23.9); URINE UROBILINOGEN 0.2 mg/dL (0.2-1.0); URINE WBC 59 /uL (0-25.8)
[2021-11-16 21:35] LABS: TOT PROT 6.7 g/dl (6.4-8.2)
[2021-11-16 21:39] LABS: INR 1.75 (0.83-1.09); PROTHROMBIN TIME (PATIENT) 20.2 SEC (9.7-13.0)
[2021-11-16] MEDS ORDERED: IBUPROFEN 600 MG TABLET (FP) PO ONE (21:56)
[2021-11-16] MEDS ORDERED: IBUPROFEN 400 MG TABLET (FP) PO ONE (21:59)
[2021-11-16] MEDS ORDERED: LIDOCAINE PATCH REMOVAL MC SCH (22:00)
[2021-11-16 22:09] LABS: ANISOCYTOSIS 2+; MACROCYTOSIS 0; OVALOCYTE 1+
== END 2021-11-16 22:41 | disposition home or self-care (01) ==
LOC: JER 20:03
DX: M54.9 Dorsalgia, unspecified (principal); R31.9 Hematuria, unspecified
CPT/HCPCS: 36415; 80053; 81003; 85025; 85610; 85730; 86850; 86900; 86901; 87086; 99284-25

== ENCOUNTER → 2021-12-03 | Day surgery (SDC) | payer OTHER ==
[2021-12-01 12:10] VITALS: BMI 27.4
[~2021-12-03] MED LIST: ACETAMINOPHEN INJECTION 100 ML IVPB ONE; IBUPROFEN 800 MG/8 ML IJ IVPB ONE; ONDANSETRON 4 MG/2 ML VIAL ONE
== END | disposition home or self-care (01) ==
LOC: JASU-SURG 04:08
PROVIDERS: ATTEND Urology
DX: Z53.8 Procedure and treatment not carried out for other reasons (principal)

== ENCOUNTER 2021-12-08 04:22 | Day surgery (SDC) | payer OTHER ==
[2021-12-05 17:34] VITALS: BMI 27.4
[2021-12-08] MEDS ORDERED: LIDOCAINE HCL/PF 2% SDV 5ML VIAL ONE (14:31)
[2021-12-08] MEDS ORDERED: ceFAZolin SODIUM 1 GM VIAL IVPB ONE (14:34)
[2021-12-08] MEDS ORDERED: ceFAZolin SODIUM 1 GM VIAL ONE (14:36)
[2021-12-08] MEDS ORDERED: ONDANSETRON 4 MG/2 ML VIAL IVPUSH PRN (15:26)
[2021-12-08] MEDS ORDERED: ACETAMINOPHEN 1000 MG/100 ML BAG IVPB ONE (16:22)
[2021-12-08 17:09] VITALS: TEMP 97.6
[2021-12-08 17:26] VITALS: RESP 20
[2021-12-08] MEDS ORDERED: oxyCODONE HCL 5 MG TABLET PO PRN (18:13)
[2021-12-08] MEDS ORDERED: IBUPROFEN 800 MG/8 ML IJ IVPB PRN (18:13)
[2021-12-08 19:30] VITALS: BP 180/91; PULSE 76
== END 2021-12-08 18:55 | disposition home or self-care (01) ==
LOC: JASU-SURG 04:22
PROVIDERS: ATTEND Urology
PROC: 0TC48ZZ Extirpation of Matter from Left Kidney Pelvis, Via Natural or Artificial Opening Endoscopic (ICD-10-PCS; principal; 2021-12-08 13:00)
PROC: 0T778DZ Dilation of Left Ureter with Intraluminal Device, Via Natural or Artificial Opening Endoscopic (ICD-10-PCS; 2021-12-08 13:00)
PROC: BT1FYZZ Fluoroscopy of Left Kidney, Ureter and Bladder using Other Contrast (ICD-10-PCS; 2021-12-08 13:00)
DX: N20.0 Calculus of kidney (principal); N39.0 Urinary tract infection, site not specified
CPT/HCPCS: 76000-TC-FY; 94760; C1758; C1769; C2617

== ENCOUNTER → 2022-03-23 | Emergency (ER) | payer OTHER ==
[~2022-03-23] MED LIST changes: +ACETAMINOPHEN 1000 MG/100 ML BAG IVPB ONE; -IBUPROFEN 800 MG/8 ML IJ IVPB ONE; +LACTATED RINGERS SOLUTION 1000 ML INFUS.BAG IV ONE; -ONDANSETRON 4 MG/2 ML VIAL ONE; +morphine CARPU-JECT 2 MG/1 ML DISP.SYRIN IVPUSH ONE; +morphine CARPU-JECT 4 MG/1 ML DISP.SYRIN IVPUSH ONE; +morphine SULFATE 4 MG/ML VIAL ONE
[2022-03-23 14:17] VITALS: RESP 18; BMI 29.2
[2022-03-23 15:56] LABS: HEMATOCRIT 32.4 % (32.4-45.2); HEMOGLOBIN 10.9 GM/dL (10.7-15.3); MCH 33.8 pg (25.7-33.7); MCHC 33.6 g/dl (32.0-36.0); MEAN CELL VOLUME 100.6 fl (80-96); MEAN PLT VOLUME 6.6 fl (7.5-11.1); PLATELET COUNT 145 10^3/uL (134-434); RBC 3.22 M/mm3 (3.60-5.2); RDW 16.1 % (11.6-15.6); WHITE BLOOD COUNT 4.8 K/mm3 (4.0-10.0)
[2022-03-23 16:02] LABS: INR 1.24 (0.83-1.09); PROTHROMBIN TIME (PATIENT) 14.4 SEC (9.7-13.0)
[2022-03-23 16:04] LABS: ACTIVATED PTT 35.8 SECONDS (25.2-36.5)
[2022-03-23 16:23] LABS: CHLORIDE 103 mmol/L (98-107); SODIUM 140 mmol/L (136-145)
[2022-03-23 16:27] LABS: CALCIUM 10.6 mg/dL (8.5-10.1)
[2022-03-23 16:28] LABS: ALBUMIN 3.7 g/dl (3.4-5.0); ANION GAP 9 MMOL/L (8-16); ANISOCYTOSIS 0; BLOOD UREA NITROGEN 20.4 mg/dL (7-18); CO2 29 mmol/L (21-32); GLUCOSE,RANDOM 102 mg/dL (74-106); HELMET CELLS 0; HOWELL-JOLLY BODIES 0; MACROCYTOSIS 0; OVALOCYTE 0; ROULEAU 0; SICKELED CELLS 0; TARGET CELLS 0; TEAR DROP CELLS 0; TOXIC GRANULATION 0
[2022-03-23 16:30] LABS: SGOT/AST 20 U/L (15-37); SGPT/ALT 34 U/L (13-61)
[2022-03-23 16:33] LABS: TOT PROT 6.9 g/dl (6.4-8.2)
[2022-03-23 16:34] LABS: ALK PHOS 151 U/L (45-117)
[2022-03-23 21:54] VITALS: PULSE 99
[2022-03-23 22:31] VITALS: BP 143/72; TEMP 98.6
== END | disposition admitted as inpatient to this hospital (09) ==
LOC: JER 13:38
PROC: 3E033GC Introduction of Other Therapeutic Substance into Peripheral Vein, Percutaneous Approach (ICD-10-PCS; principal; 2022-03-23)
DX: I48.91 Unspecified atrial fibrillation (principal); R07.9 Chest pain, unspecified; M54.89 Other dorsalgia; W01.0XXA Fall on same level from slipping, tripping and stumbling without subsequent striking against object, initial encounter
CPT/HCPCS: 0241U-QW; 36415; 70450-TC; 71260-TC; 72125-TC; 72128-TC; 72131-TC; 73130-TC-RT-FY; 74177-TC; 80053; 80307; 84484; 85025; 85610; 85730; 93005; 93010; 99285-25; Q9967

== ENCOUNTER 2022-11-08 11:29 | Inpatient (IN) | payer OTHER ==
[2022-11-08] MEDS ORDERED: ACETAMINOPHEN 1000 MG/100 ML BAG IVPB ONE ×2 (13:12→20:39)
[2022-11-08] MEDS ORDERED: ACETAMINOPHEN INJECTION 100 ML IVPB ONE ×2 (13:24→20:42)
[2022-11-08 13:35] LABS: HEMOGLOBIN 11.9 GM/dL (10.7-15.3); MCH 30.9 pg (25.7-33.7); MCHC 32.1 g/dl (32.0-36.0); MEAN CELL VOLUME 96.3 fl (80-96); PLATELET COUNT 198 10^3/uL (134-434); RBC 3.84 M/mm3 (3.60-5.2); RDW 18.1 % (11.6-15.6); WHITE BLOOD COUNT 4.7 K/mm3 (4.0-10.0)
[2022-11-08 14:13] LABS: ALBUMIN 3.8 g/dl (3.4-5.0); BILIRUBIN,TOTAL 0.6 mg/dL (0.2-1); BLOOD UREA NITROGEN 13.8 mg/dL (7-18); CALCIUM 9.9 mg/dL (8.5-10.1); CREATININE 0.7 mg/dL (0.55-1.3); MAGNESIUM 1.9 mg/dL (1.8-2.4); N-TERMINAL BNP 2914.9 pg/ml (5-450); POTASSIUM 3.9 mmol/L (3.5-5.1); TOT PROT 6.9 g/dl (6.4-8.2)
[2022-11-08] MEDS ORDERED: morphine CARPU-JECT 2 MG/1 ML DISP.SYRIN IVPUSH ONE ×2 (14:27→17:40)
[2022-11-08 14:40] LABS: ANISOCYTOSIS 1+; MACROCYTOSIS 0; OVALOCYTE 1+
[2022-11-08] MEDS ORDERED: FUROSEMIDE 40 MG/4 ML INJECTABLE VIAL IVPUSH ONE (17:58)
[2022-11-08] MEDS ORDERED: FUROSEMIDE 40 MG/4 ML INJECTABLE VIAL ONE (18:04)
[2022-11-08] MEDS: RIVAROXABAN 20 MG TABLET PO SCH (21:21)
[2022-11-08] MEDS: ATORVASTATIN CA 20 MG TABLET (FP) PO SCH (22:15)
[2022-11-08] MEDS: oxyCODONE HCL 5 MG TABLET PO PRN (22:15)
[2022-11-08] MEDS: ZOLPIDEM TARTRATE 5 MG TABLET PO PRN (22:15)
[2022-11-09] MEDS: oxyCODONE HCL 5 MG TABLET PO PRN ×3 (06:33→21:39)
[2022-11-09] MEDS ORDERED: ASPIRIN COATED 81 MG TABLET.EC PO SCH (10:00)
[2022-11-09] MEDS: LISINOPRIL 20 MG TABLET PO SCH (10:11)
[2022-11-09] MEDS: ALLOPURINOL 300 MG TABLET (FP) PO SCH (10:12)
[2022-11-09] MEDS ORDERED: oxyCODONE HCL 5 MG TABLET PO PRN (13:55)
[2022-11-09] MEDS: ACETAMINOPHEN 325 MG TABLET (FP) PO PRN ×2 (14:11→20:30)
[2022-11-09] MEDS ORDERED: FUROSEMIDE 40 MG/4 ML INJECTABLE VIAL IVPUSH ONE (14:12)
[2022-11-09] MEDS ORDERED: LIDOCAINE 4% PATCH TP ONE (14:14)
[2022-11-09 14:21] LABS: EPI CELLS 29 /uL (0-25.1); HYALINE CASTS 1 /uL (0-3.1); PH,URINE 5.5 (5.0-8.0); URINE APPEARANCE TURBID; URINE BACTERIA 426 /uL (0-1359); URINE BILIRUBIN 2+ (NEGATIVE); URINE COLOR ORANGE; URINE GLUCOSE (UA) NEGATIVE (NEGATIVE); URINE KETONE NEGATIVE (NEGATIVE); URINE LEUK ESTERASE 2+ (NEGATIVE); URINE NITRITE NEGATIVE (NEGATIVE); URINE PROTEIN 3+ (NEGATIVE); URINE WBC 2545 /uL (0-25.8)
[2022-11-09 14:48] LABS: URINE RBC 20046 /uL (0-23.9); YEAST NONE SEEN (NEGATIVE)
[2022-11-09] MEDS: RIVAROXABAN 20 MG TABLET PO SCH (17:21)
[2022-11-09] MEDS: ATORVASTATIN CA 20 MG TABLET (FP) PO SCH (21:01)
[2022-11-09] MEDS: ZOLPIDEM TARTRATE 5 MG TABLET PO PRN (21:01)
[2022-11-09] MEDS ORDERED: LIDOCAINE PATCH REMOVAL MC ONE (22:00)
[2022-11-10] MEDS: oxyCODONE HCL 5 MG TABLET PO PRN (09:03)
[2022-11-10] MEDS: LISINOPRIL 20 MG TABLET PO SCH (09:04)
[2022-11-10] MEDS: ALLOPURINOL 300 MG TABLET (FP) PO SCH (09:04)
[2022-11-10 09:07] LABS: HEMATOCRIT 36.4 % (32.4-45.2); HEMOGLOBIN 12.3 GM/dL (10.7-15.3); MCH 31.6 pg (25.7-33.7); MCHC 33.8 g/dl (32.0-36.0); MEAN CELL VOLUME 93.4 fl (80-96); MEAN PLT VOLUME 7.6 fl (7.5-11.1); PLATELET COUNT 188 10^3/uL (134-434); RDW 17.7 % (11.6-15.6); WHITE BLOOD COUNT 5.4 K/mm3 (4.0-10.0)
[2022-11-10 09:22] LABS: POTASSIUM 3.8 mmol/L (3.5-5.1)
[2022-11-10 09:33] LABS: ANISOCYTOSIS 0; HELMET CELLS 0; HOWELL-JOLLY BODIES 0; MACROCYTOSIS 0; OVALOCYTE 0; ROULEAU 0; SICKELED CELLS 0; TARGET CELLS 0; TEAR DROP CELLS 0; TOXIC GRANULATION 0
[2022-11-10 09:37] LABS: BLOOD UREA NITROGEN 19.4 mg/dL (7-18); CALCIUM 9.6 mg/dL (8.5-10.1)
[2022-11-10 09:41] LABS: CREATININE 0.8 mg/dL (0.55-1.3)
[2022-11-10] MEDS ORDERED: CYCLOBENZAPRINE HCL 5 MG TABLET PO ONE (13:45)
[2022-11-10] MEDS: CEFTRIAXONE 1 GM in DEXTROSE 5%-WATER - 50 ML IVPB SCH (15:15)
[2022-11-10] MEDS: RIVAROXABAN 20 MG TABLET PO SCH (17:30)
[2022-11-10] MEDS: ACETAMINOPHEN 325 MG TABLET (FP) PO PRN (17:30)
[2022-11-10] MEDS: ZOLPIDEM TARTRATE 5 MG TABLET PO PRN (21:16)
[2022-11-10] MEDS: ATORVASTATIN CA 20 MG TABLET (FP) PO SCH (21:16)
[2022-11-11] MEDS: FUROSEMIDE 40 MG/4 ML INJECTABLE VIAL IVPUSH SCH ×2 (06:20→14:59)
[2022-11-11] MEDS: ACETAMINOPHEN 325 MG TABLET (FP) PO PRN ×2 (06:22→19:59)
[2022-11-11 08:12] LABS: CALCIUM 9.7 mg/dL (8.5-10.1)
[2022-11-11 08:14] LABS: ALBUMIN 3.7 g/dl (3.4-5.0)
[2022-11-11 08:16] LABS: CREATININE 0.7 mg/dL (0.55-1.3)
[2022-11-11 08:17] LABS: TOT PROT 6.8 g/dl (6.4-8.2)
[2022-11-11 08:18] LABS: BILIRUBIN,TOTAL 0.5 mg/dL (0.2-1)
[2022-11-11] MEDS: LISINOPRIL 20 MG TABLET PO SCH (10:13)
[2022-11-11] MEDS: CEFTRIAXONE 1 GM in DEXTROSE 5%-WATER - 50 ML IVPB SCH (10:13)
[2022-11-11] MEDS: ALLOPURINOL 300 MG TABLET (FP) PO SCH (10:13)
[2022-11-11 12:37] VITALS: BMI 26.4
[2022-11-11] MEDS: oxyCODONE HCL 5 MG TABLET PO PRN (13:00)
[2022-11-11] MEDS: CYCLOBENZAPRINE HCL 5 MG TABLET PO SCH ×2 (14:59→21:09)
[2022-11-11] MEDS: RIVAROXABAN 20 MG TABLET PO SCH (17:00)
[2022-11-11] MEDS: ATORVASTATIN CA 20 MG TABLET (FP) PO SCH (21:09)
[2022-11-11] MEDS: ZOLPIDEM TARTRATE 5 MG TABLET PO PRN (21:09)
[2022-11-12 06:07] VITALS: RESP 18
[2022-11-12] MEDS: CYCLOBENZAPRINE HCL 5 MG TABLET PO SCH ×2 (06:09→13:47)
[2022-11-12] MEDS: FUROSEMIDE 40 MG/4 ML INJECTABLE VIAL IVPUSH SCH ×2 (06:09→14:00)
[2022-11-12 07:26] LABS: EPI CELLS 24 /uL (0-25.1); HYALINE CASTS 0 /uL (0-3.1); PH,URINE 6.5 (5.0-8.0); URINE APPEARANCE CLEAR; URINE BACTERIA 2 /uL (0-1359); URINE BILIRUBIN NEGATIVE (NEGATIVE); URINE COLOR YELLOW; URINE GLUCOSE (UA) NEGATIVE (NEGATIVE); URINE KETONE NEGATIVE (NEGATIVE); URINE LEUK ESTERASE NEGATIVE (NEGATIVE); URINE NITRITE NEGATIVE (NEGATIVE); URINE PROTEIN TRACE (NEGATIVE); URINE RBC 1934 /uL (0-23.9); URINE UROBILINOGEN 0.2 mg/dL (0.2-1.0); URINE WBC 18 /uL (0-25.8)
[2022-11-12] MEDS: oxyCODONE HCL 5 MG TABLET PO PRN (08:03)
[2022-11-12] MEDS: CEFTRIAXONE 1 GM in DEXTROSE 5%-WATER - 50 ML IVPB SCH (10:30)
[2022-11-12] MEDS: LISINOPRIL 20 MG TABLET PO SCH (10:31)
[2022-11-12] MEDS: ALLOPURINOL 300 MG TABLET (FP) PO SCH (10:31)
[2022-11-12] MEDS: ACETAMINOPHEN 325 MG TABLET (FP) PO PRN (10:41)
[2022-11-12 13:46] VITALS: BP 112/62; PULSE 88; TEMP 98.2
== END 2022-11-12 17:13 | disposition home or self-care (01) | DRG 291 ==
LOC: JER 11:29 → JERBED 15:52 → J4W 22:04 → OBSVTOIN 11-10 13:54
PROVIDERS: ADMIT Internal Medicine; ATTEND Internal Medicine
DX: I11.0 Hypertensive heart disease with heart failure (principal); I50.33 Acute on chronic diastolic (congestive) heart failure; I48.20 Chronic atrial fibrillation, unspecified; I24.8 Other forms of acute ischemic heart disease; N39.0 Urinary tract infection, site not specified; E78.5 Hyperlipidemia, unspecified; I43 Cardiomyopathy in diseases classified elsewhere; I25.10 Atherosclerotic heart disease of native coronary artery without angina pectoris; M54.50 Low back pain, unspecified; M10.9 Gout, unspecified; M06.8A Other specified rheumatoid arthritis, other specified site; R79.89 Other specified abnormal findings of blood chemistry; I25.2 Old myocardial infarction; R80.8 Other proteinuria; N28.1 Cyst of kidney, acquired; M62.838 Other muscle spasm; B96.20 Unspecified Escherichia coli [E. coli] as the cause of diseases classified elsewhere; Z95.5 Presence of coronary angioplasty implant and graft
CPT/HCPCS: 36415; 71045-TC-FY; 72125-TC; 76775-TC; 80048; 80053; 81003; 82570; 83735; 83880; 84156; 84484; 85025; 85379; 87086; 87186; 93005; 93010; 93306-TC; 94761; 97116-GP; 97162-GP; 99285-25; G0378

== ENCOUNTER 2023-09-21 10:33 | Emergency (ER) | payer OTHER ==
[2023-09-21 10:40] VITALS: BP 123/84; PULSE 81; RESP 18; TEMP 98.3; BMI 25.7
[2023-09-21] MEDS ORDERED: ACETAMINOPHEN INJECTION 100 ML IVPB ONE (11:59)
[2023-09-21] MEDS ORDERED: METOCLOPRAMIDE HCL INJECTION 10 MG/2 ML VIAL ONE (11:59)
[2023-09-21] MEDS: ACETAMINOPHEN 1000 MG/100 ML BAG IVPB ONE (12:06)
[2023-09-21] MEDS: METOCLOPRAMIDE HCL INJECTION 10 MG/2 ML VIAL IVPB ONE (12:07)
[2023-09-21] MEDS: SODIUM CHLORIDE 1,000 ML IV STA (12:07)
[2023-09-21 12:15] LABS: HEMATOCRIT 28.5 % (32.4-45.2); HEMOGLOBIN 8.9 GM/dL (10.7-15.3); MCH 27.7 pg (25.7-33.7); MCHC 31.2 g/dl (32.0-36.0); MEAN CELL VOLUME 88.8 fl (80-96); MEAN PLT VOLUME 8.1 fl (7.5-11.1); PLATELET COUNT 135 10^3/uL (134-434); RDW 19.8 % (11.6-15.6); WHITE BLOOD COUNT 4.9 K/mm3 (4.0-10.0)
[2023-09-21 12:32] LABS: ACTIVATED PTT 44.5 SECONDS (25.2-36.5); INR 2.01 (0.83-1.09); PROTHROMBIN TIME (PATIENT) 22.6 SEC (9.7-13.0)
[2023-09-21 12:36] LABS: POTASSIUM 4.1 mmol/L (3.5-5.1)
[2023-09-21 12:40] LABS: CALCIUM 10.1 mg/dL (8.5-10.1)
[2023-09-21 12:41] LABS: ALBUMIN 3.8 g/dl (3.4-5.0); BLOOD UREA NITROGEN 12.9 mg/dL (7-18)
[2023-09-21 13:09] LABS: CREATININE 0.6 mg/dL (0.55-1.3)
[2023-09-21 13:11] LABS: TOT PROT 6.9 g/dl (6.4-8.2)
[2023-09-21 13:23] LABS: ANISOCYTOSIS 3+; MACROCYTOSIS 0
[2023-09-21 13:53] LABS: EPI CELLS 15 /uL (0-25.1); HYALINE CASTS 0 /uL (0-3.1); URINE APPEARANCE CLOUDY; URINE BACTERIA >9,000 /uL (0-1359); URINE BILIRUBIN NEGATIVE (NEGATIVE); URINE COLOR RED; URINE GLUCOSE (UA) NEGATIVE (NEGATIVE); URINE KETONE NEGATIVE (NEGATIVE); URINE LEUK ESTERASE TRACE (NEGATIVE); URINE NITRITE NEGATIVE (NEGATIVE); URINE PROTEIN 2+ (NEGATIVE); URINE RBC 12137 /uL (0-23.9); URINE WBC 36 /uL (0-25.8)
[2023-09-21] MEDS ORDERED: CEFTRIAXONE 1 GM/50 ML BAG ONE (14:12)
[2023-09-21] MEDS: CEFTRIAXONE 1 GM in DEXTROSE 5%-WATER - 100 ML IVPB ONE (14:23)
== END 2023-09-21 15:04 | disposition home or self-care (01) ==
LOC: JER 10:33
PROC: 3E03329 Introduction of Other Anti-infective into Peripheral Vein, Percutaneous Approach (ICD-10-PCS; principal; 2023-09-21)
PROC: 3E033NZ Introduction of Analgesics, Hypnotics, Sedatives into Peripheral Vein, Percutaneous Approach (ICD-10-PCS; 2023-09-21)
PROC: 3E033GC Introduction of Other Therapeutic Substance into Peripheral Vein, Percutaneous Approach (ICD-10-PCS; 2023-09-21)
PROC: 3E0337Z Introduction of Electrolytic and Water Balance Substance into Peripheral Vein, Percutaneous Approach (ICD-10-PCS; 2023-09-21)
DX: N39.0 Urinary tract infection, site not specified (principal); R07.89 Other chest pain; R10.13 Epigastric pain; R11.0 Nausea; M54.6 Pain in thoracic spine; R51.9 Headache, unspecified; G89.29 Other chronic pain; R31.9 Hematuria, unspecified; Z20.822 Contact with and (suspected) exposure to COVID-19
CPT/HCPCS: 0241U-QW; 36415; 70450-TC; 71045-TC-FY; 80053; 81003; 83690; 84484; 85025; 85610; 85730; 87086; 87186; 93005; 93010; 99285-25; J0131

== ENCOUNTER 2023-11-07 07:09 | Inpatient (IN) | payer OTHER ==
[2023-11-07] MEDS ORDERED: LIDOCAINE 5% TOPICAL PATCH ONE (08:14)
[2023-11-07] MEDS ORDERED: ACETAMINOPHEN 325 MG TABLET (FP) ONE (08:14)
[2023-11-07] MEDS: ACETAMINOPHEN 325 MG TABLET (FP) PO ONE (08:27)
[2023-11-07] MEDS: LIDOCAINE 5% TOPICAL PATCH TP ONE (08:27)
[2023-11-07 08:32] LABS: BASO % 0.1 % (0-2.0); EOS % 0.1 % (0-4.5); HEMATOCRIT 27.2 % (32.4-45.2); HEMOGLOBIN 8.4 GM/dL (10.7-15.3); LYMPH % 4.3 % (8-40); MCH 26.7 pg (25.7-33.7); MCHC 30.7 g/dl (32.0-36.0); MEAN CELL VOLUME 86.8 fl (80-96); MEAN PLT VOLUME 7.3 fl (7.5-11.1); MONO % 18.1 % (3.8-10.2); NEUT % 77.4 % (42.8-82.8); PLATELET COUNT 224 10^3/uL (134-434); RBC 3.13 M/mm3 (3.60-5.2); RDW 19.8 % (11.6-15.6)
[2023-11-07 08:53] LABS: ALBUMIN 2.9 g/dl (3.4-5.0); BLOOD UREA NITROGEN 10.3 mg/dL (7-18); CALCIUM 9.4 mg/dL (8.5-10.1)
[2023-11-07 08:57] LABS: CREATININE 0.7 mg/dL (0.55-1.3)
[2023-11-07 08:58] LABS: BILIRUBIN,TOTAL 0.5 mg/dL (0.2-1); TOT PROT 6.3 g/dl (6.4-8.2)
[2023-11-07] MEDS ORDERED: MORPHINE SULFATE 2 MG/ML SYRINGE ONE (10:56)
[2023-11-07] MEDS: morphine CARPU-JECT 2 MG/1 ML DISP.SYRIN IVPUSH ONE (11:07)
[2023-11-07] MEDS ORDERED: morphine SULFATE 4 MG/ML VIAL ONE (12:35)
[2023-11-07] MEDS: morphine CARPU-JECT 4 MG/1 ML DISP.SYRIN IVPUSH ONE (12:40)
[2023-11-07] MEDS ORDERED: FUROSEMIDE 40 MG TABLET (FP) ONE (13:42)
[2023-11-07] MEDS ORDERED: LISINOPRIL 20 MG TABLET ONE (13:43)
[2023-11-07] MEDS: FUROSEMIDE 40 MG TABLET (FP) PO SCH (13:49)
[2023-11-07] MEDS: LISINOPRIL 20 MG TABLET PO SCH (13:49)
[2023-11-07] MEDS ORDERED: ACETAMINOPHEN 500 MG TABLET (FP) ONE (15:51)
[2023-11-07] MEDS: ACETAMINOPHEN 500 MG TABLET (FP) PO PRN (16:00)
[2023-11-07] MEDS ORDERED: ONDANSETRON 4 MG/2 ML VIAL ONE (16:23)
[2023-11-07] MEDS: ONDANSETRON 4 MG/2 ML VIAL IVPUSH PRN (16:30)
[2023-11-07] MEDS: RIVAROXABAN 20 MG TABLET PO SCH (17:33)
[2023-11-07] MEDS: oxyCODONE HCL 5 MG TABLET PO PRN (20:32)
[2023-11-07] MEDS: ZOLPIDEM TARTRATE 5 MG TABLET PO PRN (21:41)
[2023-11-07] MEDS: ATORVASTATIN CA 40 MG TABLET (FP) PO SCH (21:41)
[2023-11-07] MEDS: LIDOCAINE PATCH REMOVAL MC ONE (21:56)
[2023-11-07 23:43] VITALS: BMI 25.8
[2023-11-09] MEDS: ACETAMINOPHEN 500 MG TABLET (FP) PO PRN (04:48)
[2023-11-09] MEDS: ALBUTEROL SO4 2.5/IPRATROPIUM 0.5 INH SOL 3 ML VIAL.NEB. NEB SCH (09:00)
[2023-11-09 09:06] LABS: HEMATOCRIT 25.9 % (32.4-45.2); HEMOGLOBIN 7.9 GM/dL (10.7-15.3); MCH 26.6 pg (25.7-33.7); MCHC 30.3 g/dl (32.0-36.0); MEAN CELL VOLUME 87.9 fl (80-96); MEAN PLT VOLUME 7.1 fl (7.5-11.1); PLATELET COUNT 176 10^3/uL (134-434); RBC 2.95 M/mm3 (3.60-5.2); RDW 20.5 % (11.6-15.6); WHITE BLOOD COUNT 7.2 K/mm3 (4.0-10.0)
[2023-11-09 09:16] LABS: POTASSIUM 4.2 mmol/L (3.5-5.1)
[2023-11-09 09:30] LABS: ALBUMIN 2.6 g/dl (3.4-5.0); BLOOD UREA NITROGEN 15.3 mg/dL (7-18); CALCIUM 9.3 mg/dL (8.5-10.1); MAGNESIUM 1.8 mg/dL (1.8-2.4)
[2023-11-09] MEDS: POLYETHYLENE GLYCOL (HEALTHYLAX) 3350 17 GM PACKET PO SCH (09:31)
[2023-11-09 09:33] LABS: CREATININE 0.7 mg/dL (0.55-1.3); PHOSPHOROUS 2.5 mg/dL (2.5-4.9)
[2023-11-09 09:34] LABS: BILIRUBIN,TOTAL 0.6 mg/dL (0.2-1); TOT PROT 5.8 g/dl (6.4-8.2)
[2023-11-09 10:52] LABS: ANISOCYTOSIS 2+; MACROCYTOSIS 0
[2023-11-09] MEDS: FUROSEMIDE 40 MG TABLET (FP) PO ONE (12:03)
[2023-11-09] MEDS: LIDOCAINE 4% PATCH TP SCH (17:08)
[2023-11-09] MEDS: MAGNESIUM OXIDE 400 MG TABLET (FP) PO ONE (17:08)
[2023-11-09] MEDS: LIDOCAINE PATCH REMOVAL MC SCH (21:34)
[2023-11-09] MEDS: MAGNESIUM SULFATE IN WATER 2 GM/50 ML IVPB IVPB ONE (23:17)
[2023-11-09] MEDS: NAPH,MB-DB/K PH,MBDB POWDER PACKET PO ONE (23:17)
[2023-11-10] MEDS ORDERED: ACETAMINOPHEN 325 MG TABLET (FP) PO PRN (08:47)
[2023-11-10] MEDS ORDERED: oxyCODONE HCL 5 MG TABLET PO PRN ×2 (08:47→08:49)
[2023-11-10 10:24] LABS: POTASSIUM 3.9 mmol/L (3.5-5.1)
[2023-11-10 10:30] LABS: ALBUMIN 2.6 g/dl (3.4-5.0); BLOOD UREA NITROGEN 17.7 mg/dL (7-18); CALCIUM 9.9 mg/dL (8.5-10.1)
[2023-11-10 10:33] LABS: CREATININE 0.8 mg/dL (0.55-1.3)
[2023-11-10 10:34] LABS: PHOSPHOROUS 2.6 mg/dL (2.5-4.9)
[2023-11-10 10:35] LABS: BILIRUBIN,TOTAL 0.8 mg/dL (0.2-1); TOT PROT 5.8 g/dl (6.4-8.2)
[2023-11-10] MEDS: IBUPROFEN 600 MG TABLET (FP) PO SCH (12:13)
[2023-11-10] MEDS ORDERED: ACETAMINOPHEN 325 MG TABLET (FP) PO SCH (15:00)
[2023-11-10] MEDS: ACETAMINOPHEN 500 MG TABLET (FP) PO SCH (15:06)
[2023-11-10] MEDS: guaiFENesin/D-METHORPHAN HB 10 ML UNIT-DOSE CUPS PO PRN (15:18)
[2023-11-11 09:27] LABS: POTASSIUM 4.1 mmol/L (3.5-5.1)
[2023-11-11 09:31] LABS: ALBUMIN 2.5 g/dl (3.4-5.0); BLOOD UREA NITROGEN 30.6 mg/dL (7-18); CALCIUM 9.5 mg/dL (8.5-10.1); MAGNESIUM 2.2 mg/dL (1.8-2.4)
[2023-11-11 09:34] LABS: CREATININE 1.3 mg/dL (0.55-1.3); PHOSPHOROUS 3.1 mg/dL (2.5-4.9)
[2023-11-11 09:36] LABS: BILIRUBIN,TOTAL 0.5 mg/dL (0.2-1); TOT PROT 5.3 g/dl (6.4-8.2)
[2023-11-11] MEDS: LACTATED RINGERS SOLUTION 1,000 ML/1,000 ML INFUS.BAG IV SCH (21:45)
[2023-11-11] MEDS: oxyCODONE HCL 5 MG TABLET PO PRN (21:48)
[2023-11-11] MEDS: SILVER SULFADIAZINE 1% TOP CREAM 400 GM JAR TP SCH (22:51)
[2023-11-12 09:52] LABS: POTASSIUM 4.4 mmol/L (3.5-5.1)
[2023-11-12 10:05] LABS: ALBUMIN 2.6 g/dl (3.4-5.0); BLOOD UREA NITROGEN 37.8 mg/dL (7-18); CALCIUM 9.7 mg/dL (8.5-10.1)
[2023-11-12 10:06] LABS: MAGNESIUM 2.3 mg/dL (1.8-2.4)
[2023-11-12 10:09] LABS: CREATININE 1.3 mg/dL (0.55-1.3); PHOSPHOROUS 3.2 mg/dL (2.5-4.9)
[2023-11-12 10:10] LABS: BILIRUBIN,TOTAL 0.6 mg/dL (0.2-1); TOT PROT 5.8 g/dl (6.4-8.2)
[2023-11-12] MEDS: SODIUM CHLORIDE NASAL SPRAY 44 ML BOTTLE NS SCH (13:41)
[2023-11-12] MEDS: LACTATED RINGERS SOLUTION 1,000 ML/1,000 ML INFUS.BAG IV SCH (13:42)
[2023-11-13 12:30] LABS: CALCIUM 9.6 mg/dL (8.5-10.1)
[2023-11-13 12:32] LABS: BLOOD UREA NITROGEN 24.9 mg/dL (7-18)
[2023-11-13] MEDS: ONDANSETRON 4 MG/2 ML VIAL IVPUSH PRN (18:34)
[2023-11-14] MEDS: POLYETHYLENE GLYCOL (HEALTHYLAX) 3350 17 GM PACKET PO SCH (09:30)
[2023-11-14] MEDS: SENNOSIDES 8.6MG TABLET (FP) PO SCH (21:09)
[2023-11-15] MEDS: ACETAMINOPHEN 325 MG TABLET (FP) PO ONE (09:33)
[2023-11-16 10:13] LABS: HEMATOCRIT 25.1 % (32.4-45.2); HEMOGLOBIN 7.6 GM/dL (10.7-15.3); MCH 26.4 pg (25.7-33.7); MCHC 30.2 g/dl (32.0-36.0); MEAN CELL VOLUME 87.5 fl (80-96); MEAN PLT VOLUME 7.9 fl (7.5-11.1); PLATELET COUNT 122 10^3/uL (134-434); RBC 2.86 M/mm3 (3.60-5.2); RDW 21.1 % (11.6-15.6); WHITE BLOOD COUNT 4.8 K/mm3 (4.0-10.0)
[2023-11-16 10:47] LABS: ALBUMIN 2.8 g/dl (3.4-5.0); BILIRUBIN,TOTAL 0.5 mg/dL (0.2-1); BLOOD UREA NITROGEN 22.5 mg/dL (7-18); CALCIUM 9.5 mg/dL (8.5-10.1); CREATININE 0.9 mg/dL (0.55-1.3); POTASSIUM 4.7 mmol/L (3.5-5.1); TOT PROT 5.8 g/dl (6.4-8.2)
[2023-11-16 11:09] LABS: ANISOCYTOSIS 2+; MACROCYTOSIS 0
[2023-11-16] MEDS: BISACODYL 5 MG TABLET.DR (FP) PO ONE (11:59)
[2023-11-16] MEDS: ACETAMINOPHEN 325 MG TABLET (FP) PO PRN (17:39)
[2023-11-17 11:34] LABS: HEMATOCRIT 27.3 % (32.4-45.2); HEMOGLOBIN 8.3 GM/dL (10.7-15.3); MCH 26.4 pg (25.7-33.7); MCHC 30.3 g/dl (32.0-36.0); MEAN CELL VOLUME 87.1 fl (80-96); MEAN PLT VOLUME 8.2 fl (7.5-11.1); PLATELET COUNT 140 10^3/uL (134-434); RBC 3.14 M/mm3 (3.60-5.2); RDW 21.1 % (11.6-15.6); WHITE BLOOD COUNT 5.5 K/mm3 (4.0-10.0)
[2023-11-17 12:09] LABS: POTASSIUM 4.4 mmol/L (3.5-5.1)
[2023-11-17 12:12] LABS: ANISOCYTOSIS 1+; MACROCYTOSIS 0
[2023-11-17 12:20] LABS: ALBUMIN 2.8 g/dl (3.4-5.0); CALCIUM 9.8 mg/dL (8.5-10.1)
[2023-11-17 12:21] LABS: BLOOD UREA NITROGEN 20.2 mg/dL (7-18); MAGNESIUM 1.8 mg/dL (1.8-2.4)
[2023-11-17 12:24] LABS: CREATININE 0.9 mg/dL (0.55-1.3); PHOSPHOROUS 2.8 mg/dL (2.5-4.9)
[2023-11-17 12:25] LABS: BILIRUBIN,TOTAL 0.5 mg/dL (0.2-1)
[2023-11-17] MEDS: QUEtiapine FUMARATE 25 MG TABLET PO ONE (18:56)
[2023-11-17] MEDS: ZOLPIDEM TARTRATE 5 MG TABLET PO ONE (18:58)
[2023-11-18] MEDS: ONDANSETRON *ODT* 4 MG TABLET SL PRN (09:37)
[2023-11-18] MEDS: BISACODYL 10 MG SUPP.RECT PR ONE (10:53)
[2023-11-18 15:53] VITALS: RESP 20
[2023-11-18 17:18] VITALS: BP 128/76; PULSE 87; TEMP 98.5
== END 2023-11-18 18:40 | DRG 206 ==
LOC: JER 07:09 → JERBED 12:45 → J6W 18:36 → OBSVTOIN 11-09 20:31
PROVIDERS: ADMIT Internal Medicine
DX: M94.0 Chondrocostal junction syndrome [Tietze] (principal); N17.9 Acute kidney failure, unspecified; I50.32 Chronic diastolic (congestive) heart failure; I48.19 Other persistent atrial fibrillation; M06.9 Rheumatoid arthritis, unspecified; I25.119 Atherosclerotic heart disease of native coronary artery with unspecified angina pectoris; I71.20 Thoracic aortic aneurysm, without rupture, unspecified; I11.0 Hypertensive heart disease with heart failure; E11.9 Type 2 diabetes mellitus without complications; G47.00 Insomnia, unspecified; M10.9 Gout, unspecified; E78.5 Hyperlipidemia, unspecified; R52 Pain, unspecified; Z95.5 Presence of coronary angioplasty implant and graft; Z85.22 Personal history of malignant neoplasm of nasal cavities, middle ear, and accessory sinuses
CPT/HCPCS: 36415; 71250-TC; 80048; 80053; 82728; 83540; 83550; 83735; 84100; 84443; 84466; 84484; 85025; 87635; 93005; 93010; 93306-TC; 94010; 94640; 97116-GP; 97161-GP; 99285-25; G0378; Q0162